=== PATIENT | male | born 1965 | race Two or more races ===

== ENCOUNTER 2020-09-08 10:40 | Outpatient (REF) | payer MEDICARE, MEDICAID, SELFPAY ==
--- NOTE | 2020-09-08 10:52 | XR_ITS ---
EXAMINATION: XR ANKLE, RIGHT XR ANKLE, LEFT CLINICAL INFORMATION: Prior fracture right ankle. Follow-up. Unspecified injury left ankle, initial encounter. COMPARISON: Radiographs right ankle 01/25/2019, 11/19/2018 TECHNIQUE: 3 views of the right ankle and 3 views of the left ankle are obtained separately. There are a total of 6 views. FINDINGS: Right ankle: There is mild posttraumatic deformity distal tibia with some remodeling again noted. There is no acute or healing fracture or dislocation or destructive process. Old screw tracks again noted mid to lower tibial shaft. The talar dome shows no osteochondral lesion. The subtalar joint is unremarkable. There is mild dorsal spurring navicular. Moderate posterior calcaneal spur is present. The retrocalcaneal recess is preserved. Left ankle: There is soft tissue swelling, greater on the lateral side. The malleoli appear intact and the ankle mortise is symmetric. There is a 7 mm linear ossification adjacent to the lateral talar neck which may represent a cortical avulsion. Otherwise, there is no fracture or dislocation. The talar dome shows no osteochondral lesion. There is a small incidental corticated ossicle adjacent to tip medial malleolus. The subtalar joint is not well visualized lateral view likely related to positioning. There is small posterior and borderline plantar calcaneal spurs. XR/XR ankle RT min 3V IMPRESSION: 1. Right: Old posttraumatic deformity distal tibia. No acute or healing fracture. No destructive process. Moderate posterior calcaneal spur. 2. Left: Soft tissue swelling, greater on lateral side. Question fine linear cortical avulsion from lateral talar neck.
== END 2020-09-08 10:41 | disposition home or self-care (01) ==
LOC: HO.XRAY 10:40
PROVIDERS: PCP Internal Medicine; Referring Provider Internal Medicine; Visit Provider Orthopaedic Surgery
DX: S99.912A Unspecified injury of left ankle, initial encounter (principal); S82.891A Other fracture of right lower leg, initial encounter for closed fracture
CPT/HCPCS: 73610; 99212

== ENCOUNTER → 2021-04-19 13:47 | Outpatient (BNVA) | payer OTHER, SELFPAY | PROVIDERS: Visit Provider Orthopaedic Surgery | DX: S99.912D Unspecified injury of left ankle, subsequent encounter (principal) | CPT/HCPCS: 99212 ==

== ENCOUNTER 2021-05-19 03:33 | Emergency (ER) | payer OTHER, SELFPAY ==
[2021-05-19 03:43] VITALS: BP 138/64; BP 142/77; PULSE 47; PULSE 60; RESP 18; TEMP 36.8; O2SAT 98; BMI 27.1
[2021-05-19 05:46] VITALS: BP 168/78; PULSE 52; RESP 17; O2SAT 99
--- NOTE | 2021-05-19 06:02 | PC.NURSE ---
Anirudh bandage applied to L ankle per Dr Huntley's instructions
--- NOTE | 2021-05-19 06:09 | ED.EXTPRO ---
HPI - Extremity Problem General Chief complaint: Extremity Problem Stated complaint: ankle pain Time Seen by Provider: 05/19/21 06:09 Source: patient Mode of arrival: ambulatory History of Present Illness HPI Narrative: 55-year-old male with history of hypertension presents with persistent swelling and discomfort at the left ankle that has been ongoing since he sprained at approximately 7 months ago. He denies any associated redness or injury to the left foot and states that he follow-up with his primary care provider who has referred him to physical therapy. Patient states that around the ankle it continues to swell throughout the day while he is walking. Related Data Home Medications Medication Instructions Recorded Confirmed atenolol 100 mg tablet 100 mg PO DAILY 09/08/20 09/18/20 atorvastatin 20 mg tablet 20 mg PO DAILY 09/08/20 09/18/20 gabapentin 300 mg capsule 300 mg PO DAILY 09/08/20 09/18/20 nifedipine 30 mg tablet,extended 30 mg PO DAILY 09/08/20 09/18/20 release Allergies Allergy/AdvReac Type Severity Reaction Status Date / Time NSAIDS (Non-Steroidal Allergy Mild RASH Verified 05/19/21 03:43 Anti-Inflamma [Nsaids] Penicillins Allergy Mild RASH Verified 05/19/21 03:43 cyclobenzaprine Allergy Unknown UNKNOWN Verified 05/19/21 03:43 [CYCLOBENZAPRINE] ibuprofen Allergy Unknown GI upset, Verified 05/19/21 03:43 STOMACH PAIN AND VOMITING lisinopril [LISINOPRIL] Allergy Unknown UNKNOWN, Verified 05/19/21 03:43 swelling, rash, SEVERE LEG EDEMA naproxen Allergy Unknown Unknown Verified 05/19/21 03:43 penicillin V Allergy Unknown rash Verified 05/19/21 03:43 tramadol [From ULTRAM] Allergy Unknown SEIZURES Verified 05/19/21 03:43 Motrin Allergy Unknown STOMACH Uncoded 05/19/21 03:43 PAIN AND VOMITING Review of Systems Review of Systems: Pertinent positives and negatives as stated in HPI 10 point review of systems otherwise negative. COUNTS INCLUDE 234 BEDS AT THE [facility] Past Medical History Source: nursing notes reviewed Medical History Closed right ankle fracture Injury of left ankle Surgical History Status post insertion of spinal cord stimulator Family History Family History Mother No problems noted. Father No problems noted. Social History Social History Alcohol intake: never Advance Directives: No Advance Directives Information Provided: No Current occupational status: unemployed Physical Exam Vital Signs: Vital Signs: Last Vital Signs Temp 98.3 F 05/19/21 03:43 Pulse 52 05/19/21 05:46 Resp 17 05/19/21 05:46 BP 168/78 H 05/19/21 05:46 Pulse Ox 99 05/19/21 05:46 Body Mass Index 27.1 VITAL SIGNS: Reviewed. GENERAL: Well developed, well nourished, in no acute distress. HEAD: Normocephalic/atraumatic EYES: PERRLA, EOMI OROPHARYNX: no oral lesions noted, posterior pharynx clear LUNGS: Normal breath sounds. No adventitious sounds or accessory muscle use. SpO2<99> CARDIOVASCULAR: Regular rate and rhythm without noted murmurs ABDOMEN: Soft, non-tender, non-distended with bowel sounds. LEFT ANKLE: No deformities noted but mild swelling noted to the lateral malleolus, capillary refill less than 3 seconds, sensation is intact, palpable DP and PT SKIN: Inspection of the skin reveals no rashes NEUROLOGIC: Alert and oriented x 4. Course Course Course Narrative: 55-year-old male with history and clinical presentation consistent with persistent swelling likely secondary to venous insufficiency no evidence to suggest infection or vascular compromise. Discussed with patient the use compression while awaiting his appointment with physical therapy this coming . Anirudh wrap was placed and patient was discharged in stable condition. Discharge Plan Discharge Clinical Impression: Chronic pain of left ankle Patient Disposition: Home, Self-Care Instructions: Swollen Joint (ED) Additional Instructions: 1. Resume all home medications as prescribed. 2. Please follow-up with your primary care provider for re-evaluation and further outpatient management. 3. Recommend keeping some form of compression to the left ankle until you are evaluated by physical therapy. Return to the ER for acute worsening of symptoms. Prescriptions: No Action atenolol 100 mg tablet 100 mg PO DAILY RF: 0 nifedipine 30 mg tablet extended release 30 mg PO DAILY RF: 0 gabapentin 300 mg capsule 300 mg PO DAILY RF: 0 atorvastatin 20 mg tablet 20 mg PO DAILY RF: 0 Referrals: Physician,Unknown [Primary Care Provider] - 2 days
== END 2021-05-19 06:31 | disposition home or self-care (01) ==
PROVIDERS: Emergency Provider Student in an Organized Health Care Education/Training Program
DX: M25.572 Pain in left ankle and joints of left foot (principal); G89.29 Other chronic pain; I10 Essential (primary) hypertension; Z79.899 Other long term (current) drug therapy
CPT/HCPCS: 99283; 99284

== ENCOUNTER 2021-06-01 09:43 | Outpatient (REF) | payer OTHER, SELFPAY | END 2021-06-01 09:44 | disposition home or self-care (01) | LOC: HO.LAB 09:43 | PROVIDERS: PCP Registered Nurse; Visit Provider Registered Nurse | DX: Z13.89 Encounter for screening for other disorder (principal) ==

== ENCOUNTER 2021-06-05 06:42 | Outpatient (REF) | payer OTHER, SELFPAY ==
[2021-06-05 07:45] LABS: Blood Urea Nitrogen 19 mg/dL (9-16); Estimated Glomerular Filt Rate 58
== END 2021-06-05 06:43 | disposition home or self-care (01) ==
LOC: HO.LAB 06:42
PROVIDERS: PCP Registered Nurse; Visit Provider Registered Nurse
DX: Z00.00 Encounter for general adult medical examination without abnormal findings (principal); I10 Essential (primary) hypertension
CPT/HCPCS: 36415; 82565; 84520

== ENCOUNTER 2021-06-06 08:25 | Outpatient (REF) | payer OTHER, SELFPAY ==
--- NOTE | ~2021-06-06 | CT_ITS ---
EXAMINATION: CT LEFT ANKLE WITH CONTRAST, LEFT CT FOOT WITH CONTRAST, LEFT CLINICAL INFORMATION: Left ankle and foot swelling and pain. COMPARISON: Most recent right ankle radiographs dated 09/08/2020. TECHNIQUE: Contiguous axial CT images of the left ankle and foot were obtained following the administration of 85 mL Omnipaque 350 contrast. Multiplanar reformats were provided and reviewed. FINDINGS: Evaluation somewhat limited secondary to patient motion. Motion artifact through the midfoot at the level of the metatarsals. No acute fracture or dislocation. No significant joint space narrowing or marginal osteophytes. No talar osteochondral lesion. No concerning lytic or blastic osseous lesion. Corticated ossifications adjacent to the medial malleolus, likely representing accessory ossicles versus remote fracture fragments. Small ossification within the distal posterior tibialis tendon. Mild enthesopathic spurring at the anterior aspect of the lateral malleolus. Additional tiny ossifications adjacent to the lateral malleolus, which likely represent a remote avulsion injuries. The visualized flexor and extensor tendons are grossly intact, however, evaluation is limited on CT examination. Lateral subcutaneous edema. No abnormal soft tissue mass or fluid collection. No abnormal soft tissue enhancement. CT/CT foot LT w con IMPRESSION: 1. Lateral soft tissue swelling without organized soft tissue fluid collection or mass. No abnormal soft tissue enhancement. 2. No acute fracture or dislocation. Accessory ossicles versus remote fracture fragments adjacent to the medial and lateral malleoli.
--- NOTE | ~2021-06-06 | CT_ITS ---
EXAMINATION: CT LEFT ANKLE WITH CONTRAST, LEFT CT FOOT WITH CONTRAST, LEFT CLINICAL INFORMATION: Left ankle and foot swelling and pain. COMPARISON: Most recent right ankle radiographs dated 09/08/2020. TECHNIQUE: Contiguous axial CT images of the left ankle and foot were obtained following the administration of 85 mL Omnipaque 350 contrast. Multiplanar reformats were provided and reviewed. FINDINGS: Evaluation somewhat limited secondary to patient motion. Motion artifact through the midfoot at the level of the metatarsals. No acute fracture or dislocation. No significant joint space narrowing or marginal osteophytes. No talar osteochondral lesion. No concerning lytic or blastic osseous lesion. Corticated ossifications adjacent to the medial malleolus, likely representing accessory ossicles versus remote fracture fragments. Small ossification within the distal posterior tibialis tendon. Mild enthesopathic spurring at the anterior aspect of the lateral malleolus. Additional tiny ossifications adjacent to the lateral malleolus, which likely represent a remote avulsion injuries. The visualized flexor and extensor tendons are grossly intact, however, evaluation is limited on CT examination. Lateral subcutaneous edema. No abnormal soft tissue mass or fluid collection. No abnormal soft tissue enhancement. CT/CT ankle LT w con IMPRESSION: 1. Lateral soft tissue swelling without organized soft tissue fluid collection or mass. No abnormal soft tissue enhancement. 2. No acute fracture or dislocation. Accessory ossicles versus remote fracture fragments adjacent to the medial and lateral malleoli.
[2021-06-06] MEDS: iohexoL 350 MG/ML 100 ML INFUS..BTL IV (10:02)
== END 2021-06-06 08:26 | disposition home or self-care (01) ==
LOC: HO.CT 08:25
PROVIDERS: PCP Registered Nurse; Visit Provider Registered Nurse
DX: M25.572 Pain in left ankle and joints of left foot (principal); M79.605 Pain in left leg
CPT/HCPCS: 73701; Q9967

== ENCOUNTER 2021-06-11 12:00 | Outpatient (RCR) | payer OTHER, SELFPAY | END 2021-07-12 13:35 | disposition home or self-care (01) | LOC: HO.PT 12:00 | PROVIDERS: PCP Registered Nurse; Visit Provider Registered Nurse | DX: M79.605 Pain in left leg (principal) | CPT/HCPCS: 97110; 97140; 97161; 97530 ==

== ENCOUNTER 2021-06-17 10:40 | Emergency (ER) | payer OTHER, SELFPAY ==
--- NOTE | ~2021-06-17 | US_ITS ---
EXAMINATION: US VENOUS ULTRASOUND WITH DOPPLER LOWER EXTREMITY, LEFT CLINICAL INFORMATION: Left ankle swelling COMPARISON: None TECHNIQUE: Ultrasound of the deep veins is performed from the hip to the calf with compression sonography and color and pulse Doppler assessment. Spectral analysis with color-flow imaging is performed. FINDINGS: There is normal venous compression and respiratory variation and augmented flow. The visualized common femoral vein, superficial femoral vein, profunda femoral vein, popliteal vein, and the trifurcation region shows no evidence of deep venous thrombosis. There is no significant popliteal fossa cyst. If the patient's symptoms persist, followup ultrasound in 5 days 7 days might be of value to exclude proximal propagation from a non-visualized calf vein. US/US venous duplex LE LT IMPRESSION: No DVT demonstrated in the left lower extremity.
[2021-06-17 11:38] VITALS: BP 143/60; PULSE 54; RESP 18; TEMP 35.8; O2SAT 100; BMI 26.8
--- NOTE | 2021-06-17 14:44 | ED.EXTPRO ---
HPI - Extremity Problem General Chief complaint: Extremity Problem <GERRI Constantino Last Filed: 06/17/21 16:05> Stated complaint: left ankle pain <GERRI Constantino Last Filed: 06/17/21 16:05> Time Seen by Provider: 06/17/21 12:57 <GERRI Constantino Last Filed: 06/17/21 16:05> Source: patient <GERRI Constantino Last Filed: 06/17/21 16:05> Mode of arrival: ambulatory <GERRI Constantino Last Filed: 06/17/21 16:05> Limitations: no limitations <GERRI Constantino Last Filed: 06/17/21 16:05> History of Present Illness HPI Narrative: Patient presents to ED for left ankle pain and intermittent left ankle swelling for the past 8 months. Denies any leg swelling, knee swelling, thigh swelling, chest pain, shortness of breath, recent long travel, recent surgery, any recent trauma. Patient's CT scan results last week awaiting for results. Patient states last night his left ankle was significantly swollen and woke up this morning the swelling resolved. Patient state right lower extremity is normal. <GERRI Constantino Last Filed: 06/17/21 16:05> MD Complaint: extremity pain and extremity swelling <GERRI Constantino Last Filed: 06/17/21 16:05> Related Data Home medications: Home Medications Medication Instructions Recorded Confirmed atenolol 100 mg tablet 100 mg PO DAILY 09/08/20 09/18/20 atorvastatin 20 mg tablet 20 mg PO DAILY 09/08/20 09/18/20 gabapentin 300 mg capsule 300 mg PO DAILY 09/08/20 09/18/20 nifedipine 30 mg tablet,extended 30 mg PO DAILY 09/08/20 09/18/20 release Previous Rx's Medication Instructions Recorded oxycodone-acetaminophen 5 mg-325 1 tab PO TID PRN #9 tab 06/17/21 mg tablet (Percocet) <GERRI Constantino Last Filed: 06/17/21 16:05> Allergies/Adverse reactions: Allergies Allergy/AdvReac Type Severity Reaction Status Date / Time NSAIDS (Non-Steroidal Allergy Mild RASH Verified 06/25/21 09:50 Anti-Inflamma [Nsaids] Penicillins Allergy Mild RASH Verified 06/25/21 09:50 cyclobenzaprine Allergy Unknown UNKNOWN Verified 06/25/21 09:50 [CYCLOBENZAPRINE] ibuprofen Allergy Unknown GI upset, Verified 06/25/21 09:50 STOMACH PAIN AND VOMITING lisinopril [LISINOPRIL] Allergy Unknown UNKNOWN, Verified 06/25/21 09:50 swelling, rash, SEVERE LEG EDEMA naproxen Allergy Unknown Unknown Verified 06/25/21 09:50 penicillin V Allergy Unknown rash Verified 06/25/21 09:50 tramadol [From ULTRAM] Allergy Unknown SEIZURES Verified 06/25/21 09:50 Motrin Allergy Unknown STOMACH Uncoded 06/25/21 09:50 PAIN AND VOMITING <GERRI Constantino Last Filed: 06/17/21 16:05> Review of Systems Review of Systems: Yes all other systems are reviewed and are negative and unobtainable due to endotracheal tube <GERRI Constantino Last Filed: 06/17/21 16:05> Constitutional: Constitutional: Reports as per HPI and Reports no additional constitutional complaints <GERRI Constantino Last Filed: 06/17/21 16:05> Eyes: Eyes: Reports as per HPI and Reports no additional eye complaints <GERRI Constantino Last Filed: 06/17/21 16:05> ENT: Reports system reviewed and no additional complaints, except as documented and Reports as per HPI <GERRI Constantino Last Filed: 06/17/21 16:05> Cardiovascular: Cardiovascular: Reports as per HPI and Reports no additional cardiovascular complaints <GERRI Constantino Last Filed: 06/17/21 16:05> Respiratory: Respiratory: Reports as per HPI and Reports no additional respiratory complaints <GERRI Constantino Last Filed: 06/17/21 16:05> Gastrointestinal: Gastrointestinal: Reports as per HPI and Reports no additional gastrointestinal complaints <GERRI Constantino Last Filed: 06/17/21 16:05> Genitourinary: Genitourinary: Reports as per HPI <GERRI Constantino Last Filed: 06/17/21 16:05> Musculoskeletal: Musculoskeletal: Reports no additional musculoskeletal complaints and Reports arthralgias (Ankle) <GERRI Constantino Last Filed: 06/17/21 16:05> Neurologic: Reports system reviewed and no additional complaints, except as documented and Reports as per HPI <GERRI Constantino - Last Filed: 06/17/21 16:05> Psychiatric: Psychiatric: Reports no additional psychiatric complaints and Reports as per HPI <GERRI Constantino - Last Filed: 06/17/21 16:05> Endocrine: Endocrine: Reports no additional endocrine complaints and Reports as per HPI <GERRI Constantino - Last Filed: 06/17/21 16:05> [facility] Past Medical History Medical History: Medical History Closed right ankle fracture Injury of left ankle <GERRI Constantino - Last Filed: 06/17/21 16:05> Surgical History: Surgical History Status post insertion of spinal cord stimulator <GERRI Constantino - Last Filed: 06/17/21 16:05> Family History Family History: Family History Mother No problems noted. Father No problems noted. <GERRI Constantino - Last Filed: 06/17/21 16:05> Social History Social History: Social History Alcohol intake: never Advance Directives: Yes Advance Directives Information Provided: Yes Advance Directives on File: No Current occupational status: unemployed <GERRI Constantino - Last Filed: 06/17/21 16:05> Physical Exam Vital Signs: Vital Signs: Last Vital Signs Temp 98.0 F 06/17/21 14:57 Pulse 55 06/17/21 14:57 Resp 16 06/17/21 14:57 BP 140/75 H 06/17/21 14:57 Pulse Ox 100 06/17/21 14:57 Body Mass Index 26.8 <GERRI Constantino Last Filed: 06/17/21 16:05> Vital Signs: Last Vital Signs Temp 98.0 F 06/17/21 14:57 Pulse 55 06/17/21 14:57 Resp 16 06/17/21 14:57 BP 140/75 H 06/17/21 14:57 Pulse Ox 100 06/17/21 14:57 Body Mass Index 26.8 <Rosendo Escobar DO - Last Filed: 07/16/21 11:17> Const: General: cooperative, healthy appearing, comfortable, no acute distress, well developed, alert, awake and Physically active <GERRI Constantino Last Filed: 06/17/21 16:05> Orientation/consciousness: patient oriented x3 <GERRI Constantino Last Filed: 06/17/21 16:05> HENMT: Head: Yes normal to inspection, Yes No palpable skull fracture present, Yes normocephalic, Yes atraumatic and No abrasion <GERRI Cosntantino Last Filed: 06/17/21 16:05> Eyes: General: appearance normal, both eyes and all related structures <GERRI Constantino Last Filed: 06/17/21 16:05> Neck: Neck: Yes normal visual inspection, Yes full ROM, Yes no lymphadenopathy, Yes no meningeal signs, Yes trachea midline, Yes supple and No tender <GERRI Constantino Last Filed: 06/17/21 16:05> Chest: Chest palpation & inspection: normal inspection of the chest and normal palpation of entire chest wall <GERRI Constantino Last Filed: 06/17/21 16:05> Resp: Effort & Inspection: normal respiratory effort and able to speak in complete sentences <GERRI Constantino Last Filed: 06/17/21 16:05> Auscultation: clear to auscultation bilaterally <GERRI Constantino Last Filed: 06/17/21 16:05> Cardio: Jugular venous distension: no JVD <GERRI Constantino Last Filed: 06/17/21 16:05> Heart sounds: S1 normal heart sound present and S2 normal heart sound present <GERRI Constantino Last Filed: 06/17/21 16:05> GI: Inspection: Yes normal to inspection and No abdominal wall ecchymosis <GERRI Constantino Last Filed: 06/17/21 16:05> Palpation (GI): not firm, nontender, no guarding and not rigid <GERRI Constantino Mansoor Last Filed: 06/17/21 16:05> : General: No CVA tenderness and Yes no CVA tenderness <GERRI Constantino Mansoor Last Filed: 06/17/21 16:05> Back/Spine/Pelvis: Back: no CVA tenderness, No CVA tenderness and No Berumen-Mckay sign present <GERIR Constantino Mansoor Last Filed: 06/17/21 16:05> Skin: General skin exam: no rashes or lesions noted and elasticity normal <GERRI Constantino Mansoor Last Filed: 06/17/21 16:05> Neuro: General: patient oriented x3, gait normal and no meningeal signs <GERRI Constantino Mansoor Last Filed: 06/17/21 16:05> Cranial nerves: Yes CN's II-XII intact bilaterally <GERRI Constantino Last Filed: 06/17/21 16:05> Extrem: Other: Right lower extremity normal. Motor/neuro/vascular exam intact. Negative for right lower extremity swelling. <GERRI Constantino Mansoor Last Filed: 06/17/21 16:05> General: Yes normal to inspection and Yes full ROM <GERRI Constantino Filed: 06/17/21 16:05> Ankle/foot/toe images: 1. Mild tenderness on palpation. Presently negative for any swelling of left lower extremity. Motor/vascular/neuro exam is intact. Negative for any open wounds, pus discharge, foul odor, redness, black/blue discoloration, coolness, or hotness. Negative for any pitting edema <GERRI Constantino Mansoor Last Filed: 06/17/21 16:05> Psych: Appearance: grossly normal, well kempt and not disheveled <GERRI Constantino Last Filed: 06/17/21 16:05> Course Course Course Narrative: Patient show me a picture on his phone of his left ankle yesterday that was significantly swollen. Although presently negative for any swelling of left lower extremity was sent for ultrasound to rule out DVT. Will review CT scan results. <GERRI Constantino Mansoor Last Filed: 06/17/21 16:05> Reevaluation(s) Reevaluation #1: Ultrasound negative for DVT. CT scan was reviewed and shows accessory ossicles versus remote fracture fragment medial and lateral malleoli. Patient having the symptoms for the past 8 months. no splint indicated. Patient will be placed <GERRI Constantino - Last Filed: 06/17/21 16:05> Time: 15:02 <GERRI Constantino - Last Filed: 06/17/21 16:05> MDM - Extremity (Nontraumatic) MDM Narrative Medical decision making narrative: Chronic ankle pain <GERRI Constantino Last Filed: 06/17/21 16:05> Discharge Plan Discharge Clinical Impression: Ankle pain, left, Lower extremity edema <GERRI Constantino Last Filed: 06/17/21 16:05> Patient Disposition: Home, Self-Care <GERRI Constantino Last Filed: 06/17/21 16:05> Instructions: Arthralgia (ED) <GERRI Constantino Last Filed: 06/17/21 16:05> Additional Instructions: Lower extremity ultrasound came back negative for blood clot. Ankle CT was reviewed and shows accessary ossicles versus old fracture fragments of the medial and lateral malleoli. Please follow-up with your PCP and orthopedic. Return to the ED for any leg pain, calf swelling, chest pain, shortness of breath, redness of lower extremities, pus discharge, foul odor, fever, or chills. <GERRI Constantino Last Filed: 06/17/21 16:05> Prescriptions: New oxycodone-acetaminophen [Percocet] 5-325 mg tablet 1 tab PO TID PRN (Reason: pain) Qty: 9 RF: 0 No Action atenolol 100 mg tablet 100 mg PO DAILY RF: 0 nifedipine 30 mg tablet extended release 30 mg PO DAILY RF: 0 gabapentin 300 mg capsule 300 mg PO DAILY RF: 0 atorvastatin 20 mg tablet 20 mg PO DAILY RF: 0 <GERRI Constantino Last Filed: 06/17/21 16:05> Referrals: Alcon Reza MD [Physician] - 2 days (Left ankle accessory ossicles versus remote old fracture fragments of medial and lateral malleoli.) <GERRI Constantino Last Filed: 06/17/21 16:05> Stand Alone Forms: Work/School Release <GERRI Constantino - Last Filed: 06/17/21 16:05> Interventions: ED Discharge Assessment Last Done: 06/17/21 15:15 <GERRI Constantino - Last Filed: 06/17/21 16:05> Discharge Date/Time: 06/17/21 15:16 <GERRI Constantino - Last Filed: 06/17/21 16:05> Print Language: Occitan <GERRI Constantino - Last Filed: 06/17/21 16:05>
[2021-06-17 14:57] VITALS: BP 140/75; PULSE 55; RESP 16; TEMP 36.7; O2SAT 100
== END 2021-06-17 15:16 | disposition home or self-care (01) ==
PROVIDERS: Emergency Provider Student in an Organized Health Care Education/Training Program; PCP Registered Nurse
DX: M25.572 Pain in left ankle and joints of left foot (principal); R60.0 Localized edema; Z79.899 Other long term (current) drug therapy
CPT/HCPCS: 93971; 99284

== ENCOUNTER → 2021-06-21 12:02 | Outpatient (BNVA) | payer OTHER, SELFPAY | PROVIDERS: PCP Registered Nurse; Visit Provider Orthopaedic Surgery | DX: S99.912D Unspecified injury of left ankle, subsequent encounter (principal); M19.079 Primary osteoarthritis, unspecified ankle and foot | CPT/HCPCS: 99212 ==

== ENCOUNTER 2021-06-25 09:32 | Emergency (ER) | payer OTHER, SELFPAY ==
--- NOTE | ~2021-06-25 | XR_ITS ---
EXAMINATION: XR RIBS, RIGHT CLINICAL INFORMATION: Right-sided lower rib pain. Injury. COMPARISON: None TECHNIQUE: 3 views of the right ribs were obtained. FINDINGS: The lungs are well-expanded and clear of acute process. The heart size and pulmonary vascularity is normal. There is epidural electrode in the mid cervical spine. There is moderate spondylosis throughout the dorsal spine. Multiple views of right ribs reveal no visible rib fracture or bony abnormality. The soft tissues are normal. XR/XR ribs RT min 3V w CXR1V IMPRESSION: Unremarkable chest exam. Unremarkable right rib exam.
[2021-06-25 09:50] VITALS: BP 154/87; PULSE 63; RESP 18; TEMP 37.2; O2SAT 99; BMI 26.8
--- NOTE | 2021-06-25 10:35 | ED_ITS ---
HPI - General Adult General Chief complaint: General Medical Stated complaint: rib pain Time Seen by Provider: 06/25/21 10:20 Source: patient Mode of arrival: ambulatory Limitations: no limitations History of Present Illness HPI narrative: Patient presents to the ED for right lower rib pain that is worse on movement, heavy lifting, and when he takes a deep breath. Patietn states right rib trauma that occurred last week. patient states by accident he walked into the open door of his uncle's car. Patient states he walked into the edge/blunt metal part of the door pretty hard and ever since that trauma he has had those symptoms. patient states he had significant bruise in that area, but it improved. Patient denies any other trauma. Patient denies any rectal bleeding, coughing up blood, abdominal pain, headache, or rectal bleeding. Patient denies any recent surgery, recent long travel, any estrogen use, drug use or any pmh of blood clots. patient vaccinaged against covid. Related Data Home Medications Medication Instructions Recorded Confirmed atenolol 100 mg tablet 100 mg PO DAILY 09/08/20 09/18/20 atorvastatin 20 mg tablet 20 mg PO DAILY 09/08/20 09/18/20 gabapentin 300 mg capsule 300 mg PO DAILY 09/08/20 09/18/20 nifedipine 30 mg tablet,extended 30 mg PO DAILY 09/08/20 09/18/20 release Previous Rx's Medication Instructions Recorded oxycodone-acetaminophen 5 mg-325 1 tab PO TID PRN #9 tab 06/17/21 mg tablet (Percocet) Allergies Allergy/AdvReac Type Severity Reaction Status Date / Time NSAIDS (Non-Steroidal Allergy Mild RASH Verified 06/25/21 09:50 Anti-Inflamma [Nsaids] Penicillins Allergy Mild RASH Verified 06/25/21 09:50 cyclobenzaprine Allergy Unknown UNKNOWN Verified 06/25/21 09:50 [CYCLOBENZAPRINE] ibuprofen Allergy Unknown GI upset, Verified 06/25/21 09:50 STOMACH PAIN AND VOMITING lisinopril [LISINOPRIL] Allergy Unknown UNKNOWN, Verified 06/25/21 09:50 swelling, rash, SEVERE LEG EDEMA naproxen Allergy Unknown Unknown Verified 06/25/21 09:50 penicillin V Allergy Unknown rash Verified 06/25/21 09:50 tramadol [From ULTRAM] Allergy Unknown SEIZURES Verified 06/25/21 09:50 Motrin Allergy Unknown STOMACH Uncoded 06/25/21 09:50 PAIN AND VOMITING Review of Systems Review of Systems: Yes all other systems are reviewed and are negative Constitutional: Constitutional: Reports as per HPI and Reports no additional constitutional complaints Eyes: Eyes: Reports as per HPI and Reports no additional eye complaints ENT: Reports system reviewed and no additional complaints, except as documented and Reports as per HPI Cardiovascular: Cardiovascular: Reports as per HPI, Reports no additional cardiovascular complaints and Reports chest pain (right lower rib pain.) Respiratory: Respiratory: Reports as per HPI and Reports no additional respiratory complaints Gastrointestinal: Gastrointestinal: Reports as per HPI and Reports no additional gastrointestinal complaints Genitourinary: Genitourinary: Reports no additional male genitourinary complaints and Reports as per HPI Musculoskeletal: Musculoskeletal: Reports no additional musculoskeletal complaints and Reports as per HPI Neurologic: Reports system reviewed and no additional complaints, except as documented and Reports as per HPI Psychiatric: Psychiatric: Reports no additional psychiatric complaints and Reports as per HPI [facility] Past Medical History Medical History Closed right ankle fracture Injury of left ankle Surgical History Status post insertion of spinal cord stimulator Family History Family History Mother No problems noted. Father No problems noted. Social History Social History Alcohol intake: never Advance Directives: Yes Advance Directives Information Provided: Yes Advance Directives on File: No Current occupational status: unemployed Physical Exam Vital Signs: Vital Signs: Last Vital Signs Temp 98.9 F 06/25/21 09:50 Pulse 63 06/25/21 09:50 Resp 18 06/25/21 09:50 BP 154/87 H 06/25/21 09:50 Pulse Ox 99 06/25/21 09:50 Body Mass Index 26.8 Const: General: cooperative, healthy appearing, comfortable, no acute distress, well developed, alert, awake and Physically active Orientation/consciousness: patient oriented x3 HENMT: Head: Yes normal to inspection, Yes No palpable skull fracture present, Yes normocephalic, Yes atraumatic and No abrasion Eyes: General: appearance normal, both eyes and all related structures Neck: Neck: Yes normal visual inspection, Yes full ROM, Yes no lymphadenopathy, Yes no meningeal signs, Yes trachea midline and No supple Chest: Chest/axillae images: 1. tenderness on palpation and movement of torso. negative for any erythema or fluctulance Resp: Effort & Inspection: normal respiratory effort and able to speak in complete sentences Auscultation: clear to auscultation bilaterally Cardio: Jugular venous distension: no JVD Heart sounds: S1 normal heart sound present and S2 normal heart sound present GI: Inspection: Yes normal to inspection and No abdominal wall ecchymosis Palpation (GI): Soft to palpation, not firm, nontender, no guarding and not rigid : General: No CVA tenderness and Yes no CVA tenderness Back/Spine/Pelvis: Back: no CVA tenderness, No CVA tenderness and No back tenderness Skin: General skin exam: no rashes or lesions noted and elasticity normal Neuro: General: patient oriented x3, gait normal, no meningeal signs and CN's II-XI intact bilaterally Cranial nerves: Yes CN's II-XII intact bilaterally Extrem: General: Yes normal to inspection and Yes full ROM Psych: Appearance: grossly normal, well kempt and not disheveled Course Course Course Narrative: Patient sent for rib/chest xray. Reevaluation(s) Reevaluation #1: [facility] fast ultrasound of abdomen negative for any free fluid to indicate Blood. Rib/chest xray negative for fractures. Diagnosis contusion. Rib pain/pleuretic pain due to chest wall trauama. Disucssed case [facility] Dr. Caballero and states no concerned for PE and patient can be discharged as contusion. patient has no history of blood clots. labs, EKG, troponin, and D- dimer not indicated. patient discharged with naproxen and cyclobenzaprine. patient educated on signs and symptoms of PE and informed to return to the ED if he has them. Time: 11:26 Discharge Plan Discharge Clinical Impression: Chest wall contusion Patient Disposition: Home, Self-Care Instructions: Costochondritis (ED), Contusion in Adults (ED) Additional Instructions: Reutrn to the ED immediately for coughing up blood, shortness of breath, worsening chest pain on inspiration, dizziness, leg swelling, calf pain, chest pain, or any other concerning symptoms. Continue taking percocet for pain relief. Please follow up with PCP. Prescriptions: No Action oxycodone-acetaminophen [Percocet] 5-325 mg tablet 1 tab PO TID PRN (Reason: pain) Qty: 9 RF: 0 atenolol 100 mg tablet 100 mg PO DAILY RF: 0 nifedipine 30 mg tablet extended release 30 mg PO DAILY RF: 0 gabapentin 300 mg capsule 300 mg PO DAILY RF: 0 atorvastatin 20 mg tablet 20 mg PO DAILY RF: 0 Interventions: ED Discharge Assessment Last Done: 06/25/21 11:36 Discharge Date/Time: 06/25/21 11:38 Print Language: Welsh
== END 2021-06-25 11:38 | disposition home or self-care (01) ==
PROVIDERS: Emergency Provider Emergency Medicine; PCP Registered Nurse
DX: S20.213A Contusion of bilateral front wall of thorax, initial encounter (principal); R07.81 Pleurodynia; X50.0XXA Overexertion from strenuous movement or load, initial encounter; X50.9XXA Other and unspecified overexertion or strenuous movements or postures, initial encounter; Y93.9 Activity, unspecified; Y92.9 Unspecified place or not applicable; Y99.9 Unspecified external cause status; Z79.899 Other long term (current) drug therapy
CPT/HCPCS: 71101; 99283

== ENCOUNTER 2021-09-19 11:47 | Outpatient (REF) | payer OTHER, SELFPAY ==
--- NOTE | ~2021-09-19 | XR_ITS ---
EXAMINATION: XR HAND, BILATERAL CLINICAL INDICATION: Pain. COMPARISON: No films to compare. TECHNIQUE: 3 views of each hand. FINDINGS: LEFT HAND: 3 views of the left hand do not demonstrate fracture or dislocation. No significant degeneration is seen here. Alignment is felt to be within normal limits. Some possible early degeneration at the base of the thumb and some early degeneration at the articulation of the radius with the proximal carpal row. RIGHT HAND: 3 views the right hand demonstrate joint spaces to be fairly well preserved. Again some degeneration at the articulation of the radius with the proximal carpal row and mild degeneration at the base of the thumb. No acute bony erosion or osteopenia is seen. XR/XR hand LT min 3V IMPRESSION: Some mild early degenerative changes are noted. No acute bony finding.
--- NOTE | ~2021-09-19 | XR_ITS ---
EXAMINATION: XR HAND, BILATERAL CLINICAL INDICATION: Pain. COMPARISON: No films to compare. TECHNIQUE: 3 views of each hand. FINDINGS: LEFT HAND: 3 views of the left hand do not demonstrate fracture or dislocation. No significant degeneration is seen here. Alignment is felt to be within normal limits. Some possible early degeneration at the base of the thumb and some early degeneration at the articulation of the radius with the proximal carpal row. RIGHT HAND: 3 views the right hand demonstrate joint spaces to be fairly well preserved. Again some degeneration at the articulation of the radius with the proximal carpal row and mild degeneration at the base of the thumb. No acute bony erosion or osteopenia is seen. XR/XR hand RT min 3V IMPRESSION: Some mild early degenerative changes are noted. No acute bony finding.
== END 2021-09-19 11:48 | disposition home or self-care (01) ==
LOC: HO.XRAY 11:47
PROVIDERS: PCP Nurse Practitioner Primary Care; Visit Provider Nurse Practitioner Primary Care
DX: M79.641 Pain in right hand (principal); M79.642 Pain in left hand
CPT/HCPCS: 73130

== ENCOUNTER 2022-01-25 04:55 | Emergency (ER) | payer OTHER, SELFPAY ==
[2022-01-25 05:00] VITALS: BP 148/88; BP 156/94; PULSE 74; PULSE 97; RESP 16; TEMP 36.1; O2SAT 97; BMI 22.9
--- NOTE | 2022-01-25 05:08 | ED_ITS ---
HPI - General Adult General Chief complaint: General Medical Stated complaint: ARTHRITIS PAIN Time Seen by Provider: 01/25/22 04:57 Source: patient and old records reviewed Mode of arrival: EMS Limitations: no limitations History of Present Illness HPI narrative: arthritis pain in joints x 1 year worse over past week, noted bump in rectal area this week as well MD complaint: arthritis, ?hemorrhoid Onset (ago): year(s) (1 year arthritis, hemorrhoid 1 week ago) Location: left, right, upper extremity and lower extremity Severity: moderate Quality: aching and dull Pain Consistency: constant Relieving factors: none Exacerbating factors: movement Associated symptoms: other (noted new bump in rectum) Treatments prior to arrival: other (states he takes OTC topical treatments and gabapentin) Related Data Home Medications Medication Instructions Recorded Confirmed atenolol 100 mg tablet 100 mg PO DAILY 09/08/20 09/18/20 atorvastatin 20 mg tablet 20 mg PO DAILY 09/08/20 09/18/20 gabapentin 300 mg capsule 300 mg PO DAILY 09/08/20 09/18/20 nifedipine 30 mg tablet,extended 30 mg PO DAILY 09/08/20 09/18/20 release Previous Rx's Medication Instructions Recorded oxycodone-acetaminophen 5 mg-325 1 tab PO TID PRN #9 tab 06/17/21 mg tablet (Percocet) docusate sodium 100 mg capsule 100 mg PO DAILY PRN #30 cap 01/25/22 hydrocodone 5 mg-acetaminophen 325 1 tab PO Q6H PRN #12 tab 01/25/22 mg tablet hydrocortisone 2.5 % topical cream 1 appl ND DAILY PRN #30 g 01/25/22 with perineal applicator (Procto-Med HC) Allergies Allergy/AdvReac Type Severity Reaction Status Date / Time NSAIDS (Non-Steroidal Allergy Mild RASH Verified 06/25/21 09:50 Anti-Inflamma [Nsaids] Penicillins Allergy Mild RASH Verified 06/25/21 09:50 cyclobenzaprine Allergy Unknown UNKNOWN Verified 06/25/21 09:50 [CYCLOBENZAPRINE] ibuprofen Allergy Unknown GI upset, Verified 06/25/21 09:50 STOMACH PAIN AND VOMITING lisinopril [LISINOPRIL] Allergy Unknown UNKNOWN, Verified 06/25/21 09:50 swelling, rash, SEVERE LEG EDEMA naproxen Allergy Unknown Unknown Verified 06/25/21 09:50 penicillin V Allergy Unknown rash Verified 06/25/21 09:50 tramadol [From ULTRAM] Allergy Unknown SEIZURES Verified 06/25/21 09:50 Motrin Allergy Unknown STOMACH Uncoded 06/25/21 09:50 PAIN AND VOMITING Review of Systems Review of Systems: Constitutional : No Fever, No Chills ENT/Mouth : No Ear Pain, No Hoarseness, No sore throat Eyes: No Eye Pain, No Swelling, No Redness, No Foreign Body Cardiovascular : No Chest Pain, No SOB Respiratory : No Cough, No Dyspnea Gastrointestinal : No Nausea, No Vomiting, No Diarrhea, No abdominal Pain, pos rectal bump Genitourinary : No Dysuria, No Hematuria Musculoskeletal : positive joint pain, No Myalgias, No Joint Swelling Skin : No Skin lacerations, No rash Neuro : No Weakness, No Numbness, No Loss of Consciousness, No Dizziness, No Headache Psych : No Anxiety/Panic, No Depression Heme/Lymph: no easy bruising, no Lymphadenopathy Endocrine : No Polyuria, No Polydipsia All other systems reviewed and are negative [facility] Past Medical History Attestation statement: The following information was validated with the patient. Medical History Closed right ankle fracture Injury of left ankle Surgical History Status post insertion of spinal cord stimulator Family History Family History Mother No problems noted. Father No problems noted. Social History Social History (Updated 01/25/22 @ 05:11 by Radha Richey DO) Alcohol intake: never Patient Tobacco Use Status: Never used Tobacco Use of substances other than those prescribed or required for medical reasons: Unknown Advance Directives: No Current occupational status: unemployed Physical Exam ED Vital Signs: Vital Signs - 24 hr 01/25/22 05:00 Temperature 97.0 F Pulse Rate 74 Respiratory Rate 16 Blood Pressure 156/94 H Pulse Oximetry 97 BMI result Body Mass Index 22.9 Appearance: Alert. Oriented X3. No acute distress. Eyes: Pupils equal, round and reactive to light. ENT: Pharynx normal. Neck: Normal inspection. Neck supple. CVS: Pulses normal. Respiratory: No respiratory distress. Abdomen: Soft and nontender. Rectal: external hemorrhoid small non thrombosed Skin: Skin warm and dry. Normal skin color. Normal skin turgor. Extremities: No lower extremity edema. Moves extremities equally and without issue Neuro: Oriented X 3. No motor deficit. No sensory deficit. Course Course Course Narrative: treat K and DC home Medical Decision Making [facility] Narrative Medical decision making narrative: 56 yo male with hx of HTN, HLD, arthritis comes in with c/o worsening arthritis x 1 year he has a PCP appointment in 13 days he has seen his doctor and orthopedics for this. He notes he is having difficulty sleeping due to this over the past week. Will obtain basic labs for lyte abnormality. He also c/o hemorrh oid - it is non-thrombosed will Rx topical treatment and stool softeners Lab Data Result diagrams: 01/25/22 05:22 01/25/22 05:22 Labs: Lab Results 01/25/22 01/25/22 Range/Units 05:22 05:22 WBC 4.9 (4.8-10.8) X10*3/uL RBC 4.24 L (4.60-5.80) X10*6/uL Hgb 12.1 L (14.0-18.0) g/dl Hct 37.3 L (42.0-52.0) % MCV 88.0 (80.0-98.0) fL MCH 28.5 (27.0-33.0) pg MCHC 32.4 (31.0-36.0) g/dl RDW 13.1 (11.0-16.0) % Plt Count 236 (160-400) X10*3/uL MPV 11.0 (9.4-12.4) fL Immature Gran % (Auto) 0.2 (0.0-0.4) % Neut % (Auto) 51.8 (45-73) % Lymph % (Auto) 33.4 (20-40) % [place] % (Auto) 10.7 (2-11) % Eos % (Auto) 3.3 (0-4) % Baso % (Auto) 0.6 (0-2) % Lymph # (Auto) 1.6 (1.2-4.9) X10*3/uL [place] # (Auto) 0.5 (0.1-1.2) X10*3/uL Eos # (Auto) 0.2 (0.0-0.4) X10*3/uL Baso # (Auto) 0.0 (0.0-0.2) X10*3/uL Abs Immat Gran (auto) 0.01 (0.00-0.03) X10*3/uL Absolute Neuts (auto) 2.5 (2.0-8.3) x10*3/uL Absolute Nucleated RBC 0.000 (0.0-0.012) X10*3/uL Nucleated RBC % (auto) 0.0 (0.0-0.2) /100WBC Sodium 140 (135-145) mmol/L Potassium 3.1 L (3.3-5.1) mmol/L Chloride 106 (96-108) mmol/L Carbon Dioxide 26 (22-29) mmol/L Anion Gap 11 L (12-20) BUN 19 H (9-16) mg/dL Creatinine 0.93 (0.5-1.4) mg/dL Estim Creat Clear Calc 91.0 Estimated GFR > 60 Random Glucose 112 (60-115) mg/dL Calcium 8.9 (8.4-10.2) mg/dL Magnesium 2.0 (1.6-2.6) mg/dL Total Bilirubin 1.0 (0.0-1.0) mg/dL Direct Bilirubin 0.4 (0.0-0.5) mg/dL AST 53 H (5-37) U/L ALT 44 H (0-40) U/L Alkaline Phosphatase 119 H (39-117) U/L C-Reactive Protein 0.30 (< or = 0.50) mg/dL Total Protein 6.6 (6.5-8.0) g/dL Albumin 3.9 (3.5-5.0) g/dL Discharge Plan Discharge Clinical Impression: External hemorrhoid, Acute hypokalemia Osteoarthritis Qualifiers: Osteoarthritis location: multiple joints Osteoarthritis type: unspecified Qualified Code(s): M15.9 - Polyosteoarthritis, unspecified Patient Disposition: Home, Self-Care Instructions: Hemorrhoids (ED), Osteoarthritis (ED), Hypokalemia (ED) Additional Instructions: return to ED for any worsening symptoms or concerns please follow up with your doctor as scheduled Prescriptions: New hydrocodone-acetaminophen 5-325 mg tablet 1 tab PO Q6H PRN (Reason: pain) Qty: 12 0RF hydrocortisone [Procto-Med HC] 2.5 % cream with perineal applicator 1 appl ND DAILY PRN (Reason: hemorrhoids) Qty: 30 0RF docusate sodium 100 mg capsule 100 mg PO DAILY PRN (Reason: constipation) Qty: 30 0RF No Action oxycodone-acetaminophen [Percocet] 5-325 mg tablet 1 tab PO TID PRN (Reason: pain) Qty: 9 0RF Rx Instructions: side effect is drowssiness. Do not take at home or while driving. atenolol 100 mg tablet 100 mg PO DAILY 0RF nifedipine 30 mg tablet extended release 30 mg PO DAILY 0RF gabapentin 300 mg capsule 300 mg PO DAILY 0RF atorvastatin 20 mg tablet 20 mg PO DAILY 0RF
[2022-01-25] MEDS: oxyCODONE HCl Immed Release 5 MG TABLET 10 MG PO (05:23)
[2022-01-25 05:26] LABS: MANUAL DIFF FLAG NO
[2022-01-25 05:27] LABS: Basophils Percent Auto 0.6 % (0-2); Eosinophils Absolute Auto 0.2 X10*3/uL (0.0-0.4); Eosinophils Percent Auto 3.3 % (0-4); Hematocrit 37.3 % (42.0-52.0); Hemoglobin 12.1 g/dl (14.0-18.0); Imm Gran Abs Auto 0.01 X10*3/uL (0.00-0.03); Imm Gran Pct Auto 0.2 % (0.0-0.4); Lymphocytes Absolute Auto 1.6 X10*3/uL (1.2-4.9); Lymphocytes Percent Auto 33.4 % (20-40); Mean Corpuscular HGB Conc 32.4 g/dl (31.0-36.0); Mean Corpuscular Hemoglobin 28.5 pg (27.0-33.0); Monocytes Absolute Auto 0.5 X10*3/uL (0.1-1.2); Monocytes Percent Auto 10.7 % (2-11); Neutrophils Absolute Auto 2.5 x10*3/uL (2.0-8.3); Neutrophils Percent Auto 51.8 % (45-73); Platelet Count 236 X10*3/uL (160-400); Red Blood Count 4.24 X10*6/uL (4.60-5.80); Red Cell Distribution Width 13.1 % (11.0-16.0); White Blood Count 4.9 X10*3/uL (4.8-10.8)
[2022-01-25 05:50] LABS: Alanine Aminotransferase 44 U/L (0-40); Albumin Level 3.9 g/dL (3.5-5.0); Alkaline Phosphatase 119 U/L (39-117); Anion Gap 11 (12-20); Aspartate Amino Transferase 53 U/L (5-37); Bilirubin Direct 0.4 mg/dL (0.0-0.5); Blood Urea Nitrogen 19 mg/dL (9-16); Calcium 8.9 mg/dL (8.4-10.2); Carbon Dioxide 26 mmol/L (22-29); Chloride 106 mmol/L (96-108); Estimated Glomerular Filt Rate > 60; Glucose Random 112 mg/dL (60-115); Potassium 3.1 mmol/L (3.3-5.1); Sodium 140 mmol/L (135-145); Total Protein 6.6 g/dL (6.5-8.0)
== END 2022-01-25 06:32 | disposition home or self-care (01) ==
LOC: HO.ED 05:26
PROVIDERS: Emergency Provider Emergency Medicine
DX: M15.9 Polyosteoarthritis, unspecified (principal); K64.4 Residual hemorrhoidal skin tags; E87.6 Hypokalemia; I10 Essential (primary) hypertension
CPT/HCPCS: 36415; 80048; 80076; 83735; 85025; 86140; 99283; 99284

== ENCOUNTER 2022-03-28 11:04 | Outpatient (REF) | payer OTHER, SELFPAY ==
--- NOTE | ~2022-03-28 | CT_ITS ---
EXAMINATION: CT HEAD WITHOUT CONTRAST CLINICAL INFORMATION: Headaches. COMPARISON: CT scan of the head 12/01/2012. TECHNIQUE: Contiguous axial imaging was performed from the skull base to vertex without intravenous administration of contrast. Coronal and sagittal reformatted images were generated at the technologist workstation. This CT examination was performed using dose optimization techniques as appropriate, variously including the following: *Automated exposure control *Adjustment of mA and/or kV according to patient size (this includes techniques or standardized protocols for targeted exams where dose is matched to indication/reason for exam; i.e. extremities or head) *Use of iterative reconstruction technique DLP: 711 mGy-cm FINDINGS: There is no evidence of acute intracranial hemorrhage or territorial infarction. No abnormal mass effect or midline shift is seen. [place] to white matter differentiation is well preserved. No extra-axial fluid collections are identified. The ventricles are normal in size. There is no abnormal attenuation within the brain parenchyma. There are no acute osseous findings. There are degenerative changes in the upper cervical spine. There is a prominent arachnoid granulation on the left in the region of the torcula, demonstrated on prior imaging. The soft tissues are unremarkable. The mastoid air cells and paranasal sinuses are well-aerated. The nasal septum is deviated to the left and there is a left-sided bony nasal septal spur. CT/CT head/brain wo con IMPRESSION: 1. There are no acute bleeds or territorial infarcts. No masses are demonstrated. The paranasal sinuses and mastoid air cells are well-aerated.
== END 2022-03-28 11:05 | disposition home or self-care (01) ==
LOC: HO.CT 11:04
PROVIDERS: PCP Nurse Practitioner Primary Care; Visit Provider Nurse Practitioner Primary Care
DX: G44.89 Other headache syndrome (principal)
CPT/HCPCS: 70450

== ENCOUNTER 2022-05-08 09:45 | Outpatient (REF) | payer OTHER, SELFPAY ==
--- NOTE | ~2022-05-08 | XR_ITS ---
EXAMINATION: RIGHT HIP AND BILATERAL HAND. CLINICAL INFORMATION: Pain. COMPARISON: None. TECHNIQUE: Right hip 2 views. 3 views each hand. FINDINGS: RIGHT HIP: AP and frog-leg views of the right hip reveal no visible fracture, dislocation or subluxation seen. RIGHT HAND: There is mild loss of PIP and DIP joint space without periarticular spurring. The soft tissues are normal. The MCP joint space is maintained normal. The soft tissues are normal. LEFT HAND: The PIP, DIP and MCP joint space is normal. No bony erosive changes, no periarticular spurring or soft tissue swelling. No acute fracture. XR/XR hand RT min 3V IMPRESSION: Unremarkable right hip and bilateral hand exam.
--- NOTE | ~2022-05-08 | XR_ITS ---
EXAMINATION: RIGHT HIP AND BILATERAL HAND. CLINICAL INFORMATION: Pain. COMPARISON: None. TECHNIQUE: Right hip 2 views. 3 views each hand. FINDINGS: RIGHT HIP: AP and frog-leg views of the right hip reveal no visible fracture, dislocation or subluxation seen. RIGHT HAND: There is mild loss of PIP and DIP joint space without periarticular spurring. The soft tissues are normal. The MCP joint space is maintained normal. The soft tissues are normal. LEFT HAND: The PIP, DIP and MCP joint space is normal. No bony erosive changes, no periarticular spurring or soft tissue swelling. No acute fracture. XR/XR hand LT min 3V IMPRESSION: Unremarkable right hip and bilateral hand exam.
--- NOTE | ~2022-05-08 | XR_ITS ---
EXAMINATION: RIGHT HIP AND BILATERAL HAND. CLINICAL INFORMATION: Pain. COMPARISON: None. TECHNIQUE: Right hip 2 views. 3 views each hand. FINDINGS: RIGHT HIP: AP and frog-leg views of the right hip reveal no visible fracture, dislocation or subluxation seen. RIGHT HAND: There is mild loss of PIP and DIP joint space without periarticular spurring. The soft tissues are normal. The MCP joint space is maintained normal. The soft tissues are normal. LEFT HAND: The PIP, DIP and MCP joint space is normal. No bony erosive changes, no periarticular spurring or soft tissue swelling. No acute fracture. XR/XR hip RT min 2V IMPRESSION: Unremarkable right hip and bilateral hand exam.
== END 2022-05-08 09:46 | disposition home or self-care (01) ==
LOC: HO.XRAY 09:45
PROVIDERS: PCP Nurse Practitioner Primary Care; Visit Provider Nurse Practitioner Primary Care
DX: M25.551 Pain in right hip (principal); M79.641 Pain in right hand; M79.642 Pain in left hand
CPT/HCPCS: 73130; 73502

== ENCOUNTER 2022-05-24 10:27 | Outpatient (REF) | payer OTHER, SELFPAY ==
--- NOTE | ~2022-05-24 | XR_ITS ---
EXAMINATION: XR KNEE, RIGHT XR KNEE, LEFT XR KNEE STANDING, BILATERAL CLINICAL INFORMATION: Golfball sized bump on the right patella. COMPARISON: None TECHNIQUE: AP bilateral knee 1 view. 3 views each knee. FINDINGS: BILATERAL KNEE: There is a maintained medial and lateral compartment joint space in both knees. No bony erosive changes. No fracture. The soft tissues are normal. LEFT KNEE: The tricompartment joint space is preserved. There is small anterior superior patellar enthesophyte. No bony erosive changes. No acute fractures seen. RIGHT KNEE: There is a 5.6 cm soft tissue lesion anterior to right anterior tibial prominence likely hematoma or subcutaneous nodule. The tricompartment joint space is preserved. No visible acute fracture or dislocation seen. There is a tiny spur along the anterior superior patella. There is no abnormal joint effusion. XR/XR knee LT 4V IMPRESSION: Soft tissue nodule anterior to the anterior tibial prominence right knee likely subcutaneous hematoma or soft tissue nodule. There is no fracture involving the right knee. No joint effusion. Unremarkable left knee. Unremarkable AP bilateral knee standing exam.
--- NOTE | ~2022-05-24 | XR_ITS ---
EXAMINATION: XR KNEE, RIGHT XR KNEE, LEFT XR KNEE STANDING, BILATERAL CLINICAL INFORMATION: Golfball sized bump on the right patella. COMPARISON: None TECHNIQUE: AP bilateral knee 1 view. 3 views each knee. FINDINGS: BILATERAL KNEE: There is a maintained medial and lateral compartment joint space in both knees. No bony erosive changes. No fracture. The soft tissues are normal. LEFT KNEE: The tricompartment joint space is preserved. There is small anterior superior patellar enthesophyte. No bony erosive changes. No acute fractures seen. RIGHT KNEE: There is a 5.6 cm soft tissue lesion anterior to right anterior tibial prominence likely hematoma or subcutaneous nodule. The tricompartment joint space is preserved. No visible acute fracture or dislocation seen. There is a tiny spur along the anterior superior patella. There is no abnormal joint effusion. XR/XR knee RT 4V IMPRESSION: Soft tissue nodule anterior to the anterior tibial prominence right knee likely subcutaneous hematoma or soft tissue nodule. There is no fracture involving the right knee. No joint effusion. Unremarkable left knee. Unremarkable AP bilateral knee standing exam.
== END 2022-05-24 10:28 | disposition home or self-care (01) ==
LOC: HO.XRAY 10:27
PROVIDERS: Absent Provider Nurse Practitioner Primary Care; PCP Nurse Practitioner Primary Care; Visit Provider Internal Medicine
DX: M25.461 Effusion, right knee (principal); M25.462 Effusion, left knee
CPT/HCPCS: 73564

== ENCOUNTER 2022-07-02 11:51 | Outpatient (REF) | payer OTHER, SELFPAY ==
[2022-07-02 13:16] LABS: MANUAL DIFF FLAG NO
[2022-07-02 13:36] LABS: Basophils Percent Auto 0.7 % (0-2); Eosinophils Percent Auto 0.6 % (0-4); Hematocrit 40.5 % (42.0-52.0); Hemoglobin 13.1 g/dl (14.0-18.0); Imm Gran Abs Auto 0.01 X10*3/uL (0.00-0.03); Imm Gran Pct Auto 0.2 % (0.0-0.4); Lymphocytes Absolute Auto 1.2 X10*3/uL (1.2-4.9); Lymphocytes Percent Auto 23.1 % (20-40); Mean Corpuscular HGB Conc 32.3 g/dl (31.0-36.0); Mean Corpuscular Hemoglobin 28.4 pg (27.0-33.0); Mean Corpuscular Volume 87.7 fL (80.0-98.0); Mean Platelet Volume 11.9 fL (9.4-12.4); Monocytes Absolute Auto 0.3 X10*3/uL (0.1-1.2); Monocytes Percent Auto 6.3 % (2-11); Neutrophils Absolute Auto 3.7 x10*3/uL (2.0-8.3); Neutrophils Percent Auto 69.1 % (45-73); Platelet Count 249 X10*3/uL (160-400); Red Blood Count 4.62 X10*6/uL (4.60-5.80); Red Cell Distribution Width 13.2 % (11.0-16.0); White Blood Count 5.4 X10*3/uL (4.8-10.8)
[2022-07-02 13:38] LABS: Alanine Aminotransferase 42 U/L (0-40); Albumin Level 4.4 g/dL (3.5-5.0); Alkaline Phosphatase 136 U/L (39-117); Anion Gap 14 (12-20); Aspartate Amino Transferase 34 U/L (5-37); Bilirubin Total 0.9 mg/dL (0.0-1.0); Blood Urea Nitrogen 17 mg/dL (9-16); C Reactive Protein 0.04 mg/dL (< or = 0.50); Calcium 9.5 mg/dL (8.4-10.2); Carbon Dioxide 32 mmol/L (22-29); Chloride 101 mmol/L (96-108); Estimated Glomerular Filt Rate > 60; Glucose Random 94 mg/dL (60-115); Iron 105 mcg/dL (45-160); Percent Iron Saturation 30 % (15-50); Potassium 4.1 mmol/L (3.3-5.1); Sodium 143 mmol/L (135-145); Total Iron Binding Capacity 355 mcg/dL (228-428); Total Protein 7.6 g/dL (6.5-8.0); Unsaturated Iron Binding 250 ug/dL; Uric Acid 5.5 mg/dL (3.4-7.0)
[2022-07-02 13:47] LABS: Rheumatoid Factor < 15.0 IU/mL (<15.0)
[2022-07-02 13:54] LABS: Protein/Creatinine Ratio, Ur 0.28 (<0.2); Total Protein Urine Random 144 mg/dL (<12)
[2022-07-02 13:58] LABS: Ferritin 58 ng/mL (20-250); Thyroid Stimulating Hormone 1.19 uIU/mL (0.32-4.0)
[2022-07-02 14:22] LABS: Erythrocyte Sedimentation Rate 5 MM/HR (0-15)
[2022-07-02 15:03] LABS: Appearance Urine Cloudy; Color Urine Dark Yellow; Glucose Urine UA Negative (Negative); Leukocyte Esterase Urine Negative (Negative); Nitrite Urine Negative (Negative); PH 5.5 (5.0-8.0); Specific Gravity - Urine >= 1.030 (1.005-1.025); Urine Blood Negative (Negative); Urine Ketones Trace mg/dL (Negative); Urine Protein 300 (3+) mg/dL (Neg-Trace)
[2022-07-02 15:20] LABS: Bacteria Urine None Seen (None Seen); Calcium Oxalate Crystals Urine Present; Hyaline Casts Urine >20 /LPF (0-2); RBC Urine 0-2 /HPF (0-2); WBC Urine 0-5 /HPF (0-5)
[2022-07-03 04:38] LABS: HBc Num1 0.13 S/CO (0.00-0.79); HBsAGNum1 0.24 S/CO (0.00-0.99); Hepatitis A Antibody IgM 0.24 Index (0-0.79); Hepatitis B Core Antibody Nonreactive (Nonreactive); Hepatitis B Surface Antigen Negative (Negative); ~HepC Num1 0.05 S/CO (0.00-0.79); ~Hepatitis A Antibody IgM Nonreactive (Nonreactive); ~Hepatitis B Surface Antibody NONREACTIVE (Nonreactive); ~Hepatitis C Antibody Nonreactive (Nonreactive)
[2022-07-04 14:46] LABS: IgA 632 mg/dL (47-310); IgG 1209 mg/dL (600-1640); IgM 52 mg/dL (50-300); Transferrin 271 mg/dL (188-341)
[2022-07-04 16:12] LABS: Cyclic Citrullinated Peptide <16 UNITS
[2022-07-04 21:26] LABS: PES - Abn Protein Band 1 0.4 g/dL (NONE DETECTED); Prot Elec - Albumin 4.2 g/dL (3.8-4.8); Prot Elec - Alpha1 0.3 g/dL (0.2-0.3); Prot Elec - Alpha2 0.6 g/dL (0.5-0.9); Prot Elec - Beta 1 0.5 g/dL (0.4-0.6); Prot Elec - Beta 2 0.6 g/dL (0.2-0.5); Prot Elec - Gamma 1.1 g/dL (0.8-1.7); Prot Elec - Total Protein 7.3 g/dL (6.1-8.1)
[2022-07-05 16:52] LABS: HCV Log PCR <1.18 NOT DETECTED Log IU/mL (NOT DETECTED); HepC Viral Load <15 NOT DETECTED IU/mL (NOT DETECTED)
== END 2022-07-02 11:52 | disposition home or self-care (01) ==
LOC: HO.10HDL 11:51
PROVIDERS: Visit Provider Student in an Organized Health Care Education/Training Program
DX: M25.50 Pain in unspecified joint (principal); R53.83 Other fatigue; R63.4 Abnormal weight loss; M79.9 Soft tissue disorder, unspecified
CPT/HCPCS: 20610; 36415; 80053; 81001; 82728; 82784; 83540; 84156; 84165; 84443; 84466; 84550; 85025; 85652; 86140; 86200; 86334; 86431; 86704; 86706; 86709; 86803; 87340; 87522; 99202

== ENCOUNTER 2022-07-21 23:18 | Emergency (ER) | payer OTHER, SELFPAY ==
[2022-07-21 23:27] VITALS: BP 156/61; PULSE 57; RESP 18; TEMP 37.2; O2SAT 99; BMI 22.9
[2022-07-22 00:02] VITALS: BP 152/83; PULSE 99; RESP 18; TEMP 37.1; O2SAT 100
[2022-07-22] MEDS: oxyCODONE HCl Immed Release 5 MG TABLET 10 MG PO (00:24)
--- NOTE | 2022-07-22 01:08 | ED_ITS ---
HPI - Extremity Problem General Chief complaint: Extremity Problem Stated complaint: Torn ligaments in shoulders. Pain Time Seen by Provider: 07/21/22 23:31 Source: patient Mode of arrival: ambulatory Limitations: no limitations History of Present Illness HPI Narrative: Patient rheumatoid arthritis followed by conductor sleeping car also has bilateral shoulder pain for a while seen by a conductor sleeping car 2 weeks ago was started on prednisone for rheumatoid arthritis now he comes as still has pain in the bilateral shoulder no recent trauma no paresthesia no weakness pain in the shoulders going on for long time as he used to lift heavy stuff at work Related Data Home Medications Medication Instructions Recorded Confirmed atenolol 100 mg tablet 100 mg PO DAILY 09/08/20 09/18/20 atorvastatin 20 mg tablet 20 mg PO DAILY 09/08/20 09/18/20 gabapentin 300 mg capsule 300 mg PO DAILY 09/08/20 09/18/20 nifedipine 30 mg tablet,extended 30 mg PO DAILY 09/08/20 09/18/20 release chlorthalidone 25 mg tablet 25 mg PO DAILY 07/02/22 cholecalciferol (vitamin D3) 50 50 mcg PO DAILY 07/02/22 mcg (2,000 unit) tablet diclofenac sodium 1 % topical gel 1 ea topical QID 07/02/22 duloxetine 20 mg capsule,delayed 20 mg PO DAILY 07/02/22 release [id number]-gqblv acid 0.4 1 tab PO DAILY 07/02/22 mg-lycopene 300 mcg-lutein 250 mcg tablet (Cerovite Senior) nifedipine 90 mg tablet,extended 90 mg PO DAILY 07/02/22 release 24 hr Previous Rx's Medication Instructions Recorded oxycodone-acetaminophen 5 mg-325 1 tab PO TID PRN pain #9 tabs 06/17/21 mg tablet (Percocet) docusate sodium 100 mg capsule 100 mg PO DAILY PRN constipation 01/25/22 #30 caps hydrocodone 5 mg-acetaminophen 325 1 tab PO Q6H PRN pain #12 tabs 01/25/22 mg tablet hydrocortisone 2.5 % topical cream 1 appl [place] DAILY PRN hemorrhoids 01/25/22 with perineal applicator #30 grams (Procto-Med HC) diclofenac epolamine 1.3 % 1 patch topical BID #30 ea 07/22/22 transdermal 12 hour patch Allergies Allergy/AdvReac Type Severity Reaction Status Date / Time NSAIDS (Non-Steroidal Allergy Mild RASH Verified 07/02/22 10:31 Anti-Inflamma [Nsaids] Penicillins Allergy Mild RASH Verified 07/02/22 10:31 cyclobenzaprine Allergy Unknown UNKNOWN Verified 07/02/22 10:31 [CYCLOBENZAPRINE] ibuprofen Allergy Unknown GI upset, Verified 07/02/22 10:31 STOMACH PAIN AND VOMITING lisinopril [LISINOPRIL] Allergy Unknown UNKNOWN, Verified 07/02/22 10:31 swelling, rash, SEVERE LEG EDEMA naproxen Allergy Unknown Unknown Verified 07/02/22 10:31 penicillin V Allergy Unknown rash Verified 07/02/22 10:31 tramadol [From ULTRAM] Allergy Unknown SEIZURES Verified 07/02/22 10:31 Motrin Allergy Unknown STOMACH Uncoded 07/02/22 10:31 PAIN AND VOMITING Review of Systems Review of Systems: Yes all other systems are reviewed and are negative [facility] Past Medical History Medical History Closed right ankle fracture Depression Dyslipidemia Fatigue Hypertension Injury of left ankle Lumbar spinal stenosis Polyarthralgia Soft tissue lesion of knee region Weight loss Surgical History History of surgery on lower extremity Hx of hernia repair Status post insertion of spinal cord stimulator Family History Family History Mother Fibromyalgia Arthritis Hypertension Father Medical history unknown Social History Social History Household Members: Significant Other Alcohol intake: never Patient Tobacco Use Status: Never used Tobacco Advance Directives: No Current occupational status: unemployed 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 Oriented X3. No acute distress. Neck: Normal inspection. Neck supple. CVS: Normal heart rate and rhythm. Pulses normal. Respiratory: No respiratory distress. Equal air entry bilateral, Abdomen: Soft and nontender. Bowel sounds are present, Skin: Skin warm and dry. Normal skin color. Normal skin turgor. Extremities: No lower extremity edema. No calf tenderness bilateral rotator cuff tenderness open excellent positive bilateral good IR and ER movements without significant pain neurovascular intact Neuro: Oriented X 3. No motor deficit. MDM - Extremity (Nontraumatic) MDM Narrative Medical decision making narrative: Patient has chronic bilateral rotator cuff tendinitis with rheumatoid arthritis already has pain medications at home will discharge patient home on diclofenac sodium patch is advised to follow with bryologist Discharge Plan Discharge Clinical Impression: Rotator cuff syndrome Patient Disposition: Home, Self-Care Instructions: Rotator Cuff Tendinitis (ED) Additional Instructions: Continue pain medication as prescribed by your conductor sleeping car Apply diclofenac patch twice daily on shoulder Prescriptions: New diclofenac epolamine 1.3 % patch 12 hour 1 patch topical BID Qty: 30 0RF No Action oxycodone-acetaminophen [Percocet] 5-325 mg tablet 1 tab PO TID PRN (Reason: pain) Qty: 9 0RF Rx Instructions: side effect is drowssiness. Do not take at home or while driving. hydrocodone-acetaminophen 5-325 mg tablet 1 tab PO Q6H PRN (Reason: pain) Qty: 12 0RF hydrocortisone [Procto-Med HC] 2.5 % cream with perineal applicator 1 appl [place] DAILY PRN (Reason: hemorrhoids) Qty: 30 0RF docusate sodium 100 mg capsule 100 mg PO DAILY PRN (Reason: constipation) Qty: 30 0RF atenolol 100 mg tablet 100 mg PO DAILY nifedipine 30 mg tablet extended release 30 mg PO DAILY gabapentin 300 mg capsule 300 mg PO DAILY atorvastatin 20 mg tablet 20 mg PO DAILY cholecalciferol (vitamin D3) 50 mcg (2,000 unit) tablet 50 mcg PO DAILY Cerovite Senior 0.4 mg-300 mcg- 250 mcg tablet 1 tab PO DAILY diclofenac sodium 1 % gel 1 ea topical QID chlorthalidone 25 mg tablet 25 mg PO DAILY duloxetine 20 mg capsule,delayed release(DR/EC) 20 mg PO DAILY nifedipine 90 mg tablet extended release 24hr 90 mg PO DAILY Interventions: ED Discharge Assessment Last Done: 07/22/22 00:26 Discharge Date/Time: 07/22/22 00:33
== END 2022-07-22 00:33 | disposition home or self-care (01) ==
PROVIDERS: Emergency Provider Internal Medicine; PCP Nurse Practitioner Primary Care
DX: M75.102 Unspecified rotator cuff tear or rupture of left shoulder, not specified as traumatic (principal); M75.101 Unspecified rotator cuff tear or rupture of right shoulder, not specified as traumatic; M06.9 Rheumatoid arthritis, unspecified
CPT/HCPCS: 99283

== ENCOUNTER → 2022-07-31 10:39 | Outpatient (BNVA) | payer OTHER, SELFPAY | PROVIDERS: PCP Nurse Practitioner Primary Care; Visit Provider Student in an Organized Health Care Education/Training Program | DX: M15.9 Polyosteoarthritis, unspecified (principal); M12.811 Other specific arthropathies, not elsewhere classified, right shoulder; M12.812 Other specific arthropathies, not elsewhere classified, left shoulder; D47.2 Monoclonal gammopathy | CPT/HCPCS: 99212 ==

== ENCOUNTER 2022-08-12 10:28 | Outpatient (RCR) | payer OTHER, SELFPAY ==
--- NOTE | 2022-08-12 12:12 | MHC.PT.EP ---
[facility] [place] [facility] [place] [facility] [place] [facility] [address] [phone] F: [phone] F: [phone] F: [phone] F: [phone] Physical Therapy Plan of Care Date of Evaluation: Date of Surgery: N/A Diagnosis: other specific arthropathies, not elsewhere classified, unspecified shoulder Rotator cuff arthropathy Assessment: Pt is a pleasant 56yo M who presents to PT with chronic shoulder pain B. He presents to PT with current impairments in pain, decreased ROM, decreased strength, soft tissue restrictions, and impaired posture. He is limited functionally by lifting, reaching, carrying groceries, overhead ADLs, and sleeping. He is a good candidate for skilled PT in order to address current impairments to facilitate return to PLOF. He will be seen 2x/week for 4 weeks and will be reassessed at that time. Frequency and Duration: The patient will be seen 2x/week for 4 weeks Short Term Goals: Pt will be I with HEP to promote self management of symptoms Pt will improve B shoulder flexion by at least 10 deg ea Hog Scalder Goals: Pt will demonstrate ROM and strength WFL throughout B shoulders to assist with overhead ADLs Pt will demonstrate ability to lift 5# object to eye level with minimal to no compensation to assist with daily functional tasks Pt will demonstrate improvements in function as evidenced by statistically significant improvement in SPADI outcome measure Treatment Plan: Modalities to reduce pain, spasms and effusion. Manual therapy to restore motion and function. Therapeutic exercise to improve strength and flexibility. Neuromuscular re-education for posture and balance. Therapeutic activities to return to functional activities of daily living. Electronically signed by: Catrachita Chow, PT, DPT Please sign and return to therapist. Thank you for your referral.
--- NOTE | 2022-08-27 13:38 | MHC.PT.DC ---
[facility] [place] [facility] [place] [facility] [place] [facility] [address] [phone] F: [phone] F: [phone] F: [phone] F: [phone] Physical Therapy Discharge Report Diagnosis: other specific arthropathies, not elsewhere classified, unspecified shoulder Rotator cuff arthropathy Date of Surgery: N/A Date of Evaluation: 08/12/22 Date of Discharge: 08/27/22 Treatments to Date: 1 Cancellations to Date: No Shows to Date: 3 Discharge Status: Visit Non-compliance Discharge Summary: Pt was evaluated for PT on 08/12/22. He has had 3 no-shows since initial PT evaluation. Pt is being D/C from skilled PT per [facility] attendance policy and visit non-compliance. Pt current level of function unknown at this time. Electronically signed by: Catrachita Chow, PT, DPT Please sign and return to therapist. Thank you for your referral.
== END 2022-08-27 13:36 | disposition home or self-care (01) ==
LOC: HO.PT 10:28
PROVIDERS: PCP Nurse Practitioner Primary Care; Visit Provider Student in an Organized Health Care Education/Training Program
DX: M12.812 Other specific arthropathies, not elsewhere classified, left shoulder (principal); M12.811 Other specific arthropathies, not elsewhere classified, right shoulder
CPT/HCPCS: 97162

== ENCOUNTER 2022-08-12 11:57 | Outpatient (REF) | payer OTHER, SELFPAY ==
--- NOTE | ~2022-08-12 | XR_ITS ---
EXAMINATION: XR SHOULDER, LEFT CLINICAL INFORMATION: Pain COMPARISON: None TECHNIQUE: Four views of the left shoulder. FINDINGS: No acute fracture or dislocation. Mild osteoarthritis of the shoulder involving the acromioclavicular and glenohumeral joints. Soft tissues are unremarkable. XR/XR shoulder LT min 2V IMPRESSION: Mild osteoarthritis of the shoulder.
--- NOTE | ~2022-08-12 | XR_ITS ---
EXAMINATION: XR SHOULDER, RIGHT CLINICAL INFORMATION: Pain COMPARISON: Shoulder radiographs 04/28/2016 TECHNIQUE: Four views of the right shoulder. FINDINGS: No acute fracture or dislocation. Moderate osteoarthritis predominantly involving the acromioclavicular joint progressed from prior. Soft tissues are unremarkable. Partially imaged spinal cord stimulator device lead. XR/XR shoulder RT min 2V IMPRESSION: Moderate osteoarthritis predominantly involving the acromioclavicular joint progressed from prior.
== END 2022-08-12 11:58 | disposition home or self-care (01) ==
LOC: HO.XRAY 11:57
PROVIDERS: PCP Nurse Practitioner Primary Care; Visit Provider Student in an Organized Health Care Education/Training Program
DX: M25.511 Pain in right shoulder (principal); M25.512 Pain in left shoulder
CPT/HCPCS: 73030

== ENCOUNTER 2022-09-16 08:57 | Outpatient (REF) | payer OTHER, SELFPAY ==
--- NOTE | ~2022-09-16 | US_ITS ---
EXAMINATION: US ABDOMEN COMPLETE CLINICAL INFORMATION: Elevated LFTs. COMPARISON: CT abdomen and pelvis with contrast 12/25/2013. TECHNIQUE: Real-time imaging of the abdominal viscera. FINDINGS: PANCREAS: Normal. ABDOMINAL AORTA: The proximal, mid, and distal segments are normal in caliber. INFERIOR VENA CAVA: Visualized portions are normal. LIVER: Normal. The liver is normal in size. The liver contour is normal. Parenchymal echogenicity is normal. No focal hepatic lesion. There is no intrahepatic biliary duct dilatation seen. GALLBLADDER: Normal. The gallbladder is physiologically distended without evidence of stones, sludge, polyps, wall thickening or pericholecystic fluid. COMMON BILE DUCT: Normal in caliber measuring 0.1 cm in diameter. RIGHT KIDNEY: There is a 9 mm cyst in the lower pole. No hydronephrosis or renal calculi. The kidney measures 10.0 cm in maximum dimension. LEFT KIDNEY: There is a 7 mm cyst in the lower pole. This is slightly complex with single thin septation. No hydronephrosis or renal calculi. The kidney measures 11.1 cm in maximum dimension. SPLEEN: Normal. The spleen measures 8.7 cm in maximum dimension. FREE FLUID: None. US/US abdomen complete IMPRESSION: Small bilateral renal cysts. Otherwise unremarkable exam.
== END 2022-09-16 08:58 | disposition home or self-care (01) ==
LOC: HO.US 08:57
PROVIDERS: Visit Provider Nurse Practitioner Primary Care
DX: R79.89 Other specified abnormal findings of blood chemistry (principal)
CPT/HCPCS: 76700

== ENCOUNTER → 2022-10-01 10:52 | Outpatient (BNVA) | payer OTHER, SELFPAY | PROVIDERS: PCP Nurse Practitioner Primary Care; Referring Provider Nurse Practitioner Primary Care; Visit Provider Student in an Organized Health Care Education/Training Program | DX: M15.9 Polyosteoarthritis, unspecified (principal); D47.2 Monoclonal gammopathy; M12.811 Other specific arthropathies, not elsewhere classified, right shoulder; M12.812 Other specific arthropathies, not elsewhere classified, left shoulder; M70.41 Prepatellar bursitis, right knee; M70.40 Prepatellar bursitis, unspecified knee | CPT/HCPCS: 99212 ==

== ENCOUNTER 2022-11-24 22:34 | Emergency (ER) | payer OTHER, SELFPAY ==
--- NOTE | ~2022-11-24 | CT_ITS ---
EXAMINATION: CT ABDOMEN AND PELVIS WITHOUT CONTRAST CLINICAL INFORMATION: Left flank pain. COMPARISON: Abdominal ultrasound 09/16/2022. CT abdomen/pelvis 12/25/2013. TECHNIQUE: Multidetector volumetric imaging was performed from the superior aspect of the liver through the pubic symphysis. Sagittal and coronal reformatted images were obtained on the technologist's workstation. This CT examination was performed using dose optimization techniques as appropriate, variously including the following: *Automated exposure control *Adjustment of mA and/or kV according to patient size (this includes techniques or standardized protocols for targeted exams where dose is matched to indication/reason for exam; i.e. extremities or head) *Use of iterative reconstruction technique DLP: 402 mGy-cm FINDINGS: The lack of intravenous contrast limits evaluation of the solid visceral organs including the liver, spleen, pancreas, and kidneys. LUNG BASES: Stable 3 mm pleural-based nodule in the left lung base (4:74). No focal consolidation or pleural effusion. LIVER, GALLBLADDER, AND BILIARY TREE: The liver is normal in size, shape, and attenuation. No focal hepatic lesion or biliary ductal dilatation is present. The gallbladder is unremarkable with no evidence of radiopaque gallstones, gallbladder wall thickening, or obvious pericholecystic inflammatory changes. PANCREAS: Unremarkable. SPLEEN: Unremarkable. ADRENAL GLANDS: Unremarkable. KIDNEYS AND URETERS: The kidneys are normal in size, shape, and attenuation. No hydronephrosis, hydroureter, or calculi seen. No perinephric stranding. BLADDER: Underdistended limiting assessment of wall thickening. No intraluminal calculi. No significant perivesical fat stranding. GASTROINTESTINAL TRACT: The stomach and the small bowel are nondilated. Normal appendix. No pericolonic inflammatory changes or evidence of bowel obstruction. Moderate degree of colonic stool content, predominantly in the right hemicolon. ABDOMINAL WALL: There is stimulator device projecting over the right gluteal region with lead extending into the posterior thoracic spinal canal, terminating outside of the [id number]. No significant hernia. LYMPH NODES: Evaluation is very limited due to paucity of abdominal/mesenteric fat and lack of IV contrast. No bulky lymphadenopathy. VASCULAR: Limited noncontrast examination. The abdominal aorta is of normal diameter. PELVIC VISCERA: Enlarged prostate. OSSEOUS STRUCTURES: No acute or aggressive appearing osseous abnormalities. Stable minimal retrolisthesis of L5 on S1 with associated disc height loss and vacuum disc phenomena. Unchanged nonspecific heterogeneity of the bone marrow, most noticeable in the sacrum. CT/CT abdomen pelvis wo IV con IMPRESSION: 1. No nephrolithiasis or hydronephrosis. 2. Moderate degree of colonic stool content suggesting constipation. 3. Enlarged prostate.
[2022-11-24 22:40] VITALS: BP 145/66; PULSE 67; RESP 18; TEMP 36.9; O2SAT 100; BMI 22.4
[2022-11-24 23:06] LABS: MANUAL DIFF FLAG NO
[2022-11-24 23:07] LABS: Basophils Percent Auto 0.6 % (0-2); Eosinophils Absolute Auto 0.1 X10*3/uL (0.0-0.4); Eosinophils Percent Auto 0.8 % (0-4); Hematocrit 35.9 % (42.0-52.0); Hemoglobin 11.5 g/dl (14.0-18.0); Imm Gran Abs Auto 0.01 X10*3/uL (0.00-0.03); Imm Gran Pct Auto 0.2 % (0.0-0.4); Lymphocytes Absolute Auto 1.9 X10*3/uL (1.2-4.9); Lymphocytes Percent Auto 28.1 % (20-40); Mean Corpuscular Hemoglobin 28.3 pg (27.0-33.0); Mean Corpuscular Volume 88.4 fL (80.0-98.0); Mean Platelet Volume 11.1 fL (9.4-12.4); Monocytes Absolute Auto 0.5 X10*3/uL (0.1-1.2); Monocytes Percent Auto 7.7 % (2-11); Neutrophils Absolute Auto 4.2 x10*3/uL (2.0-8.3); Neutrophils Percent Auto 62.6 % (45-73); Platelet Count 269 X10*3/uL (160-400); Red Blood Count 4.06 X10*6/uL (4.60-5.80); Red Cell Distribution Width 12.8 % (11.0-16.0); White Blood Count 6.6 X10*3/uL (4.8-10.8)
[2022-11-24 23:09] LABS: Appearance Urine Clear; Color Urine Dark Yellow; Glucose Urine UA Negative (Negative); Leukocyte Esterase Urine Negative (Negative); Nitrite Urine Negative (Negative); PH 5.5 (5.0-9.0); Specific Gravity - Urine >= 1.030 (1.005-1.025); UMIC TRIGGER UACC YES; Urine Blood Negative (Negative); Urine Ketones Trace mg/dL (Negative); Urine Protein 100 (2+) mg/dL (Neg-Trace)
[2022-11-24 23:24] LABS: Alanine Aminotransferase 33 U/L (0-40); Albumin Level 4.2 g/dL (3.5-5.0); Alkaline Phosphatase 112 U/L (39-117); Anion Gap 13 (12-20); Aspartate Amino Transferase 30 U/L (5-37); Bilirubin Total 0.4 mg/dL (0.0-1.0); Blood Urea Nitrogen 22 mg/dL (9-16); Calcium 9.3 mg/dL (8.4-10.2); Carbon Dioxide 29 mmol/L (22-29); Chloride 106 mmol/L (96-108); Creatinine Clr Calc Pharmacy 65.2; Estimated Glomerular Filt Rate 60; Glucose Random 98 mg/dL (60-115); Potassium 3.7 mmol/L (3.3-5.1); Sodium 144 mmol/L (135-145)
[2022-11-24 23:25] LABS: Bacteria Urine None Seen (None Seen); Calcium Oxalate Crystals Urine Present; RBC Urine 0-2 /HPF (0-2); WBC Urine 0-5 /HPF (0-5)
--- NOTE | 2022-11-24 23:27 | ED_ITS ---
HPI - Back Pain/Injury General Chief Complaint: Back Pain/Injury Stated Complaint: kidney issues Time Seen by Provider: 11/24/22 23:21 Source: patient Mode of arrival: ambulatory Limitations: no limitations History of Present Illness HPI Narrative: Patient with History of osteoarthritis no kidney issues in the past complaining of pain in the left flank area for last 3 days off and on no relation with position or breathing no urinary complaints no nausea or vomiting pain is sharp in nature comes and goes lasting for few minutes no fever or chills no hematuria no history of kidney stone the family Related Data Home Medications Medication Instructions Recorded Confirmed atenolol 100 mg tablet 100 mg PO DAILY 09/08/20 07/31/22 atorvastatin 20 mg tablet 20 mg PO DAILY 09/08/20 07/31/22 gabapentin 300 mg capsule 300 mg PO DAILY 09/08/20 07/31/22 nifedipine 30 mg tablet,extended 30 mg PO DAILY 09/08/20 07/31/22 release chlorthalidone 25 mg tablet 25 mg PO DAILY 07/02/22 07/31/22 cholecalciferol (vitamin D3) 50 50 mcg PO DAILY 07/02/22 07/31/22 mcg (2,000 unit) tablet diclofenac sodium 1 % topical gel 1 ea topical QID 07/02/22 07/31/22 duloxetine 20 mg capsule,delayed 20 mg PO DAILY 07/02/22 07/31/22 release [id number]-isi-tenwa acid 0.4 1 tab PO DAILY 07/02/22 07/31/22 mg-lycopene 300 mcg-lutein 250 mcg tablet (Cerovite Senior) nifedipine 90 mg tablet,extended 90 mg PO DAILY 07/02/22 07/31/22 release 24 hr Previous Rx's Medication Instructions Recorded oxycodone-acetaminophen 5 mg-325 1 tab PO TID PRN pain #9 tabs 06/17/21 mg tablet (Percocet) docusate sodium 100 mg capsule 100 mg PO DAILY PRN constipation 01/25/22 #30 caps hydrocodone 5 mg-acetaminophen 325 1 tab PO Q6H PRN pain #12 tabs 01/25/22 mg tablet hydrocortisone 2.5 % topical cream 1 appl [place] DAILY PRN hemorrhoids 01/25/22 with perineal applicator #30 grams (Procto-Med HC) diclofenac epolamine 1.3 % 1 patch topical BID #30 ea 07/22/22 transdermal 12 hour patch Allergies Allergy/AdvReac Type Severity Reaction Status Date / Time NSAIDS (Non-Steroidal Allergy Mild RASH Verified 11/24/22 22:45 Anti-Inflamma [Nsaids] Penicillins Allergy Mild RASH Verified 11/24/22 22:45 cyclobenzaprine Allergy Unknown UNKNOWN Verified 11/24/22 22:45 [CYCLOBENZAPRINE] ibuprofen Allergy Unknown GI upset, Verified 11/24/22 22:45 STOMACH PAIN AND VOMITING lisinopril [LISINOPRIL] Allergy Unknown UNKNOWN, Verified 11/24/22 22:45 swelling, rash, SEVERE LEG EDEMA naproxen Allergy Unknown Unknown Verified 11/24/22 22:45 penicillin V Allergy Unknown rash Verified 11/24/22 22:45 tramadol [From ULTRAM] Allergy Unknown SEIZURES Verified 11/24/22 22:45 Motrin Allergy Unknown STOMACH Uncoded 07/02/22 10:31 PAIN AND VOMITING Review of Systems Review of Systems: Yes all other systems are reviewed and are negative PMFSH Past Medical History Medical History Closed right ankle fracture Depression Dyslipidemia Fatigue Hypertension Injury of left ankle Lumbar spinal stenosis Soft tissue lesion of knee region Weight loss Surgical History History of surgery on lower extremity Hx of hernia repair Status post insertion of spinal cord stimulator Family History Family History Mother Fibromyalgia Arthritis Hypertension Father Medical history unknown Social History Social History Household Members: Significant Other Alcohol intake: never Patient Tobacco Use Status: Never used Tobacco Advance Directives: No Advance Directives Information Provided: Yes Current occupational status: unemployed 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 Oriented X3. No acute distress. ENT: Pharynx normal. Oral Mucosa moist Neck: Normal inspection. Neck supple. CVS: Normal heart rate and rhythm. Pulses normal. Respiratory: No respiratory distress. Equal air entry bilateral, no wheezing/rales/rhonchi Abdomen: Soft and nontender. Bowel sounds are present, no mass palpable, left CVA tenderness+ Skin: Skin warm and dry. Normal skin color. Normal skin turgor. Extremities: No lower extremity edema. No calf tenderness Neuro: Oriented X 3. No motor deficit. Medical Decision Making Medical Decision Making [facility] Narrative: Patient nonspecific left flank pain CT scan negative for any acute pathology kidneys are normal no hydronephrosis or cyst labs are stable pain is likely musculoskeletal nature discharge patient home on ibuprofen Lab Data [facility] Lab Attestation statement: I reviewed the patient's lab results. 11/24/22 22:58 11/24/22 22:58 Labs: Lab Results 11/24/22 11/24/22 11/24/22 Range/Units 22:58 22:58 22:58 WBC 6.6 (4.8-10.8) X10*3/uL RBC 4.06 L (4.60-5.80) X10*6/uL Hgb 11.5 L (14.0-18.0) g/dl Hct 35.9 L (42.0-52.0) % MCV 88.4 (80.0-98.0) fL MCH 28.3 (27.0-33.0) pg MCHC 32.0 (31.0-36.0) g/dl RDW 12.8 (11.0-16.0) % Plt Count 269 (160-400) X10*3/uL MPV 11.1 (9.4-12.4) fL Immature Gran % (Auto) 0.2 (0.0-0.4) % Neut % (Auto) 62.6 (45-73) % Lymph % (Auto) 28.1 (20-40) % [place] % (Auto) 7.7 (2-11) % Eos % (Auto) 0.8 (0-4) % Baso % (Auto) 0.6 (0-2) % Lymph # (Auto) 1.9 (1.2-4.9) X10*3/uL [place] # (Auto) 0.5 (0.1-1.2) X10*3/uL Eos # (Auto) 0.1 (0.0-0.4) X10*3/uL Baso # (Auto) 0.0 (0.0-0.2) X10*3/uL Abs Immat Gran (auto) 0.01 (0.00-0.03) X10*3/uL Absolute Neuts (auto) 4.2 (2.0-8.3) x10*3/uL Absolute Nucleated RBC 0.000 (0.0-0.012) X10*3/uL Nucleated RBC % (auto) 0.0 (0.0-0.2) /100WBC Sodium 144 (135-145) mmol/L Potassium 3.7 (3.3-5.1) mmol/L Chloride 106 (96-108) mmol/L Carbon Dioxide 29 (22-29) mmol/L Anion Gap 13 (12-20) BUN 22 H (9-16) mg/dL Creatinine 1.25 (0.5-1.4) mg/dL Estim Creat Clear Calc 65.2 Estimated GFR 60 Random Glucose 98 (60-115) mg/dL Calcium 9.3 (8.4-10.2) mg/dL Total Bilirubin 0.4 (0.0-1.0) mg/dL AST 30 (5-37) U/L ALT 33 (0-40) U/L Alkaline Phosphatase 112 (39-117) U/L Total Protein 7.0 (6.5-8.0) g/dL Albumin 4.2 (3.5-5.0) g/dL Urine Color Dark Yellow Urine Appearance Clear Urine pH 5.5 (5.0-9.0) Ur Specific [place] >= 1.030 H (1.005-1.025) Urine Protein 100 (2+) H (Neg-Trace) mg/dL Urine Glucose (UA) Negative (Negative) mg/dL Urine Ketones Trace (Negative) mg/dL Urine Blood Negative (Negative) Urine Nitrite Negative (Negative) Ur Leukocyte Esterase Negative (Negative) Urine RBC 0-2 (0-2) /HPF Urine WBC 0-5 (0-5) /HPF Ur Squamous Epith Cells 3-5 (0-2) /HPF Calcium Oxalate Crystal Present Urine Bacteria None Seen (None Seen) Hyaline Casts 6-10 (0-2) /LPF Discharge Plan Discharge Clinical Impression: Back ache Patient Disposition: Home, Self-Care Instructions: Acute Low Back Pain (ED) Additional Instructions: Cause of your flank pain is not very clear the kidneys are normal pain is likely musculoskeletal Take Tylenol for pain Drink plenty of fluids Prescriptions: No Action oxycodone-acetaminophen [Percocet] 5-325 mg tablet 1 tab PO TID PRN (Reason: pain) Qty: 9 0RF Rx Instructions: side effect is drowssiness. Do not take at home or while driving. hydrocodone-acetaminophen 5-325 mg tablet 1 tab PO Q6H PRN (Reason: pain) Qty: 12 0RF hydrocortisone [Procto-Med HC] 2.5 % cream with perineal applicator 1 appl [place] DAILY PRN (Reason: hemorrhoids) Qty: 30 0RF docusate sodium 100 mg capsule 100 mg PO DAILY PRN (Reason: constipation) Qty: 30 0RF diclofenac epolamine 1.3 % patch 12 hour 1 patch topical BID Qty: 30 0RF atenolol 100 mg tablet 100 mg PO DAILY nifedipine 30 mg tablet extended release 30 mg PO DAILY gabapentin 300 mg capsule 300 mg PO DAILY atorvastatin 20 mg tablet 20 mg PO DAILY cholecalciferol (vitamin D3) 50 mcg (2,000 unit) tablet 50 mcg PO DAILY Cerovite Senior 0.4 mg-300 mcg- 250 mcg tablet 1 tab PO DAILY diclofenac sodium 1 % gel 1 ea topical QID chlorthalidone 25 mg tablet 25 mg PO DAILY duloxetine 20 mg capsule,delayed release(DR/EC) 20 mg PO DAILY nifedipine 90 mg tablet extended release 24hr 90 mg PO DAILY
== END 2022-11-25 00:40 | disposition home or self-care (01) ==
PROVIDERS: Emergency Provider Internal Medicine; PCP Nurse Practitioner Primary Care
DX: M54.50 Low back pain, unspecified (principal); R10.9 Unspecified abdominal pain; Z79.899 Other long term (current) drug therapy
CPT/HCPCS: 36415; 74176; 80053; 81001; 85025; 99282; 99283

== ENCOUNTER 2022-12-15 00:47 | Emergency (ER) | payer OTHER, SELFPAY ==
[2022-12-15 00:51] VITALS: BP 138/88; PULSE 84; O2SAT 97
[2022-12-15 00:58] VITALS: BP 173/95; PULSE 80; RESP 16; O2SAT 100; BMI 21.2
--- NOTE | 2022-12-15 01:21 | ED_ITS ---
HPI - Back Pain/Injury General Chief Complaint: Back Pain/Injury Stated Complaint: Lower Back Pain Time Seen by Provider: 12/15/22 01:29 Source: patient Mode of arrival: ambulatory Limitations: no limitations History of Present Illness HPI Narrative: Patient comes emergency room complaining of bilateral lower back pain that has been there for months. Patient states that he has been seen here before. Patient complaining of bilateral lower back pain, states that the pain radiates up towards his bilateral scapular area. Patient denies urinary/fecal incontinence/retention. Patient had labs and a CT scan done earlier in November 2022. Labs unremarkable, CT scan unremarkable other than constipation. Patient states that he has good bowel movements, no abdominal pain. Patient states that his primary care physician has been trying to address his pain issue, recently started on gabapentin and amitriptyline Related Data Home Medications Medication Instructions Recorded Confirmed atenolol 100 mg tablet 100 mg PO DAILY 09/08/20 07/31/22 atorvastatin 20 mg tablet 20 mg PO DAILY 09/08/20 07/31/22 gabapentin 300 mg capsule 300 mg PO DAILY 09/08/20 07/31/22 nifedipine 30 mg tablet,extended 30 mg PO DAILY 09/08/20 07/31/22 release chlorthalidone 25 mg tablet 25 mg PO DAILY 07/02/22 07/31/22 cholecalciferol (vitamin D3) 50 50 mcg PO DAILY 07/02/22 07/31/22 mcg (2,000 unit) tablet diclofenac sodium 1 % topical gel 1 ea topical QID 07/02/22 07/31/22 duloxetine 20 mg capsule,delayed 20 mg PO DAILY 07/02/22 07/31/22 release wproaqyc-iyh-ggbnd acid 0.4 1 tab PO DAILY 07/02/22 07/31/22 mg-lycopene 300 mcg-lutein 250 mcg tablet (Cerovite Senior) nifedipine 90 mg tablet,extended 90 mg PO DAILY 07/02/22 07/31/22 release 24 hr Previous Rx's Medication Instructions Recorded oxycodone-acetaminophen 5 mg-325 1 tab PO TID PRN pain #9 tabs 06/17/21 mg tablet (Percocet) docusate sodium 100 mg capsule 100 mg PO DAILY PRN constipation 01/25/22 #30 caps hydrocodone 5 mg-acetaminophen 325 1 tab PO Q6H PRN pain #12 tabs 01/25/22 mg tablet hydrocortisone 2.5 % topical cream 1 appl VT DAILY PRN hemorrhoids 01/25/22 with perineal applicator #30 grams (Procto-Med ) diclofenac epolamine 1.3 % 1 patch topical BID #30 ea 07/22/22 transdermal 12 hour patch cyclobenzaprine 10 mg tablet 10 mg PO TID PRN muscle spasm #10 12/15/22 tabs Allergies Allergy/AdvReac Type Severity Reaction Status Date / Time NSAIDS (Non-Steroidal Allergy Mild RASH Verified 12/15/22 00:58 Anti-Inflamma [Nsaids] Penicillins Allergy Mild RASH Verified 12/15/22 00:58 cyclobenzaprine Allergy Unknown UNKNOWN Verified 12/15/22 00:58 [CYCLOBENZAPRINE] ibuprofen Allergy Unknown GI upset, Verified 12/15/22 00:58 STOMACH PAIN AND VOMITING lisinopril [LISINOPRIL] Allergy Unknown UNKNOWN, Verified 12/15/22 00:58 swelling, rash, SEVERE LEG EDEMA naproxen Allergy Unknown Unknown Verified 12/15/22 00:58 penicillin V Allergy Unknown rash Verified 12/15/22 00:58 tramadol [From ULTRAM] Allergy Unknown SEIZURES Verified 12/15/22 00:58 Motrin Allergy Unknown STOMACH Uncoded 12/15/22 00:58 PAIN AND VOMITING Review of Systems Review of Systems: Constitutional : No Weight loss, No Fever, No Chills, No Night Sweats, No Fatigue, No Malaise ENT/Mouth : No Hearing loss, No Ear Pain, No Nasal Congestion, No Sinus Pain, No Hoarseness, No sore throat, No Rhinorrhea, No Swallowing Difficulty Eyes: No Eye Pain, No Swelling, No Redness, No Foreign Body, No Discharge, No Vision Changes Cardiovascular : No Chest Pain, No SOB, No Dyspnea on Exertion, No Orthopnea, No Edema, No Palpitations Respiratory : No Cough, No Sputum, No Wheezing, No Smoke Exposure, No Dyspnea Gastrointestinal : No Nausea, No Vomiting, No Diarrhea, No Constipation, No abdominal Pain, No Hematochezia, No Melena Genitourinary : no irregular bleeding, No Dysuria, No Urinary Frequency, No Hematuria, No Urinary Incontinence, No Urgency, No Flank Pain, No Urinary Flow Changes, No Hesitancy Musculoskeletal : Complaining of bilateral lower back pain radiating towards the scapulas Skin : No Skin Lesions, No rash Neuro : No Weakness, No Numbness, No Paresthesias, No Loss of Consciousness, No Dizziness, No Headache Psych : No Anxiety/Panic, No Depression, No SI/HI/AH/VH, No Social Issues, Heme/Lymph: No Bruising, No Bleeding,No Lymphadenopathy Endocrine : No Polyuria, No Polydipsia, No Temperature Intolerance [facility] Past Medical History Medical History Closed right ankle fracture Depression Dyslipidemia Fatigue Hypertension Injury of left ankle Lumbar spinal stenosis Soft tissue lesion of knee region Weight loss Surgical History History of surgery on lower extremity Hx of hernia repair Status post insertion of spinal cord stimulator Family History Family History Mother Fibromyalgia Arthritis Hypertension Father Medical history unknown Social History Social History Household Members: Significant Other Alcohol intake: never Patient Tobacco Use Status: Never used Tobacco Advance Directives: No Advance Directives Information Provided: Yes Current occupational status: unemployed 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 Oriented X3. No acute distress. Eyes: Pupils equal, round and reactive to light. ENT: Pharynx normal. Neck: Normal inspection. Neck supple. No lymph nodes noted. No crepitus CVS: Normal heart rate and rhythm. Pulses normal. Normal S1 and S2 Respiratory: No respiratory distress. Breath sounds normal. No Wheezing. No rales Abdomen: Soft and nontender. No rigidity. No distention. Back: No C-spine/thoracic/lumbar pain on palpation, old scar in the lumbar region. Pain to palpation over the paraspinal muscles. Also, pain to palpation over the suprascapular area bilaterally Skin: Skin warm and dry. Normal skin color. Normal skin turgor. Extremities: No lower extremity edema. No Lacerations. No Rash Neuro: Oriented X 3. No motor deficit. No sensory deficit. Moving all extremities. No slurred speech. CN 2 through 12 grossly intact Psych: calm, cooperative, normal affect Course Course Course Narrative: -I discussed the physical exam with the patient. Patient likely having musculoskeletal pain. Urinalysis pending to rule out UTI. -at this time, labs and imaging are not indicated. -after asking several PHQ-9 questions to the patient, patient does have depression. Discussed with the patient that he would benefit from physical therapy to help with the pain. Patient is already being treated with amitriptyline, which was recently prescribed. Medications Administered Discontinued Medications Generic Name Dose Route Start Last Admin Trade Name Freq PRN Reason Stop Dose Admin Morphine Sulfate 2 mg 12/15/22 01:20 12/15/22 02:28 Morphine Sulfate 2 Mg/Ml Cartridge IM 12/15/22 01:21 2 mg ONCE ONE Administration Protocol Medical Decision Making Medical Decision Making [facility] Narrative: -urinalysis negative -pain likely musculoskeletal. -patient will follow-up with his primary care physician, will request physical therapy if possible -patient agreeable to take muscle relaxants, patient declined pain medication. Differential Diagnosis Differential Diagnoses: The differential diagnosis associated with the presentation includes (Pyelonephritis, musculoskeletal pain, fibromyalgia) Lab Data [facility] Lab Attestation statement: I reviewed the patient's lab results. Labs: Lab Results 12/15/22 Range/Units 02:23 Urine Color Yellow Urine Appearance Clear Urine pH 5.5 (5.0-9.0) Ur Specific [place] 1.025 (1.005-1.025) Urine Protein 30 (1+) H (Neg-Trace) mg/dL Urine Glucose (UA) Negative (Negative) mg/dL Urine Ketones Negative (Negative) mg/dL Urine Blood Negative (Negative) Urine Nitrite Negative (Negative) Ur Leukocyte Esterase Negative (Negative) Urine RBC 0-2 (0-2) /HPF Urine WBC 0-5 (0-5) /HPF Ur Squamous Epith Cells 0-2 (0-2) /HPF Urine Bacteria None Seen (None Seen) Hyaline Casts 0-2 (0-2) /LPF Discharge Plan Discharge Clinical Impression: Musculoskeletal back pain Patient Disposition: Home, Self-Care Instructions: Musculoskeletal Pain (ED) Additional Instructions: Please follow-up with your primary care physician tomorrow. If you have any worsening or new symptoms, please return to the emergency room or call 911 Prescriptions: New cyclobenzaprine 10 mg tablet 10 mg PO TID PRN (Reason: muscle spasm) Qty: 10 0RF No Action oxycodone-acetaminophen [Percocet] 5-325 mg tablet 1 tab PO TID PRN (Reason: pain) Qty: 9 0RF Rx Instructions: side effect is drowssiness. Do not take at home or while driving. hydrocodone-acetaminophen 5-325 mg tablet 1 tab PO Q6H PRN (Reason: pain) Qty: 12 0RF hydrocortisone [Procto-Med HC] 2.5 % cream with perineal applicator 1 appl VT DAILY PRN (Reason: hemorrhoids) Qty: 30 0RF docusate sodium 100 mg capsule 100 mg PO DAILY PRN (Reason: constipation) Qty: 30 0RF diclofenac epolamine 1.3 % patch 12 hour 1 patch topical BID Qty: 30 0RF atenolol 100 mg tablet 100 mg PO DAILY nifedipine 30 mg tablet extended release 30 mg PO DAILY gabapentin 300 mg capsule 300 mg PO DAILY atorvastatin 20 mg tablet 20 mg PO DAILY cholecalciferol (vitamin D3) 50 mcg (2,000 unit) tablet 50 mcg PO DAILY Cerovite Senior 0.4 mg-300 mcg- 250 mcg tablet 1 tab PO DAILY diclofenac sodium 1 % gel 1 ea topical QID chlorthalidone 25 mg tablet 25 mg PO DAILY duloxetine 20 mg capsule,delayed release(DR/EC) 20 mg PO DAILY nifedipine 90 mg tablet extended release 24hr 90 mg PO DAILY
[2022-12-15 02:19] VITALS: BP 153/73; PULSE 78; RESP 20; TEMP 36.9; O2SAT 99
[2022-12-15 02:28] VITALS: RESP 16
[2022-12-15] MEDS: Morphine Sulfate 2 MG/ML CARTRIDGE IM (02:28)
[2022-12-15 02:30] LABS: Appearance Urine Clear; Color Urine Yellow; Glucose Urine UA Negative (Negative); Leukocyte Esterase Urine Negative (Negative); Nitrite Urine Negative (Negative); PH 5.5 (5.0-9.0); Specific Gravity - Urine 1.025 (1.005-1.025); UMIC TRIGGER UACC YES; Urine Blood Negative (Negative); Urine Ketones Negative (Negative); Urine Protein 30 (1+) mg/dL (Neg-Trace)
[2022-12-15 02:32] LABS: Bacteria Urine None Seen (None Seen); Hyaline Casts Urine 0-2 /LPF (0-2); RBC Urine 0-2 /HPF (0-2); Squamous Epithelial Cell Urine 0-2 /HPF (0-2); WBC Urine 0-5 /HPF (0-5)
== END 2022-12-15 03:18 | disposition home or self-care (01) ==
PROVIDERS: Emergency Provider Emergency Medicine; PCP Nurse Practitioner Primary Care
DX: M54.50 Low back pain, unspecified (principal); R10.13 Epigastric pain; Z79.899 Other long term (current) drug therapy
CPT/HCPCS: 81001; 99284; J2270

== ENCOUNTER 2023-06-23 12:54 | Outpatient (REF) | payer OTHER, SELFPAY ==
[2023-06-23 16:46] LABS: Anion Gap 10 (12-20); Blood Urea Nitrogen 17 mg/dL (9-16); Calcium 9.1 mg/dL (8.4-10.2); Carbon Dioxide 32 mmol/L (22-29); Chloride 103 mmol/L (96-108); Cholesterol 161 mg/dL; Estimated Glomerular Filt Rate 55; Glucose Random 94 mg/dL (60-115); HDL Cholesterol 67 mg/dL; LDL Cholesterol Calculated 83 mg/dl; Potassium 3.3 mmol/L (3.3-5.1); Sodium 142 mmol/L (135-145); Triglycerides 56 mg/dL
[2023-06-23 17:06] LABS: Prostate Specific Antigen 1.37 ng/mL (<0.05-4.0)
[2023-06-23 20:35] LABS: Microalbum/Creatinine Ratio Ur 41.6 ug/mg cr
== END 2023-06-23 12:55 | disposition home or self-care (01) ==
LOC: HO.HHCL 12:54
PROVIDERS: Visit Provider Nurse Practitioner Primary Care
DX: Z00.00 Encounter for general adult medical examination without abnormal findings (principal); I10 Essential (primary) hypertension; N40.0 Benign prostatic hyperplasia without lower urinary tract symptoms; Z12.5 Encounter for screening for malignant neoplasm of prostate
CPT/HCPCS: 36415; 80048; 80061; 82043; 84153

== ENCOUNTER 2023-08-04 12:28 | Outpatient (REF) | payer OTHER, SELFPAY ==
--- NOTE | ~2023-08-04 | XR_ITS ---
EXAMINATION: XR HIP, LEFT CLINICAL INFORMATION: Left hip pain, atraumatic. Patient with osteoarthritis of multiple joints. Patient states his left hip gives out off and he was told he has rheumatoid arthritis. Has had pain for years. COMPARISON: None available. TECHNIQUE: Two views of the left hip. FINDINGS: Left hip joint alignment preserved. Mild degenerative changes along the acetabulum. Left hip joint space is preserved. Possible degenerative changes on very limited views of the left sacroiliac joint. XR/XR hip LT min 2V IMPRESSION: Mild degenerative changes left hip. Possible degenerative changes on very limited views of the left sacroiliac joint. Additional imaging with CT scan or MRI should be considered for better visualization as these modalities are much more sensitive for detection of fracture or other underlying pathology.
== END 2023-08-04 12:29 | disposition home or self-care (01) ==
LOC: HO.HHCX 12:28
PROVIDERS: Visit Provider Nurse Practitioner Primary Care
DX: M25.552 Pain in left hip (principal)
CPT/HCPCS: 73502

== ENCOUNTER 2023-08-28 15:03 | Outpatient (AMB) | payer OTHER, SELFPAY ==
[2023-08-28 15:04] VITALS: BMI 21.2
--- NOTE | 2023-08-28 15:04 | A.OFFVIS_ITS ---
Intake Vital Signs 08/28/23 15:04 Height 5 ft 10 in Weight 148 lb BMI 21.2 Intake Visit Reasons: New Prob - Left [place] Pain [place] [facility]: Justus is a 57 year old male who presents today for a new problem visit with complaints of left hip pain. Patient reports that he has had left hip pain ongoing for about 2 years now. He explains that he has not previous treatment. His pain is radiating from the hip down the leg. He was recently diagnosed with RA. He has pain all the time and is feeling weak, has taken multiple falls. He struggles most first thing in the morning while getting up. He has seen Dr. Boles who states My suspicion for an inflammatory arthritis or crystalline arthritis causing his prepatellar bursitis is very low. Allergies NSAIDS (Non-Steroidal Anti-Inflamma [Nsaids] Allergy (Mild, Verified 08/28/23 15:07) RASH Penicillins Allergy (Mild, Verified 08/28/23 15:07) RASH cyclobenzaprine [CYCLOBENZAPRINE] Allergy (Unknown, Verified 08/28/23 15:07) UNKNOWN ibuprofen Allergy (Unknown, Verified 08/28/23 15:07) GI upset, STOMACH PAIN AND VOMITING lisinopril [LISINOPRIL] Allergy (Unknown, Verified 08/28/23 15:07) UNKNOWN, swelling, rash, SEVERE LEG EDEMA naproxen Allergy (Unknown, Verified 08/28/23 15:07) Unknown penicillin V Allergy (Unknown, Verified 08/28/23 15:07) rash tramadol [From ULTRAM] Allergy (Unknown, Verified 08/28/23 15:07) SEIZURES Motrin Allergy (Unknown, Uncoded 08/28/23 15:07) STOMACH PAIN AND VOMITING HPI New Prob - Left [place] Pain [place] [facility] [place] [facility] [place]PI Details Justus is a 57 year old man who presents with complaints of left hip pain. He complains of pain with daily activity, worse with walking and at night. He says he has pain and difficulty laying on either side and has to sleep on his back at night. He says he has had pain for ~2 years now and feels this is limiting his daily activities. Along with constant pain he also reports feeling weakness and says he has fallen multiple times. He also complains of pain in both of his shoulders. He says he has difficulty with heavy lifting activities or with overhead activities. He is unable to take NSAIDs due to an allergy. He says he was recently diagnosed with RA by Dr. Boles, but was referred here. 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 Review of Systems Const All systems reviewed & are unremarkable except as noted in HPI and below Physical Exam Vital Signs: BMI result Body Mass Index 21.2 Const General: no acute distress, alert and awake Orientation/consciousness: patient oriented x3 HEENT Head: Yes normocephalic and Yes atraumatic Eyes EOM: EOMs intact bilaterally Resp Effort & Inspection: normal respiratory effort and able to speak in complete sentences Cardio Jugular venous distension: no JVD Skin General skin exam: turgor normal Rashes: no rashes Neuro General: patient oriented x3 Extrem Other: Left Hip: Psych Appearance: grossly normal Affect: normal affect Attitude: cooperative Results Reviewed Results Reviewed: I personally reviewed relevant radiographs. Unremarkable left hip Assessment & Plan Assessment & Plan (1) Bilateral hip bursitis: Code(s): M70.71 - Other bursitis of hip, right hip; M70.72 - Other bursitis of hip, left hip Plan: This is a 57 year old man with bilateral hip bursitis He has pain with daily activity, worse with prolonged ambulation and at night when lying on his side. He also has pain with heavy lifting and overhead activities. He has fallen twice recently due to his hip giving way and feels limited in his ADLs. He denies any prior treatment and is allergic to NSAIDs. I discussed his diagnosis and treatment options, his radiographs are unremarkable for hip OA. I suspect he has an underlying chronic inflammatory condition, and recommend he follow with his Environmental Protection Forester for this. No orthopedic intervention warranted. He should remain active as tolerated and can follow up prn. Plan Scribed for Alcon Reza MD by Eusebio Winn, medical illustrator, on 08/28/23 at 3:30 PM, EST. Coding Level of Care Code Est Pt Level 3 (75765) Diagnoses Bilateral hip bursitis M70.71; M70.72
== END 2023-08-28 15:36 | disposition home or self-care (01) ==
PROVIDERS: PCP Nurse Practitioner Primary Care; Visit Provider Orthopaedic Surgery
DX: M70.71 Other bursitis of hip, right hip (principal); M70.72 Other bursitis of hip, left hip
CPT/HCPCS: 99213

== ENCOUNTER → 2023-08-28 15:03 | Outpatient (BNVA) | payer OTHER, SELFPAY | PROVIDERS: PCP Nurse Practitioner Primary Care; Visit Provider Orthopaedic Surgery | DX: M70.72 Other bursitis of hip, left hip (principal); M70.71 Other bursitis of hip, right hip | CPT/HCPCS: 99212 ==

== ENCOUNTER 2023-09-18 15:50 | Outpatient (AMB) | payer OTHER, SELFPAY ==
[2023-09-18 15:52] VITALS: BP 160/100; PULSE 69; TEMP 36.2; O2SAT 97; BMI 23.0
--- NOTE | 2023-09-18 15:52 | A.OFFVIS_ITS ---
Intake Vital Signs 09/18/23 15:52 Height 5 ft 10 in Weight 160 lb 4.417 oz BMI 23.0 BP 160/100 H Blood Pressure Location Rt brachial Position Sitting Pulse 69 Pulse Source Pulse Oximeter Temp 97.2 F Temp Source Skin Pulse Oximetry (%) 97 Intake Visit Reasons: OA Intake Note: Pt last seen 10/01/22, presents today for follow up. He was referred to Hem/Onc and ortho but no showed to those appts. 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 Accompanied by: Self / Same As Patient Allergies NSAIDS (Non-Steroidal Anti-Inflamma [Nsaids] Allergy (Mild, Verified 09/18/23 15:55) RASH Penicillins Allergy (Mild, Verified 09/18/23 15:55) RASH cyclobenzaprine [CYCLOBENZAPRINE] Allergy (Unknown, Verified 09/18/23 15:55) UNKNOWN ibuprofen Allergy (Unknown, Verified 09/18/23 15:55) GI upset, STOMACH PAIN AND VOMITING lisinopril [LISINOPRIL] Allergy (Unknown, Verified 09/18/23 15:55) UNKNOWN, swelling, rash, SEVERE LEG EDEMA naproxen Allergy (Unknown, Verified 09/18/23 15:55) Unknown penicillin V Allergy (Unknown, Verified 09/18/23 15:55) rash tramadol [From ULTRAM] Allergy (Unknown, Verified 09/18/23 15:55) SEIZURES Motrin Allergy (Unknown, Uncoded 09/18/23 15:55) STOMACH PAIN AND VOMITING Medication List - Last Reconciled 09/18/23 by Shyam Boles MD amitriptyline 50 mg PO BEDTIME atenolol 100 mg PO DAILY atorvastatin 20 mg PO DAILY chlorthalidone 25 mg PO DAILY cholecalciferol (vitamin D3) 50 mcg PO DAILY cyclobenzaprine 10 mg PO TID PRN diclofenac epolamine 1.3% 1 patch topical BID diclofenac sodium 1% 1 ea topical QID docusate sodium 100 mg PO DAILY PRN duloxetine 20 mg PO DAILY hydrocortisone 2.5% (Procto-Med HC) 1 appl IA DAILY PRN cqizjdgy-dpe-VO-lycopen-lutein 0.4 mg-300 mcg- 250 mcg (Cerovite Senior) 1 tab PO DAILY nifedipine ER 30 mg PO DAILY nifedipine ER 90 mg PO DAILY oxycodone-acetaminophen 5-325 mg (Percocet) 1 tab PO TID PRN HPI HPI Comments History of Present Illness Details 58-year-old male with generalized osteoa rthritis returns for follow-up. States that been doing about the same overall. States mentions getting flare- ups of joint pain. Most recently he had 1 month history of left hip pain. Significant left hip pain with standing up and walking. Stated that this episode lasted much longer than his painful episodes. He was evaluated by Ortho pedics, trochanteric bursitis was suggested as a cause and patient was advised to follow-up with Rheumatology. Initial history: This is a 56-year-old male with past medical history of hypertension, dyslipidemia who presents for evaluation of multiple joint pains. Condition started in the the patient having intermittent flares of swelling just under his right knee. Usually flares would last a few days and he was treated with ice and topical creams. He is allergic to NSAIDs. One time he went to the emergency room and fluid was drained but he was not given a diagnosis. Now these attacks have become more frequent, most recent attack was about 1 month ago. He also has pain, swelling and redness on his left hand 2nd MCP which also intermittently flares. His mother had history of deforming rheumatoid arthritis. He stated that over the last year he has been having morning stiffness of his hands lasting 1 hour to mid day. He treats that with ice and topical creams. Recently prescribed Percocet by his PCP without significant relief. Patient denies ever being diagnosed with gout, denies kidney stones or blood in urine. He is unaware of a family history of gout. Patient has lost 100 lb over the years due to diet and exercise however he has lost almost 20 lb over the last 6 months unintentionally. 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 Review of Systems Musc Reports back pain, Reports deformity, Reports arthralgias and Reports limited range of motion Physical Exam Vital Signs: Last Vital Signs Temp 97.2 F 09/18/23 15:52 Pulse 69 09/18/23 15:52 BP 160/100 H 09/18/23 15:52 Pulse Ox 97 09/18/23 15:52 BMI result Body Mass Index 23.0 Const General: cooperative Nutritional Appearance: thin and underweight Orientation/consciousness: patient oriented x3 Limitations: no limitations HEENT Other: No oral ulcers Resp Effort & Inspection: normal respiratory effort and able to speak in complete sentences Auscultation: clear to auscultation bilaterally Cardio Rate: regular rate Rhythm: regular rhythm Heart sounds: S1 normal heart sound present and S2 normal heart sound present GI Other: Scaphoid abdomen Palpation (GI): Soft to palpation and nontender Neuro General: patient oriented x3 Extrem Other: Swelling in the right knee infrapatellar area that is rubbery in consistency not warm or tender. No erythema Enlargement of his MCPs as well as Carrie's and Heberden's nodes. No synovitis today. Bilateral shoulder exam shows no swelling erythema or warmth. Mildly limited abduction of both shoulders. Straight leg raise test produces lateral hip pain. There is no groin pain with flexion adduction and internal rotation Negative trochanteric bursa area tenderness Normal range of motion of both knees without pain Results Reviewed Results Reviewed: IMPRESSION: Soft tissue nodule anterior to the anterior tibial prominence right knee likely subcutaneous hematoma or soft tissue nodule. There is no fracture involving the right knee. No joint effusion. ? Unremarkable left knee. ? Unremarkable AP bilateral knee standing exam. Dictated By:Andrea Lazo MDSigned By:<Electronically signed by Andrea Lazo MD in [place]>05/28/22 EXAMINATION: RIGHT HIP AND BILATERAL HAND. CLINICAL INFORMATION: Pain.? COMPARISON: None.? TECHNIQUE: Right hip 2 views. 3 views each hand.? FINDINGS: RIGHT HIP: AP and frog-leg views of the right hip reveal no visible fracture, dislocation or subluxation seen. RIGHT HAND: There is mild loss of PIP and DIP joint space without periarticular spurring. The soft tissues are normal. The MCP joint space is maintained normal. The soft tissues are normal. LEFT HAND: The PIP, DIP and MCP joint space is normal. No bony erosive changes, no periarticular spurring or soft tissue swelling. No acute fracture. XR/XR hip RT min 2V IMPRESSION: Unremarkable right hip and bilateral hand exam.? Dictated By:Andrea Lazo MDSigned By:<Electronically signed by Andrea Lazo MD in [place]>05/09/22 Assessment & Plan Assessment & Plan (1) Generalized osteoarthritis: Code(s): M15.9 - Polyosteoarthritis, unspecified Plan: 56-year-old male with generalized osteoarthritis. He has no active synovitis. Labs showed normal inflammatory markers, negative rheumatoid factor and anti CCP. Symptoms not improved with prednisone. X-rays showing degenerative changes. Patient continues to report intermittent episodes of flare-ups of joint pain. Most recent episode affected his left hip and left thigh and lasted 1 month. Advised patient to come to clinic when he has a flare-up for evaluation. (2) Monoclonal (M) protein disease, multiple 'M' protein: Code(s): D47.2 - Monoclonal gammopathy Plan: Labs show monoclonal band, elevated IgA level and increased alkaline phosphatase. I referred patient to heme Onc for further evaluation patient missed his appointment due to lack of transportation. Advised patient to make another appointment Plan I spent 26 minutes reviewing patient's chart, evaluating patient, counseling patient and documenting in the chart Coding Level of Care Code Est Pt Level 4 (38286) Diagnoses Generalized osteoarthritis M15.9 Monoclonal (M) protein disease, multiple 'M' protein D47.2
== END 2023-09-18 16:17 | disposition home or self-care (01) ==
LOC: HO.RHE 15:50
PROVIDERS: PCP Nurse Practitioner Primary Care; Visit Provider Student in an Organized Health Care Education/Training Program
DX: M15.9 Polyosteoarthritis, unspecified (principal); D47.2 Monoclonal gammopathy
CPT/HCPCS: 99214

== ENCOUNTER → 2023-09-18 15:50 | Outpatient (BNVA) | payer OTHER, SELFPAY | PROVIDERS: PCP Nurse Practitioner Primary Care; Visit Provider Student in an Organized Health Care Education/Training Program | DX: M15.9 Polyosteoarthritis, unspecified (principal); D47.2 Monoclonal gammopathy; Z96.82 Presence of neurostimulator | CPT/HCPCS: 99212 ==

== ENCOUNTER 2024-03-15 09:33 | Outpatient (REF) | payer OTHER, SELFPAY ==
[2024-03-15 11:34] LABS: MANUAL DIFF FLAG NO
[2024-03-15 11:40] LABS: Basophils Percent Auto 0.9 % (0-2); Eosinophils Percent Auto 0.9 % (0-4); Hemoglobin 14.5 g/dl (14.0-18.0); Imm Gran Abs Auto 0.01 X10*3/uL (0.00-0.03); Imm Gran Pct Auto 0.2 % (0.0-0.4); Lymphocytes Percent Auto 21.9 % (20-40); Mean Corpuscular Hemoglobin 28.9 pg (27.0-33.0); Mean Corpuscular Volume 87.6 fL (80.0-98.0); Mean Platelet Volume 11.7 fL (9.4-12.4); Monocytes Absolute Auto 0.3 X10*3/uL (0.1-1.2); Monocytes Percent Auto 6.2 % (2-11); Neutrophils Absolute Auto 3.1 x10*3/uL (2.0-8.3); Neutrophils Percent Auto 69.9 % (45-73); Platelet Count 246 X10*3/uL (160-400); Red Blood Count 5.02 X10*6/uL (4.60-5.80); White Blood Count 4.4 X10*3/uL (4.8-10.8)
[2024-03-15 12:29] LABS: Estimated Average Glucose 114 mg/dL; Hemoglobin A1c % 5.6 % (<6.0)
[2024-03-15 13:12] LABS: Alanine Aminotransferase 57 U/L (0-40); Albumin Level 4.4 g/dL (3.5-5.0); Alkaline Phosphatase 113 U/L (39-117); Anion Gap 9 (12-20); Aspartate Amino Transferase 37 U/L (5-37); Bilirubin Total 0.6 mg/dL (0.0-1.0); Blood Urea Nitrogen 15 mg/dL (9-16); Calcium 9.6 mg/dL (8.4-10.2); Carbon Dioxide 31 mmol/L (22-29); Chloride 102 mmol/L (96-108); Estimated Glomerular Filt Rate > 60; Glucose Random 103 mg/dL (60-115); Potassium 4.1 mmol/L (3.3-5.1); Sodium 138 mmol/L (135-145); Total Protein 7.8 g/dL (6.5-8.0)
[2024-03-15 13:29] LABS: HIV AB/AG Nonreactive (Nonreactive); HIV Num 1 0.05 S/CO (0.00-0.99)
[2024-03-15 13:40] LABS: ~HepC Num1 0.11 S/CO (0.00-0.79); ~Hepatitis C Antibody Nonreactive (Nonreactive)
[2024-03-17 10:09] LABS: RPR Rapid Plasma Reagin NON-REACTIVE (NON-REACTIVE)
[2024-03-19 22:00] LABS: Testosterone, Total 675 ng/dL (250-1100)
== END 2024-03-15 09:34 | disposition home or self-care (01) ==
LOC: HO.HHCL 09:33
PROVIDERS: Visit Provider Nurse Practitioner Primary Care
DX: R53.83 Other fatigue (principal); I10 Essential (primary) hypertension; Z20.2 Contact with and (suspected) exposure to infections with a predominantly sexual mode of transmission
CPT/HCPCS: 36415; 80053; 83036; 84402; 84403; 84443; 85025; 86592; 86803; 87389

== ENCOUNTER → 2024-03-29 14:06 | Outpatient (BNVA) | payer OTHER, SELFPAY | PROVIDERS: PCP Nurse Practitioner Primary Care; Visit Provider Anesthesiology ==

== ENCOUNTER 2024-07-21 11:54 | Outpatient (REF) | payer OTHER, SELFPAY ==
[2024-07-21 13:43] LABS: Cholesterol 172 mg/dL (<200); HDL Cholesterol 53 mg/dL (>40); LDL Cholesterol Calculated 101 mg/dL (<100); Triglycerides 94 mg/dL (<150)
== END 2024-07-21 11:55 | disposition home or self-care (01) ==
LOC: HO.HHCL 11:54
PROVIDERS: Visit Provider Nurse Practitioner Primary Care
DX: Z00.00 Encounter for general adult medical examination without abnormal findings (principal)
CPT/HCPCS: 36415; 80061

== ENCOUNTER 2024-08-25 02:13 | Emergency (ER) | payer OTHER, SELFPAY ==
--- NOTE | ~2024-08-25 | XR_ITS ---
EXAMINATION: XR KNEE, LEFT CLINICAL INFORMATION: Acute pain. COMPARISON: Left knee radiographs 05/24/2022 TECHNIQUE: Four views of the left knee. FINDINGS: Tibial plateau is normal in appearance. Normal joint spacing and alignment. Minimal osteophytosis of the lateral tibial plateau. Minimal osteophytosis of the patellar facets. No gross joint effusion. XR/XR knee LT 4V IMPRESSION: *No acute abnormalities. *Minimal osteophytosis of the patellofemoral joint and lateral tibial plateau which consistent with minimal radiographic evidence of osteoarthritis. Electronically signed by: Dean Young MD 08/25/2024 04:18 AM EDT
[2024-08-25 02:20] VITALS: BP 140/88; PULSE 65; O2SAT 97
[2024-08-25 02:25] VITALS: BP 128/46; PULSE 60; RESP 18; TEMP 36.8; O2SAT 98; BMI 25.1
== END 2024-08-25 05:25 | disposition left against medical advice (07) ==
PROVIDERS: Emergency Provider Emergency Medicine; PCP Nurse Practitioner Primary Care
DX: M25.562 Pain in left knee (principal); Z53.21 Procedure and treatment not carried out due to patient leaving prior to being seen by health care provider
CPT/HCPCS: 73564; 99283; 99284

== ENCOUNTER 2025-02-14 11:46 | Outpatient (REF) | payer OTHER, SELFPAY ==
[2025-02-14 13:16] LABS: Anion Gap 10 (12-20); Blood Urea Nitrogen 23 mg/dL (9-16); Calcium 9.3 mg/dL (8.4-10.2); Carbon Dioxide 29 mmol/L (22-29); Chloride 105 mmol/L (96-108); Estimated Glomerular Filt Rate > 60; Glucose Random 96 mg/dL (60-115); Potassium 3.9 mmol/L (3.3-5.1); Sodium 140 mmol/L (135-145)
--- OUTSIDE RECORDS SUMMARY | 2025-02-14 13:32 | XMS_ITS | Encounter Summary ---
Author Organization [employer] Address [address] [facility] 7t [place] [address] Care Team Providers Care Agriculture Mechanic Name Role Phone Kayleigh Drake DIRK Primary Care Provider [phone] Reason for Visit * Reason Comments Med Refill Encounter Details Date Type Department Care Team (Late st Contact Info) Description 07/21/2024 Refill [facility] ADULT DENTAL [address] [place] [address] Mauri Bejarano DDS [address] [place] [address] Social History Tobacco Use Types Packs/Day Years Used Date Smoking Tobacco: Never Passive Smoke Exposure: Never Smokeless Tobacco: Never Alcohol Use Standard Drinks/Week Comments Not Currently 0 (1 standard drink = 0.6 oz pur e alcohol) Depression Answer Date Recorded Patient Health Questionnaire-9 Score 12 03/09/2024 Patient Health Questionnaire-9 Score 12 03/09/2024 Last PHQ-9: Questionnaire Data Not on file 0 03/09/2024 Housing Stability Answer Date Recorded What is your housing situation today? I have raisa roman 12/10/[address] you li ve. Do you have problems with any of the following? None of the above 12/10/2023 Food Insecurity Answer Date Recorded Within the past 12 months, y ou worried that your food would run out before you got money to buy more: Often true 09/03/2023 Within the past 12 months,th e food you bought just didn't last and you didn't have enough money to get more: Often true Transportation Answer Date Recorded In the past 12 months, has l ack of transportation kept you from medical appts, meetings, work or from getting things needed for daily living? Yes, it has kept me from medical appointments or getting medications. 08/24/2023 Utilities Answer Date Recorded In the past 12 months, has t he electric, gas, oil or water company threatened to shut off services in your home? No 09/03/2023 Depression Answer Date Recorded Patient Health Questionnaire-2 Score 6 03/09/2024 Internet Access Answer Date Recorded Internet Access Q1 No 07/19/2024 Internet Access Q2 I cannot afford it 07/19/2024 Sex and Gender Information Value Date Recorded Sex Assigned at Male 09/16/2022 10:22 AM EDT Legal Sex Male 10:22 AM EDT Gender Identity Male 09/16/2022 10:22 AM EDT Sexual Orientation Straight 09/16/2022 10 :22 AM EDT documented as of this encounter Miscellaneous Notes * Telephone Encounter - Mauri Bejarano DDS - 07/21/2024 11:29 AM EDT Approving, but needs appt for additional refills. documented in this encounter Plan of Treatment Upcoming Encounters Date Type Department Care Team (Late st Contact Info) Description 03/02/2025 9:30 AM EDT Office Visit [facility] ADULT DENTAL [address] [place] [address] Sanam Tam DDS [address] [place] [address] 03/15/2025 2:30 PM EDT Clinical Support [facility] MED & PEDS [address] [place] [address] Christie Mak, RN 505 [place] [address] 04/25/2025 11:15 AM EDT Office Visit [facility] MEDICINE [address] [place] [address] Kayleigh Drake ANP 230 [place] [address] documented as of this encounter Visit Diagnoses Not on filedocumented in this encounter Additional Health Concerns Assessment Noted Time PHQ-9 Depression Total Score: 12 024 9:49 AM EDT documented as of this encounter Care Teams Agriculture Mechanic Relationship Specialty Start Date End Date Kayleigh Drake ANP 230 [place] [address] PCP - General Family Medicine 07/06/21 documented as of this encounter
--- OUTSIDE RECORDS SUMMARY | 2025-02-14 13:32 | XMS_ITS | Encounter Summary ---
Author Organization [employer] Address [address] [facility] 7t [place] [address] Care Team Providers Care Grain Elevator Man Name Role Phone Kayleigh Drake Primary Care Provider [phone] Reason for Visit * Reason Onset Date Comments Med Refill 08/19/2024 Encounter Details Date Type Department Care Team ([facility] st Contact Info) Description 08/19/2024 Telephone [facility] MEDICINE [address] [place] [address] Kayleigh Drake ANP 230 [place] [address] Med Refill Social History Tobacco Use Types Packs/Day Years [...] encounter Miscellaneous Notes * Telephone Encounter - Carmen Raines - 08/19/2024 11:43 AM EDT TC from pt requesting medication refill. Medications needing refill : oxyCODONE-acetaminophen (Percocet) 5-325 MG tablet To be sent to: [facility] documented in this encounter Plan of Treatment Upcoming Encounters Date Type Department Care Team (Late st Contact Info) Description 03/02/2025 9:30 AM EDT Office Visit [facility] ADULT DENTAL [address] [place] [address] Sanam Tam DDS [address] [place] [address] 03/15/2025 2:30 PM EDT Clinical Support [facility] CHC MED & PEDS [address] [place] [address] Christie Mak, RN 505 [place] [address] 04/25/2025 11:15 AM EDT Office Visit [facility] MEDICINE [address] [place] [address] Kayleigh Drake ANP 230 [place] [address] documented as of this encounter Visit Diagnoses Not on filedocumented in this encounter Additional Health Concerns Assessment Noted Time PHQ-9 Depression Total Score: 12 024 9:49 AM EDT documented as of this encounter Care Teams Grain Elevator Man Relationship Specialty Start Date End Date Kayleigh Drake ANP 230 [place] [address] PCP - General Family Medicine 07/06/21 documented as of this encounter
--- OUTSIDE RECORDS SUMMARY | 2025-02-14 13:32 | XMS_ITS | Encounter Summary ---
Author Organization [employer] Address [address] [facility] 7t [place] [address] Care Team Providers Care Etl Lead Name Role Phone Kayleigh Drake DIRK Primary Care Provider [phone] Reason for Visit * Reason Comments Med Refill Encounter Details Date Type Department Care Team (Late st Contact Info) Description 08/19/2024 Refill [facility] ADULT DENTAL [address] [place] [address] Mauri Bejarano DDS [address] [place] [address] Social History Tobacco Use Types Packs/Day Years [...] AM EDT documented as of this encounter Plan of Treatment Upcoming Encounters Date Type Department Care Team (Late st Contact Info) Description 03/02/2025 9:30 AM EDT Office Visit [facility] ADULT DENTAL [address] [place] [address] Sanam Tam DDS [address] [place] [address] 03/15/2025 2:30 PM EDT Clinical Support [facility] MED [facility] PEDS [address] [place] [address] Christie Mak, RN [address] [place] [address] 04/25/2025 11:15 AM EDT Office Visit [facility] MEDICINE [address] [place] [address] Kayleigh Drake ANP [address] [place] [address] documented as of this encounter Visit Diagnoses Not on filedocumented in this encounter Additional Health Concerns Assessment Noted Time PHQ-9 Depression Total Score: 12 024 9:49 AM EDT documented as of this encounter Care Teams Etl Lead Relationship Specialty Start Date End Date Kayleigh Drake ANP [address] [place] [address] PCP - General Family Medicine 07/06/21 documented as of this encounter
--- OUTSIDE RECORDS SUMMARY | 2025-02-14 13:33 | XMS_ITS | Encounter Summary ---
Author Organization [employer] [facility] Address [address] [place] [address] 7t [place] [address] Care Team Providers Care Gripper Machine Operator Name Role Phone Kayleigh Drake Primary Care Provider [phone] Reason for Visit * Reason Comments Med Refill Encounter Details Date Type Department Care Team (Late Contact Info) Description 06/12/2023 Refill [facility] MEDICINE [address] [place] [address] Estephania Mckeon MD [address] [place] [address] Other chronic pain Social History Tobacco Use Types Packs/Day Years Used Date Smoking Tobacco: Never Smokeless Tobacco: Never Alcohol Use Standard Drinks/Week Comments Not Currently 0 (1 standard drink = 0.6 oz pur e alcohol) Sex and Gender Information Value Date Recorded Sex Assigned at Male 09/16/2022 10:22 AM EDT Legal Sex Male 10:22 AM EDT Gender Identity Male 09/16/2022 10:22 AM EDT Sexual Orientation Straight 09/16/2022 10 :22 AM EDT COVID-19 Exposure Response Date Recorded In the last 10 days, have yo u been in contact with someone who was confirmed or suspected to have Coronavirus/COVID-19? No / Unsure 05/15/2023 3:50 PM EDT documented as of this encounter Plan of Treatment Upcoming Encounters Date Type Department Care Team (Late Contact Info) Description 03/02/2025 9:30 AM EDT Office Visit [facility] ADULT DENTAL [address] [place] [address] Sanam Tam DDS [address] [place] [address] 03/15/2025 2:30 PM EDT Clinical Support [facility] MED [facility] PEDS [address] [place] [address] Christie Mak, RN [address] [place], [place] 04/25/2025 11:15 AM EDT Office Visit [facility] MEDICINE [address] [place] [address] Kayleigh Drake ANP [address] [place] [address] documented as of this encounter Visit Diagnoses Diagnosis Other chronic pain documented in this encounter Care Teams Gripper Machine Operator Relationship Specialty Start Date End Date Kayleigh Drake ANP [address] [place] [address] PCP - General Family Medicine 07/06/21 documented as of this encounter
--- OUTSIDE RECORDS SUMMARY | 2025-02-14 13:33 | XMS_ITS | Encounter Summary ---
Author Organization [employer] Address [address] [facility] 7t [place] [address] Care Team Providers Care Club Car Attendant Name Role Phone Kayleihg Drake Primary Care Provider [phone] Reason for Visit * Reason Onset Date Comments Med Refill 07/23/2024 Encounter Details Date Type Department Care Team ([facility] st Contact Info) Description 07/23/2024 Telephone [facility] MEDICINE [address] [place] [address] Kalyeigh Drake ANP [address] [place] [address] Med Refill Social History Tobacco Use Types [...] encounter Miscellaneous Notes * Telephone Encounter - Blanca Simon LPN - 07/23/2024 9:16 AM EDT Medication was sent to [facility] Pharmacy on 03/22/24 #90 with 3 refills. * Telephone Encounter - Gvoind Llanos - 07/23/2024 8:58 AM EDT TC from pt requesting medication refill. Medications needing refill : atorvastatin (Lipitor) 20 MG tablet To be sent to: [facility] documented in this encounter Plan of Treatment Upcoming Encounters Date Type Department Care Team (Late st Contact Info) Description 03/02/2025 9:30 AM EDT Office Visit [facility] ADULT DENTAL [address] [place] [address] Sanam Tam DDS [address] [place] [address] 03/15/2025 2:30 PM EDT Clinical Support [facility] CHC MED & PEDS [address] [place] [address] Christie Mak, SANDRA 505 [place] [address] 04/25/2025 11:15 AM EDT Office Visit [facility] MEDICINE [address] [place] [address] Kayleigh Drake ANP [address] [place] [address] documented as of this encounter Visit Diagnoses Not on filedocumented in this encounter Additional Health Concerns Assessment Noted Time PHQ-9 Depression Total Score: 12 024 9:49 AM EDT documented as of this encounter Care Teams Club Car Attendant Relationship Specialty Start Date End Date Kayleigh Drake ANP [address] [place] [address] PCP - General Family Medicine 07/06/21 documented as of this encounter
--- OUTSIDE RECORDS SUMMARY | 2025-02-14 13:33 | XMS_ITS | Encounter Summary ---
Author Organization [employer] [facility] Address [address] [place] [address] 7t [place] [address] Care Team Providers Care Hang Gliding Instructor Name Role Phone Kayleigh Drake Primary Care Provider [phone] Reason for Visit * Reason Comments Med Refill Encounter Details Date Type Department Care Team (Late st Contact Info) Description 11/14/2022 Refill [facility] [address] [place] [address] Kayleigh Drake ANP [address] [place] [address] Polyarthralgia Social History Tobacco Use Types Packs/Day Years Used Date Smoking Tobacco: Never Assessed Sex and Gender Information Value Date Recorded Sex Assigned at Male 09/16/2022 10:22 AM EDT Legal Sex Male 10:22 AM EDT Gender Identity Male 09/16/2022 10:22 AM EDT Sexual Orientation Straight 09/16/2022 10 :22 AM EDT documented as of this encounter Plan of Treatment Upcoming Encounters Date Type Department Care Team (Late st Contact Info) Description 03/02/2025 9:30 AM EDT Office Visit [facility] ADULT DENTAL [address] [place] [address] Sanam Tam DDS [address] [place] [address] 03/15/2025 2:30 PM EDT Clinical Support [facility] CH[facility] MED & PEDS [address] [place], [place] [id number] Christie Mak, SANDRA 505 [place] [address] 04/25/2025 11:15 AM EDT Office Visit [facility] MEDICINE [address] [place] [address] Kayleigh Drake ANP 230 [place] [address] documented as of this encounter Visit Diagnoses Diagnosis Polyarthralgia Pain in joint, multiple sites documented in this encounter Care Teams Hang Gliding Instructor Relationship Specialty Start Date End Date Kayleigh Drake ANP [address] [place] [address] PCP - General Family Medicine 07/06/21 documented as of this encounter
--- OUTSIDE RECORDS SUMMARY | 2025-02-14 13:33 | XMS_ITS | Encounter Summary ---
Author Organization [employer] Address 75 [facility] 7t [place] [address] Care Team Providers Care Vice President Integrated Name Role Phone Kayleigh Drake Primary Care Provider [phone] Reason for Visit * Reason Onset Date Comments Med Refill 01/07/2024 Encounter Details Date Type Department Care Team ([facility] st Contact Info) Description 01/07/2024 Refill [facility] MEDICINE [address] [place] [address] Kayleigh Drake ANP [address] [place] [address] Polyarthralgia Social History Tobacco Use Types Packs/Day Years Used Date Smoking Tobacco: Never Passive Smoke Exposure: Never Smokeless Tobacco: Never Alcohol Use Standard Drinks/Week Comments Not Currently 0 (1 standard drink = 0.6 oz pur e alcohol) Housing Stability Answer Date Recorded What is [...] off services in your home? No 09/03/2023 Sex and Gender Information Value Date Recorded Sex Assigned at Male 09/16/2022 10:22 AM EDT Legal Sex Male 10:22 AM EDT Gender Identity Male 09/16/2022 10:22 AM EDT Sexual Orientation Straight 09/16/2022 10 :22 AM EDT documented as of this encounter Miscellaneous Notes * Telephone Encounter - Henrikyle Pérez - 01/07/2024 9:03 AM EST TC from pt requesting medication refill. Medications needing refill: oxyCODONE-acetaminophen (Percocet) 5-325 MG tablet To be sent to: [facility] Pharmacy documented in this encounter Plan of Treatment Upcoming Encounters Date Type Department Care Team (Late st Contact Info) Description 03/02/2025 9:30 AM EDT Office Visit [facility] ADULT DENTAL [address] [place] [address] Sanam Tam DDS [address] [place] [address] 03/15/2025 2:30 PM EDT Clinical Support [facility] CH[facility] MED & PEDS 505 [place] [address] Christie Mak, RN 505 [place] [address] 04/25/2025 11:15 AM EDT Office Visit [facility] MEDICINE [address] [place] [address] Kayleigh Drake ANP [address] [place] [address] documented as of this encounter Visit Diagnoses Diagnosis Polyarthralgia Pain in joint, multiple sites documented in this encounter Care Teams Vice President Integrated Relationship Specialty Start Date End Date Kayleigh Drake ANP [address] [place] [address] PCP - General Family Medicine 07/06/21 documented as of this encounter
--- OUTSIDE RECORDS SUMMARY | 2025-02-14 13:33 | XMS_ITS | Encounter Summary ---
Author Organization [employer] Address [address] [facility] 7t [place] [address] Care Team Providers Care Wood Pole Treater Name Role Phone Kayleigh Drake Primary Care Provider [phone] Reason for Visit * Reason Onset Date Comments Med Refill 07/23/2024 Encounter Details Date Type Department Care Team ([facility] st Contact Info) Description 07/23/2024 Telephone [facility] MEDICINE [address] [place] [address] Kayleigh Drake ANP [address] [place] [address] Med Refill Social History Tobacco Use Types [...] encounter Miscellaneous Notes * Telephone Encounter - Govind Llanos - 07/23/2024 8:59 AM EDT TC from pt requesting medication refill. Medications needing refill : Disp Refills Start End oxyCODONE-acetaminophen (Percocet) 5-325 MG tablet To be sent to: [facility] documented in this encounter Plan of Treatment Upcoming Encounters Date Type Department Care Team (Late st Contact Info) Description 03/02/2025 9:30 AM EDT Office Visit [facility] ADULT DENTAL [address] [place] [address] Sanam Tam DDS [address] [place] [address] 03/15/2025 2:30 PM EDT Clinical Support [facility] CHC MED & PEDS [address] [place] [address] Christie Mak, RN 505 [place] [address] 04/25/2025 11:15 AM EDT Office Visit [facility] MEDICINE [address] [place] [address] Kayleigh Drake ANP [address] [place] [address] documented as of this encounter Visit Diagnoses Not on filedocumented in this encounter Additional Health Concerns Assessment Noted Time PHQ-9 Depression Total Score: 12 024 9:49 AM EDT documented as of this encounter Care Teams Wood Pole Treater Relationship Specialty Start Date End Date Kayleigh Drkae ANP 230 [place] [address] PCP - General Family Medicine 07/06/21 documented as of this encounter
--- OUTSIDE RECORDS SUMMARY | 2025-02-14 13:33 | XMS_ITS | Encounter Summary ---
Author Organization [employer] Address [address] [place] [address] 7t [place] [address] Care Team Providers Care Rose Grader Name Role Phone Kayleihg Drake Primary Care Provider [phone] Reason for Visit * Reason Comments Med Refill Encounter Details Date Type Department Care Team (Late st Contact Info) Description 07/24/2023 Refill [facility] MEDICINE [address] [place] [address] Kayleigh Drake ANP [address] [place] [address] Polyarthralgia Social History Tobacco Use Types Packs/Day [...] Description 03/02/2025 9:30 AM EDT Office Visit [facility] ADULT DENTAL [address] [place] [address] Sanam Tam DDS [address] [place] [address] 03/15/2025 2:30 PM EDT Clinical Support [facility] CH[facility] MED & PEDS [address] [place] [address] Christie Mak, RN 505 [place] [address] 04/25/2025 11:15 AM EDT Office Visit [facility] MEDICINE [address] [place] [address] Kayleigh Drake ANP [address] [place] [address] documented as of this encounter Visit Diagnoses Diagnosis Polyarthralgia Pain in joint, multiple sites documented in this encounter Care Teams Rose Grader Relationship Specialty Start Date End Date Kayleigh Drake ANP [address] [place] [address] PCP - General Family Medicine 07/06/21 documented as of this encounter
--- OUTSIDE RECORDS SUMMARY | 2025-02-14 13:33 | XMS_ITS | Encounter Summary ---
Author Organization [employer] [facility] Address [address] [place] [address] 7t [place] [address] Care Team Providers Care Ranch Supervisor Name Role Phone Kayleigh Drake Primary Care Provider [phone] Reason for Visit * Reason Comments Med Refill Encounter Details Date Type Department Care Team (Late st Contact Info) Description 06/25/2023 Refill [facility] MEDICINE [address] [place] [address] Kayleigh Drake ANP [address] [place] [address] Polyarthralgia Social History Tobacco Use Types Packs/Day [...] encounter Miscellaneous Notes * Telephone Encounter - Bibi Bunch RN - 06/26/2023 9:19 AM EDT Already sent by pcp documented in this encounter Plan of Treatment Upcoming Encounters Date Type Department Care Team (Late st Contact Info) Description 03/02/2025 9:30 AM EDT Office Visit [facility] ADULT DENTAL [address] [place] [address] Sanam Tam, DDS [address] [place] [address] 03/15/2025 2:30 PM EDT Clinical Support [facility] CHC MED & PEDS [address] [place] [address] Christie Mak, RN 505 [place] [address] 04/25/2025 11:15 AM EDT Office Visit [facility] MEDICINE [address] [place] [address] Kayleigh Drake ANP [address] [place] [address] documented as of this encounter Visit Diagnoses Diagnosis Polyarthralgia Pain in joint, multiple sites documented in this encounter Care Teams Ranch Supervisor Relationship Specialty Start Date End Date Kayleigh Drake ANP [address] [place] [address] PCP - General Family Medicine 07/06/21 documented as of this encounter
--- OUTSIDE RECORDS SUMMARY | 2025-02-14 13:33 | XMS_ITS | Encounter Summary ---
Author Organization [employer] Address [address] [facility] 7t [place] [address] Care Team Providers Care Trolley Coach Driver Name Role Phone Kayleigh Drake Primary Care Provider [phone] Reason for Visit * Reason Comments Med Refill Encounter Details Date Type Department Care Team (Late st Contact Info) Description 11/05/2024 Refill [facility] MEDICINE [address] [place] [address] Kayleigh Drake ANP [address] [place] [address] Polyarthralgia Social History Tobacco Use Types Packs/Day [...] Description 03/02/2025 9:30 AM EDT Office Visit [facility] ADULT DENTAL [address] [place] [address] Sanam Tam, DDS [address] [place] [address] 03/15/2025 2:30 PM EDT Clinical Support [facility] MED [facility] PEDS [address] [place] [address] Christie Mak, RN 505 [place] [address] 04/25/2025 11:15 AM EDT Office Visit [facility] MEDICINE [address] [place] [address] Kayleigh Drake ANP [address] [place] [address] documented as of this encounter Visit Diagnoses Diagnosis Polyarthralgia Pain in joint, multiple sites documented in this encounter Additional Health Concerns Assessment Noted Time PHQ-9 Depression Total Score: 12 024 9:49 AM EDT documented as of this encounter Care Teams Trolley Coach Driver Relationship Specialty Start Date End Date Kayleigh Drake ANP [address] [place] [address] [place] [address] PCP - General Family Medicine 07/06/21 documented as of this encounter
--- OUTSIDE RECORDS SUMMARY | 2025-02-14 13:33 | XMS_ITS | Encounter Summary ---
Author Organization [employer] [facility] Address [address] [place] [address] 7t [place] [address] Care Team Providers Care Accounting Machine Operator Name Role Phone Kayleigh Drake Primary Care Provider [phone] Reason for Visit * Reason Comments Med Refill Encounter Details Date Type Department Care Team (Late Contact Info) Description 02/06/2023 Refill [facility] MEDICINE [address] [place] [address] Estephania Mckeon MD [address] [place] [address] Polyarthralgia Social History Tobacco Use Types Packs/Day [...] suspected to have Coronavirus/COVID-19? No / Unsure 01/21/2023 10:27 AM EST documented as of this encounter Plan of Treatment Upcoming Encounters Date Type Department Care Team (Late Contact Info) Description 03/02/2025 9:30 AM EDT Office Visit [facility] ADULT DENTAL [address] [place] [address] Sanam Tam DDS [address] [place] [address] 03/15/2025 2:30 PM EDT Clinical Support [facility] MED & PEDS [address] [place] [address] Christie Mak, RN [address] [place] [address] 04/25/2025 11:15 AM EDT Office Visit [facility] MEDICINE [address] [place] [address] Kayleigh Drake ANP [address] [place] [address] documented as of this encounter Visit Diagnoses Diagnosis Polyarthralgia Pain in joint, multiple sites documented in this encounter Care Teams Accounting Machine Operator Relationship Specialty Start Date End Date Kayleigh Drake ANP [address] [place] [address] PCP - General Family Medicine 07/06/21 documented as of this encounter
--- OUTSIDE RECORDS SUMMARY | 2025-02-14 13:33 | XMS_ITS | Encounter Summary ---
Author Organization [employer] Address [address] [facility] 7t [place] [address] Care Team Providers Care Segment Block Layer Name Role Phone Kayleigh Drake DIRK Primary Care Provider [phone] Reason for Visit * Reason Comments Med Refill Encounter Details Date Type Department Care Team ([facility] st Contact Info) Description 12/15/2024 Refill [facility] MEDICINE [address] [place], [place] [phone] Estephania Mckeon MD 230 [place] [address] Other chronic pain Social History Tobacco Use [...] Description 03/02/2025 9:30 AM EDT Office Visit [facility] ADULT DENTAL [address] [place] [address] Sanam Tam DDS [address] [place] [address] 03/15/2025 2:30 PM EDT Clinical Support [facility] MED & PEDS [address] [place] [address] Christie Mak, RN 505 [place] [address] 04/25/2025 11:15 AM EDT Office Visit [facility] MEDICINE [address] [place] [address] Kayleigh Drake ANP [address] [place] [address] documented as of this encounter Visit Diagnoses Diagnosis Other chronic pain documented in this encounter Additional Health Concerns Assessment Noted Time PHQ-9 Depression Total Score: 12 024 9:49 AM EDT documented as of this encounter Care Teams Segment Block Layer Relationship Specialty Start Date End Date Kayleigh Drake ANP [address] [place] [phone] PCP - General Family Medicine 07/06/21 documented as of this encounter
--- OUTSIDE RECORDS SUMMARY | 2025-02-14 13:33 | XMS_ITS | Encounter Summary ---
Author Organization [employer] Address [address] [facility] 7t [place] [address] Care Team Providers Care Director Athletic Name Role Phone Kayleigh Drake Primary Care Provider [phone] Reason for Visit * Reason Onset Date Comments Med Refill 01/21/2025 Encounter Details Date Type Department Care Team ([facility] st Contact Info) Description 01/21/2025 Telephone [facility] MEDICINE [address] [place] [address] Kayleigh Drake ANP 230 [place] [address] Med Refill Social History Tobacco Use Types Packs/Day Years Used Date Smoking Tobacco: Never Passive Smoke Exposure: Never Smokeless Tobacco: Never Alcohol Use Standard Drinks/Week Comments Not Currently 0 (1 standard drink = 0.6 oz pur e alcohol) Depression Answer Date Recorded Patient Health Questionnaire-9 Score 6 01/10/2025 Patient Health Questionnaire-9 Score 6 01/10/2025 Last PHQ-9: Questionnaire Data Not on file 0 01/10/2025 Housing Stability Answer Date Recorded What is [...] Answer Date Recorded Patient Health Questionnaire-2 Score 2 01/10/2025 Internet Access Answer Date Recorded Internet Access [...] * Telephone Encounter - Govind Llanos - 01/21/2025 10:21 AM EST TC from pt requesting medication refill. Medications needing refill : oxyCODONE-acetaminophen (Percocet) 5-325 MG tablet To be sent to: [facility]/pharmacy [address] [place] [address] documented in this encounter Plan of Treatment Upcoming Encounters Date Type Department Care Team (Late st Contact Info) Description 03/02/2025 9:30 AM EDT Office Visit [facility] ADULT DENTAL [address] [place] [address] Sanam Tam DDS [address] [place] [address] 03/15/2025 2:30 PM EDT Clinical Support [facility] MED & PEDS 505 [place] [address] Christie Mak, RN 505 [place] [address] 04/25/2025 11:15 AM EDT Office Visit [facility] MEDICINE [address] [place] [address] Kayleigh Drake ANP 230 [place] [address] documented as of this encounter Visit Diagnoses Not on filedocumented in this encounter Additional Health Concerns Assessment Noted Time PHQ-9 Depression Total Score: 6 01/10/20 25 2:32 PM EST documented as of this encounter Care Teams Director Athletic Relationship Specialty Start Date End Date Kayleigh Drake ANP 230 [place] [address] PCP - General Family Medicine 07/06/21 documented as of this encounter
--- OUTSIDE RECORDS SUMMARY | 2025-02-14 13:33 | XMS_ITS | Encounter Summary ---
Author Organization [employer] Address [address] [place] [address] 7t [place] [address] Care Team Providers Care News Clerk Name Role Phone Kayleigh Drake Primary Care Provider [phone] Reason for Visit * Reason Comments Med Refill Encounter Details Date Type Department Care Team (Late st Contact Info) Description 08/16/2023 Refill [facility] MEDICINE 230 [place] [address] Estephania Mckeon MD 230 [place] [address] Essential hypertension Social History Tobacco Use Types Packs/Day Years [...] Description 03/02/2025 9:30 AM EDT Office Visit [facility] ADULT DENTAL [address] [place] [address] Sanam Tam DDS [address] [place] [address] 03/15/2025 2:30 PM EDT Clinical Support [facility] CHC MED & PEDS [address] [place] [address] Christie Mak, RN 505 [place] [address] 04/25/2025 11:15 AM EDT Office Visit [facility] MEDICINE [address] [place] [address] Kayleigh Drake ANP 230 [place] [address] documented as of this encounter Visit Diagnoses Diagnosis Essential hypertension Unspecified essential hypertension documented in this encounter Care Teams News Clerk Relationship Specialty Start Date End Date Kayleigh Drake ANP [address] [place] [phone] PCP - General Family Medicine 07/06/21 documented as of this encounter
--- OUTSIDE RECORDS SUMMARY | 2025-02-14 13:33 | XMS_ITS | Encounter Summary ---
Author Organization [employer] Address [address] [place] [address] 7t [place] [address] Care Team Providers Care Delinquent Tax Collection Assistant Name Role Phone Kayleigh Drake Primary Care Provider [phone] Reason for Visit * Reason Comments Med Refill Encounter Details Date Type Department Care Team (Late st Contact Info) Description 07/24/2023 Refill [facility] MEDICINE [address] [place] [address] Kayleigh Drake ANP 230 [place] [address] Polyarthralgia Social History Tobacco Use Types Packs/Day [...] 9:30 AM EDT Office Visit [facility] ADULT DENTAL [address] [place] [address] Sanam Tam DDS 230 [place] [address] 03/15/2025 2:30 PM EDT Clinical Support [facility] CHC MED & PEDS [address] [place] [address] Christie Mak, RN 505 [place] [address] 04/25/2025 11:15 AM EDT Office Visit [facility] MEDICINE 230 [place] [address] Kayleigh Drake ANP [address] [place] [address] documented as of this encounter Visit Diagnoses Diagnosis Polyarthralgia Pain in joint, multiple sites documented in this encounter Care Teams Delinquent Tax Collection Assistant Relationship Specialty Start Date End Date Kayleigh Drake ANP [address] [place] [address] PCP - General Family Medicine 07/06/21 documented as of this encounter
--- OUTSIDE RECORDS SUMMARY | 2025-02-14 13:33 | XMS_ITS | Clinical Summary ---
Author Organization [employer] Address [address] [place] [address] 7t [place] [address] Care Team Providers Care Childrens Club Attendant Name Role Phone Kayleigh Drake DIRK Primary Care Provider [phone] Allergies Active Allergy Reactions Criticality Noted Date Comments Altretamine 10/07/2018 Cyclobenzaprine Angioedema 01/10/2025 Ibuprofen 10/07/2018 Lisinopril Swelling 10/07/2018 Leg swelling per pt Naproxen 10/07/2018 Nsaids 02/02/2019 Penicillin G 10/07/2018 Medications capsaicin (Capzasin-HP) 0.1 % cream Apply as needed to hands for pain 09/20/20 21 Active Diclofenac Sodium 1 % gel Apply 2 g topically every 6 (six) hours. 05/23/20 22 Active zoster vaccine-recombi nant adjuvanted (Shingrix) 50 MCG/0.5ML vaccine Inject 0.5 mL into the shoulder, thigh, or buttocks. 09/17/20 21 Active naloxone (Narcan) 4 mg/0.1 mL nasal sprayIndication s:Opiate misuse Administer 1 spray (4 mg) into affected nostril(s) if needed for opioid reversal. 4 each 3 05/13/20 23 Active Multiple Vitamins-Minera ls (PX Complete Senior Multivits) tabletIndicatio ns:Healthcare maintenance Take 1 tablet by mouth in the morning. 90 tablet 3 06/24/20 23 Active atorvastatin (Lipitor) 20 MG tablet TAKE 1 TABLET BY MOUTH EVERY DAY 90 tablet 3 03/22/20 24 Active cholecalciferol (Vitamin D-3) 50 MCG (2000 UT) tablet TAKE 1 TABLET BY MOUTH EVERY DAY 90 tablet 3 03/22/20 24 Active acetaminophen (Tylenol 8 Hour) 650 MG ER tablet TAKE 1 TABLET BY MOUTH EVERY 8 HOURS NEEDED FOR MODERATE PAIN, DO NOT BREAK, CRUSH, DISSOLVE OR CHEW 30 tablet 07/21/20 24 Active atenolol (Tenormin) 50 MG tabletIndicatio ns:Essential hypertension Take 1 tablet (50 mg) by mouth Once daily. 90 tablet 1 10/04/20 24 025 Active amitriptyline (Elavil) 50 MG tabletIndicatio ns:Polyarthralg ia TAKE 1 TABLET BY MOUTH EVERY DAY AT BEDTIME 30 tablet 2 10/29/20 24 Active gabapentin (Neurontin) 300 MG capsuleIndicati ons:Other chronic pain 1 capsule at bedtime for 1 week, then 1 capsule twice daily for 1 week and increase weekly until 1 capsule AM/PM and 2 QHS 120 capsule 2 11/12/20 24 Active NIFEdipine XL (Procardia XL) 60 MG 24 hr tabletIndicatio ns:Essential hypertension TAKE 2 TABLETS (120 MG) BY MOUTH EVERY DAY. DO NOT BREAK, CRUSH, DISSOLVE OR CHEW. 60 tablet 2 12/27/19 25 Active Blood Pressure kitIndications: Essential hypertension 1 each Use as directed. 1 kit 01/10/20 25 Active olmesartan (Benicar) 20 MG tabletIndicatio ns:Essential hypertension Take 1 tablet (20 mg) by mouth Once per day. 90 tablet 1 01/10/20 25 Active oxyCODONE-aceta minophen (Percocet) 5-325 MG tabletIndicatio ns:Polyarthralg ia Take 1 tablet by mouth every 6 (six) hours if needed for severe pain. Do not start before January 26, 2025. 112 tablet 01/27/20 25 Active oxyCODONE-aceta minophen (Percocet) 5-325 MG tabletIndicatio ns:Polyarthralg ia Take 1 tablet by mouth every 6 (six) hours if needed for severe pain. Do not start before December 30, 2024. 112 tablet 12/30/19 25 025 Discontinued(R eorder (will not trigger notification to Pharmacy)) Active Problems Problem Noted Date Diagnosed Date Primary osteoarthritis of left knee 12/09/2024 Polyarthralgia 12/09/2024 Open fracture of tooth 06/14/2024 [facility] prescription opiate use 06/05/2023 Other chronic pain 06/05/2023 Local skin infection 11/12/2022 Assessment & Plan (12/15/2022 7:50 PM EST): Lesion seems to be a infected cyst, will provide mupirocin, if not improving call back clinic Closed fracture multiple phalanges, toe 10/14/20 Closed fracture of lower limb 10/14/2022 Essential hypertension 10/14/2022 Injury of right leg 10/14/2022 Monoclonal gammopathy 08/05/2022 Deviated nasal septum 04/08/2022 Encounters Date Type Department Care Team Description 02/14/[address] [address] Kayleigh Drake ANP Durable Medical Equipment 02/03/2025 1:15 PM EDT Office Visit [address] [address] Kayleigh Drake ANP Essential hypertension (Primary Dx); Polyarthralgia; [facility] prescription opiate use; Stress; Depression, unspecified depression type 02/03/2025 Travel 01/25/2025 Refill [facility] MED & PEDS [address] [place] [address] Christie Mak RN 01/25/[address] [address] Kayleigh Drake ANP Call Back Request 01/21/2025 Refill [facility] MED & PEDS [address] [place] [address] Christie Mak, SANDRA Polyarthralgia 01/21/[address] [address] Kayleigh Drake ANP Med Refill 01/10/2025 2:00 PM EST Office Visit [address] [address] Kayleigh Drake ANP Essential hypertension (Primary Dx); Asymptomatic hypertensive urgency 01/10/2025 1:30 PM EST Telemedicine [facility] MED & PEDS [address] [place] [address] Christie Mak, RN Primary osteoarthritis of left knee 01/10/2025 Telephone [facility] MED & PEDS [address] [place] [address] Christie Mak, SANDRA 01/10/2025 Travel 12/29/2024 Refill [facility] MED & PEDS [address] [place] [address] Christie Mak, RN Polyarthralgia 12/29/2024 Telephone [facility] MEDICINE [address] [place] [address] Kayleigh Drake ANP med refill 12/26/2024 Refill [facility] MEDICINE [address] [place] [address] Kayleigh Drake ANP Essential hypertension 12/15/2024 Refill [facility] MEDICINE [address] [place] [address] Estephania Mckeon MD Other chronic pain 12/08/2024 Telephone [facility] MEDICINE [address] [place] [address] Kayleigh Drake ANP Durable Medical Equipment 12/08/2024 Telephone [facility] MEDICINE [address] [place] [address] Kayleigh Drake ANP Durable Medical Equipment ([facility] Request) 12/01/2024 Refill [facility] MEDICINE [address] [place] [address] Kayleigh Drake ANP Polyarthralgia from Last 3 Months Immunizations Name Administration Dates Next Due Influenza injectable quadriv alent preservative free 10/29/2023,08/15/2022,08/07/2021,2019,09/10/2018 Influenza, IIV3, injectable 08/17/2015, 4 Influenza, Unspecified 08/19/2008 Influenza, seasonal, injecta ble, preservative free 09/03/2024,07/14/2009 Moderna Covid-19 Vaccine 12+ 12/26/2021,04/05/20 21,03/08/2021 Pfizer Covid-19 Vaccine 12+ 03/09/2024, 3 Tdap 08/07/2021,11/17/2009,07/14/2009 Zoster, Recombinant 01/07/2024,03/14/2023 Social History Tobacco Use Types Packs/Day Years Used Date Smoking Tobacco: Never Passive Smoke Exposure: Never Smokeless Tobacco: Never Tobacco Cessation:Counseling Given: Not Answered Alcohol Use Standard Drinks/Week Comments Not Currently [...] Orientation Straight 09/16/2022 10 :22 AM EDT Last Filed Vital Signs Vital Sign Reading Time Taken Comments Blood Pressure 137/81 02/03/2025 1:10 PM EDT Pulse 56 02/03/2025 1:10 PM EDT Temperature 36.7 ??C (98.1 ??F) 02/03/2025 1:10 PM ED T Respiratory Rate 16 02/03/2025 1:10 PM EDT Oxygen Saturation 99% 02/03/2025 1:10 PM EDT Inhaled Oxygen Concentration - - Weight 78.3 kg (172 lb 9.6 oz) 02/03/2025 1:10 P M EDT Height 177.8 cm (5' 10 ) 09/03/2024 11:34 AM EDT Body Mass Index 24.77 09/03/2024 11:34 AM EDT Plan of Treatment Upcoming Encounters Date Type Department Care Team (Late st Contact Info) Description 03/02/2025 9:30 AM EDT Office Visit [facility] ADULT DENTAL [address] [place] [address] Sanam Tam DDS [address] [place] [address] 03/15/2025 2:30 PM EDT Clinical Support [facility] CHC MED & PEDS [address] [place] [address] Christie Mak, RN 505 [place] [address] 04/25/2025 11:15 AM EDT Office Visit [facility] MEDICINE [address] [place] [address] Kayleigh Drake ANP 230 [place] [address] Health Maintenance Due Date Last Done Comments CT Colonography 1965 Colonoscopy 1965 Colorectal Cancer Screening 1965 Dental Oral Exam 1965 Dental Prophylaxis 1965 FIT DNA/Cologuard 1965 FIT 1965 FOBT 1965 Sigmoidoscopy 1965 Hepatitis B Vaccines (1 of 3 - 19+ 3-dose series) 1984 Pneumococcal Vaccine: 50+ Years (1 of 1 - PCV) 2015 COVID-19 Vaccine ( season) 2024 03/09/2024, 10/29/2023, 08/05/2022, Additional history exists SDOH Screening 12/10/2024 12/10/2023 Dental X-Ray: Bitewings 01/21/2025 01/21/2024, 02/25 Alcohol/Substance Use Screening 01/10/2026 01/10/2025 Depression Screening 01/10/2026 01/10/2025, 01/10/20 25 Tobacco Screening 02/03/2026 02/03/2025 Dental X-Ray: Full Mouth 06/15/2027 06/14/2024 Lipid Panel 07/21/2029 07/21/2024, 08/0 05/2023, 09/17/2021, Additional history exists DTaP/Tdap/Td Vaccines (4 - Td or Tdap) 08/07/2031 08/07/2021, 11/17/2009, 07/14/2009 RSV Patients and Patients Aged 60 years or older (1 - 1-dose 75+ series) 2040 Zoster Vaccines Completed 01/07/2024, 03/14/2023 HIV Screening Completed 03/15/2024, 01/29/2022 Hepatitis C Screening Completed 03/15/2024 , 01/29/2022, 08/23/2020 Influenza Vaccine Completed 09/03/2024, , 08/15/2022, Additional history exists HIB Vaccines Aged Out No longer eligi ble based on patient's age to complete this topic HPV Vaccines Aged Out No longer eligi ble based on patient's age to complete this topic Hepatitis A Vaccines Aged Out No long er eligible based on patient's age to complete this topic IPV Vaccines Aged Out No longer eligi ble based on patient's age to complete this topic Meningococcal Vaccine Aged Out No kd ceferino eligible based on patient's age to complete this topic RSV under 20 months Aged Out No longe r eligible based on patient's age to complete this topic Rotavirus Vaccines Aged Out No longer eligible based on patient's age to complete this topic Procedures Procedure Name Priority Date/Time Associated Diagnosis Comments BASIC METABOLIC PANEL Routine 02/14/2025 11:45 AM EDT Essential hypertension LIPID PANEL, STANDARD Routine 07/21/2024 11:57 AM EDT Healthcare maintenance PANORAMIC RADIOGRAPHIC IMAGE Routine 06/14/2024 11:30 AM EDT HEPATITIS C AB W/REFL TO HCV RNA, QN, PCR Routine 03/15/2024 9:34 AM EDT Routine screening for STI (sexually transmitted infection) HIV 1/2 ANTIGEN/ANTIBODY, FOURTH GENERATION W/RFL Routine 03/15/2024 9:34 AM EDT Routine screening for STI (sexually transmitted infection) BITEWING - SINGLE RADIOGRAPHIC IMAGE Routine 01/21/2024 10:30 AM EST Dental caries Pain, dental from Last 3 Months or Most Recently Relevant to Health Maintenance Results * (ABNORMAL) Basic Metabolic Panel (02/14/2025 11:45 AM EDT) Sodium 140 135 - 145 mmol/L [facility] Potassium 3.9 3.3 - 5.1 mmol/L [facility] Chloride 105 96 - 108 mmol/L [facility] Carbon Dioxide 29 22 - 29 mmol/L [facility] Anion Gap 10(L) 12 - 20 [facility] Urea Nitrogen (BUN) 23(H) 9 - 16 mg/dL [facility] Creatinine, Serum 1.20 0.5 - 1.4 mg/dL [facility] Estimated Glomerular Filt Rate >60 [facility] Comment:Chronic Kidney Disea se: Estimated GFR < 60 mL/min/[id number] Kidney Disease: Estimated GFR < 15 mL/min/1.73m2 Glucose 96 60 - 115 mg/dL [facility] Calcium 9.3 8.4 - 10.2 mg/dL [facility] Blood Venous blood specimen / Unknown 02/14/2025 11:45 AM EDT 02/14/2025 12:30 PM EDT Kayleigh CAVAZOS LAB BLOOD ORDERABLES Final Resul t [facility] [address] [place] [address] [phone] * (ABNORMAL) Lipid Panel, Standard (07/21/2024 11:57 AM EDT) Triglycerides 94 <150 mg/dL [facility] Comment:Desirable Triglyceri de: less than 150 mg/dLBorderline High Triglyceride 150-199 mg/dLHigh Triglyceride: 200-499 mg/dLVery High Triglyceride: greater than or equal to 5OO mg/dL Cholesterol 172 <200 mg/dL [facility] Comment:Desirable Cholestero l: less than 200 mg/dLBorderline High Cholesterol: 200-239 mg/dLHigh Cholesterol: greater than 239 mg/dL LDL Cholesterol Calculated 101(H) <100 mg/dL [facility] Comment:Desirable LDL: less than 100 mg/dLNear Optimal/Above Optimal LDL: 110- 129 mg/dLBorderline High LDL: 130-159 mg/dLHigh LDL: 160-189 mg/dLVery High LDL: greater than or equal to 190 mg/dL HDL Cholesterol 53 >40 mg/dL [facility] Comment:Desirable HDL: great er than 40 mg/dL Note: This HDL assay may give artificially low results in patients with liver disease. Blood Venous blood specimen / Unknown 07/21/2024 11:57 AM EDT 07/21/2024 1:06 PM EDT us Kayleigh Drake [facility] LAB BLOOD ORDERABLES Final Resul t Performing Organization Address [facility] Co de Phone Number [facility] [address] [place] [address] [phone] * Hepatitis C Antibody with Reflex to HCV, RNA, Quantitative, Real-Time PCR (03/15/2024 9:34 AM EDT) Hepatitis C Antibody Nonreactive Nonreactive [facility] Comment:Antibodies to HCV no t detected; does not exclude early acuteHCV infection. Blood Venous blood specimen / Unknown 03/15/2024 9:34 AM EDT 03/15/2024 11:32 AM EDT us Kayleigh Drake [facility] LAB BLOOD ORDERABLES Final Resul t Performing Organization Address City/[facility]/ZIP Co de Phone Number [facility] [address] [place] [phone] [phone] * HIV-1/2 Antigen and Antibodies, Fourth Generation, with Reflexes (03/15/2024 9:34 AM EDT) HIV AB/AG Nonreactive Nonreactive [facility] Comment:HIV-1 p24 Ag and/or HIV-1/HIV-2 Ab not detected.A test result that is nonreactive does not exclude thepossibility of exposure to or infection with HIV-1 and/orHIV-2. Nonreactive results in this assay for individualswith prior exposure to HIV-1 and/or HIV-2 may be due toantigen and antibody levels that are below the limit ofdetection of this assay.The [employer] HIV Ag/Ab Combo assay result andsupplemental assay results should be interpreted inconjunction with the patient's clinical presentation,history and other laboratory results. If the results areinconsistent with clinical evidence, additional testing issuggested to confirm the result. Blood Venous blood specimen / Unknown 03/15/2024 9:34 AM EDT 03/15/2024 11:32 AM EDT [facility] LAB BLOOD ORDERABLES Final Resul t [facility] [address] [place] [address] [phone] from Last 3 Months or Most Recently Relevant to Health Maintenance Insurance [facility] Care Teams Childrens Club Attendant Relationship Specialty Start Date End Date Kayleigh Drake ANP [address] [place] [address] PCP - General Family Medicine 07/06/21
--- OUTSIDE RECORDS SUMMARY | 2025-02-14 13:33 | XMS_ITS | Encounter Summary ---
Author Organization [employer] Address [address] [facility] 7t [place] [address] Care Team Providers Care Liquor Bridge Operator Name Role Phone Kayleigh Drake Primary Care Provider [phone] Reason for Visit * Reason Onset Date Comments Appointment Request 06/22/2024 Encounter Details Date Type Department Care Team ([facility] st Contact Info) Description 06/22/2024 Telephone [facility] MEDICINE [address] [place] [address] Kayleigh Drake ANP [address] [place] [address] Appointment Request Social History Tobacco Use Types Packs/Day Years [...] Recorded Patient Health Questionnaire-2 Score 6 03/09/2024 Sex and Gender Information Value Date Recorded Sex Assigned at Male 09/16/2022 10:22 AM EDT Legal Sex Male 10:22 AM EDT Gender Identity Male 09/16/2022 10:22 AM EDT Sexual Orientation Straight 09/16/2022 10 :22 AM EDT documented as of this encounter Miscellaneous Notes * Telephone Encounter - Alton Camacho - 06/22/2024 9:49 AM EDT Tc from pt requesting to r/s appt for [facility] contact number [phone] documented in this encounter Plan of Treatment Upcoming Encounters Date Type Department Care Team (Late st Contact Info) Description 03/02/2025 9:30 AM EDT Office Visit [facility] ADULT DENTAL [address] [place] [address] Sanam Tam DDS [address] [place] [address] 03/15/2025 2:30 PM EDT Clinical Support [facility] CH[facility] MED & PEDS [address] [place] [address] Christie Mak, RN [address] [place] [address] 04/25/2025 11:15 AM EDT Office Visit [facility] MEDICINE [address] [place] [address] Kayleigh Drake ANP [address] [place] [address] documented as of this encounter Visit Diagnoses Not on filedocumented in this encounter Additional Health Concerns Assessment Noted Time PHQ-9 Depression Total Score: 12 024 9:49 AM EDT documented as of this encounter Care Teams Liquor Bridge Operator Relationship Specialty Start Date End Date Kayleigh Drake ANP [address] [place] [address] PCP - General Family Medicine 07/06/21 documented as of this encounter
--- OUTSIDE RECORDS SUMMARY | 2025-02-14 13:33 | XMS_ITS | Encounter Summary ---
Author Organization [employer] Address [address] [employer] 7t [place] [address] Care Team Providers Care Director Of Student Financial Services Name Role Phone Kayleigh Drake DIRK Primary Care Provider [phone] Encounter Details Date Type Department Care Team ([facility] Contact Info) Description 10/27/2024 Telephone C OPTOMETRY [address] [place] [address] Rene, Trina, OD [address] [place] [address] Social History Tobacco Use Types Packs/Day Years [...] Description 03/02/2025 9:30 AM EDT Office Visit [facility] ADULT DENTAL [address] [place] [address] Sanam Tam DDS [address] [place] [address] 03/15/2025 2:30 PM EDT Clinical Support [facility] CHC MED & PEDS [address] [place] [address] Christie Mak, SANDRA 505 [place] [address] 04/25/2025 11:15 AM EDT Office Visit [facility] MEDICINE [address] [place] [address] Kayleigh Drake ANP 230 [place] [address] documented as of this encounter Visit Diagnoses Not on filedocumented in this encounter Additional Health Concerns Assessment Noted Time PHQ-9 Depression Total Score: 12 024 9:49 AM EDT documented as of this encounter Care Teams Director Of Student Financial Services Relationship Specialty Start Date End Date Kayleigh Drake ANP [address] [place] [address] PCP - General Family Medicine 07/06/21 documented as of this encounter
--- OUTSIDE RECORDS SUMMARY | 2025-02-14 13:33 | XMS_ITS | Encounter Summary ---
Author Organization [employer] Address [address] [place] [address] 7t [place] [address] Care Team Providers Care Electronic Calibration Technician Name Role Phone Kayleigh Drake Primary Care Provider [phone] Reason for Visit * Reason Comments Med Refill Encounter Details Date Type Department Care Team (Late st Contact Info) Description 06/25/2023 Refill [facility] MEDICINE [address] [place] [address] Kayleigh Drake ANP 230 [place] [address] Polyarthralgia Social History Tobacco Use Types Packs/Day [...] Description 03/02/2025 9:30 AM EDT Office Visit [facility] ADULT DENTAL [address] [place] [address] Sanam Tam DDS [address] [place] [address] 03/15/2025 2:30 PM EDT Clinical Support [facility] CHC MED & PEDS [address] [place] [address] Christie Mak, RN 505 [place] [address] 04/25/2025 11:15 AM EDT Office Visit [facility] MEDICINE [address] [place] [address] Kayleigh Drake ANP [address] [place] [address] documented as of this encounter Visit Diagnoses Diagnosis Polyarthralgia Pain in joint, multiple sites documented in this encounter Care Teams Electronic Calibration Technician Relationship Specialty Start Date End Date Kayleigh Drake ANP [address] [place] [address] PCP - General Family Medicine 07/06/21 documented as of this encounter
--- OUTSIDE RECORDS SUMMARY | 2025-02-14 13:33 | XMS_ITS | Encounter Summary ---
Author Organization [employer] Address [address] [facility] 7t [place] [address] Care Team Providers Care Linux Systems Analyst Name Role Phone Kayleigh Drake Primary Care Provider [phone] Reason for Visit * Reason Onset Date Comments Med Refill 12/10/2023 Encounter Details Date Type Department Care Team ([facility] st Contact Info) Description 12/10/2023 Telephone [facility] MEDICINE [address] [place] [address] Kayleigh Drake ANP 230 [place] [address] Med Refill Social History Tobacco Use Types [...] Telephone Encounter - Blanca Simon LPN - 12/10/2023 2:32 PM EST Medication pended to PCP. * Telephone Encounter - Issac Mclain - 12/10/2023 2:04 PM EST TC from pt requesting medication refill. Medications needing refill : amitriptyline (Elavil) 50 MG tablet To be sent to: [facility] [place], [place] - [address] [place] [address] documented in this encounter Plan of Treatment Upcoming Encounters Date Type Department Care Team (Late st Contact Info) Description 03/02/2025 9:30 AM EDT Office Visit [facility] ADULT DENTAL [address] [place] [address] Sanam Tam DDS [address] [place] [address] 03/15/2025 2:30 PM EDT Clinical Support [facility] CHC MED & PEDS 505 [place] [address] Christie Mak, RN 505 [place] [address] 04/25/2025 11:15 AM EDT Office Visit [facility] MEDICINE [address] [place] [address] Kayleigh Drake, ANP 230 [place] [address] documented as of this encounter Visit Diagnoses Not on filedocumented in this encounter Care Teams Linux Systems Analyst Relationship Specialty Start Date End Date Kayleigh Drake ANP 230 [place] [address] PCP - General Family Medicine 07/06/21 documented as of this encounter
--- OUTSIDE RECORDS SUMMARY | 2025-02-14 13:33 | XMS_ITS | Encounter Summary ---
Author Organization [employer] Address [address] [facility] 7t [place] [address] Care Team Providers Care Industrial Relations Worker Name Role Phone Kayleigh Drake Primary Care Provider [phone] Reason for Visit * Reason Onset Date Comments Durable Medical Equipment 02/14/2025 Encounter Details Date Type Department Care Team ([facility] st Contact Info) Description 02/14/2025 Telephone [facility] MEDICINE 230 [place] [address] Kayleigh Drake ANP 230 [place] [address] Durable Medical Equipment Social History Tobacco Use Types Packs/Day Years [...] encounter Miscellaneous Notes * Telephone Encounter - Alicia Ramon - 02/14/2025 11:39 AM EDT Patient walked in, said he is receiving calls from [employer] for his DME (Cane and shower chair) 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 Patient said he spoke to [employer] and said he doesn't have transportation to get to them. [employer] said delivery was not an option, Patient would like DME sent to closer location if possible (Patient mentioned [facility] General medical supply in [place]). documented in this encounter Plan of Treatment Upcoming Encounters Date Type Department Care Team (Late st Contact Info) Description 03/02/2025 9:30 AM EDT Office Visit [facility] ADULT DENTAL 230 [place] [address] Sanam Tam DDS [address] [place] [address] 03/15/2025 2:30 PM EDT Clinical Support [facility] CH[facility] MED & PEDS [address] [place] [address] Christie Mak, RN 505 [place] [address] 04/25/2025 11:15 AM EDT Office Visit [facility] MEDICINE 230 [place] [address] Kayleigh Drake ANP 230 [place] [address] documented as of this encounter Visit Diagnoses Not on filedocumented in this encounter Additional Health Concerns Assessment Noted Time PHQ-9 Depression Total Score: 6 01/10/20 25 2:32 PM EST documented as of this encounter Care Teams Industrial Relations Worker Relationship Specialty Start Date End Date Kayleigh Drake ANP [address] [place] [address] PCP - General Family Medicine 07/06/21 documented as of this encounter
--- OUTSIDE RECORDS SUMMARY | 2025-02-14 13:33 | XMS_ITS | Encounter Summary ---
Author Organization [employer] Address [address] [facility] 7t [place] [address] Care Team Providers Care Slide Forming Machine Operator Name Role Phone Kayleigh Drake Primary Care Provider [phone] Reason for Visit * Reason Onset Date Comments Call Back Request 01/25/2025 Encounter Details Date Type Department Care Team ([facility] st Contact Info) Description 01/25/2025 Telephone [facility] MEDICINE 230 [place] [address] Kayleigh Drake ANP 230 [place] [address] Call Back Request Social History Tobacco Use Types Packs/Day [...] encounter Miscellaneous Notes * Telephone Encounter - DIRK Cox - 02/02/2025 4:38 PM EDT I can discuss medbox tomorrow at [facility] - want to be sure pt knows it means using our pharmacy (currently he uses [facility]) * Telephone Encounter - Steffanie Sellers RN - 02/02/2025 3:16 PM EDT Pt came to health center to to look for alternatives to calling call center when PCP needs to be reached, RN educated patient about alternatives to calling the call center such as the walk-in clinic and signing up for [facility]. Pt agrees to look into [employer] and RN sent the activation to his phone. Pt states he has a visit tomorrow with PCP and RN advises him that if he has any trouble with the [employer] signup he can ask for assistance there. 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 Adobe Cq Developer advised due 01/26, pt states he knows about it but always getsit sooner. documented in this encounter Plan of Treatment Upcoming Encounters Date Type Department Care Team (Late st Contact Info) Description 03/02/2025 9:30 AM EDT Office Visit [facility] ADULT DENTAL [address] [place] [address] Sanam Tam, DDS [address] [place] [address] 03/15/2025 2:30 PM EDT Clinical Support [facility] CHC MED & PEDS 505 [place], [place] [id number] Christie Mak, RN 505 [place] [address] 04/25/2025 11:15 AM EDT Office Visit [facility] MEDICINE 230 [place] [address] Kayleigh Drake ANP 230 [place] [address] documented as of this encounter Visit Diagnoses Diagnosis Essential hypertension- Primary Unspecified essential hypertension documented in this encounter Additional Health Concerns Assessment Noted Time PHQ-9 Depression Total Score: 6 01/10/20 25 2:32 PM EST documented as of this encounter Care Teams Slide Forming Machine Operator Relationship Specialty Start Date End Date Kayleigh Drake ANP 230 [place] [address] PCP - General Family Medicine 07/06/21 documented as of this encounter
--- OUTSIDE RECORDS SUMMARY | 2025-02-14 13:33 | XMS_ITS | Encounter Summary ---
Author Organization [facility] Address [address] [place] [address] 7t [place] [address] Care Team Providers Care Securities Dealer Name Role Phone Kayleigh Drake Primary Care Provider [phone] Reason for Visit * Reason Onset Date Comments Med Refill 11/19/2022 Encounter Details Date Type Department Care Team (Late st Contact Info) Description 11/19/2022 Refill [facility] MEDICINE [address] [place] [address] Kayleigh Drake ANP [address] [place] [address] Polyarthralgia Social History Tobacco Use Types Packs/Day Years Used Date Smoking Tobacco: Never Assessed Sex and Gender Information Value Date Recorded Sex Assigned at Male 09/16/2022 10:22 AM EDT Legal Sex Male 10:22 AM EDT Gender Identity Male 09/16/2022 10:22 AM EDT Sexual Orientation Straight 09/16/2022 10 :22 AM EDT documented as of this encounter Miscellaneous Notes * Telephone Encounter - April Rubi - 11/19/2022 8:52 AM EST TC from pt requesting a med refill for oxycodone-aceta 5mg-325mg. PCP DR. Drake documented in this encounter Plan of Treatment Upcoming Encounters Date Type Department Care Team (Late st Contact Info) Description 03/02/2025 9:30 AM EDT Office Visit [facility] ADULT DENTAL [address] [place] [address] Sanam Tam DDS [address] [place] [address] 03/15/2025 2:30 PM EDT Clinical Support [facility] CHC MED & PEDS 505 [place] [address] Christie Mak, RN 505 [place], [place] 04/25/2025 11:15 AM EDT Office Visit [facility] MEDICINE 230 [place] [address] Kayleigh Drake ANP [address] [place] [address] documented as of this encounter Visit Diagnoses Diagnosis Polyarthralgia Pain in joint, multiple sites documented in this encounter Care Teams Securities Dealer Relationship Specialty Start Date End Date Kayleigh Drake ANP 230 [place] [address] PCP - General Family Medicine 07/06/21 documented as of this encounter
--- OUTSIDE RECORDS SUMMARY | 2025-02-14 13:34 | XMS_ITS | Encounter Summary ---
Author Organization [facility] Address [address] [facility] 7t [place] [address] Care Team Providers Care Installation Coordinator Name Role Phone Kayleigh Drake Primary Care Provider [phone] Reason for Visit * Reason Onset Date Comments Nurse Triage 09/13/2024 Encounter Details Date Type Department Care Team ([facility] st Contact Info) Description 09/13/2024 Telephone [facility] MEDICINE [address] [place] [address] Kayleigh Drake ANP [address] [place] [address] Nurse Triage Social History Tobacco Use Types Packs/Day Years [...] * Telephone Encounter - Govind Llanos - 09/13/2024 8:43 AM EDT TC from pt requesting medication refill. Medications needing refill : oxyCODONE-acetaminophen (Percocet) 5-325 MG tablet To be sent to: [facility] pharmacy documented in this encounter Plan of Treatment Upcoming Encounters Date Type Department Care Team (Late st Contact Info) Description 03/02/2025 9:30 AM EDT Office Visit [facility] ADULT DENTAL 230 [place] [address] Sanam Tam DDS [address] [place] [address] 03/15/2025 2:30 PM EDT Clinical Support [facility] CHC MED & PEDS [address] [place] [address] Christie Mak, RN [address] [place] [address] 04/25/2025 11:15 AM EDT Office Visit [facility] MEDICINE [address] [place] [address] Kayleigh Drake, ANP [address] [place] [address] documented as of this encounter Visit Diagnoses Not on filedocumented in this encounter Additional Health Concerns Assessment Noted Time PHQ-9 Depression Total Score: 12 024 9:49 AM EDT documented as of this encounter Care Teams Installation Coordinator Relationship Specialty Start Date End Date Kayleigh Drake ANP [address] [place] [address] PCP - General Family Medicine 07/06/21 documented as of this encounter
== END 2025-02-14 11:47 | disposition home or self-care (01) ==
LOC: HO.HHCL 11:46
PROVIDERS: Visit Provider Nurse Practitioner Primary Care
DX: I10 Essential (primary) hypertension (principal)
CPT/HCPCS: 36415; 80048

== ENCOUNTER 2025-05-30 15:54 | Outpatient (REF) | payer OTHER, SELFPAY | END 2025-05-30 15:55 | disposition home or self-care (01) | LOC: HO.HHCL 15:54 | PROVIDERS: PCP Nurse Practitioner Primary Care; Visit Provider Nurse Practitioner Primary Care | DX: E55.9 Vitamin D deficiency, unspecified (principal) | CPT/HCPCS: 36415; 82306 ==

== ENCOUNTER 2025-05-31 10:25 | Outpatient (REF) | payer OTHER, SELFPAY ==
[2025-05-31 12:15] LABS: Microalbum/Creatinine Ratio Ur 24.3 ug/mg cr (<30)
== END 2025-05-31 10:26 | disposition home or self-care (01) ==
LOC: HO.HHCL 10:25
PROVIDERS: PCP Nurse Practitioner Primary Care; Visit Provider Nurse Practitioner Primary Care
DX: I10 Essential (primary) hypertension (principal)
CPT/HCPCS: 82043; 82570

== ENCOUNTER 2025-07-09 08:28 | Outpatient (REF) | payer OTHER, SELFPAY ==
--- NOTE | ~2025-07-09 | CT_ITS ---
CLINICAL HISTORY: BILATERAL HIP PAIN Exam: CT of the left hip without intravenous contrast. Comparison: Radiographs August 04, [address] november 24, 2022. Findings: Bony alignment of the left hip joint is anatomic. No fracture or erosion. Minor degenerative change of the left hip joint as seen on the patient's prior imaging studies. No definitive left hip joint effusion is seen. No muscle atrophy of the muscles in the left hemipelvis and left proximal thigh. Left-sided pubic rami are intact. Vascular calcification of the left external iliac artery. Mild left sacroiliac joint DJD. Impression: Minor left hip DJD. If the patient has persistent or worsening symptoms, consider MRI of the left hip for further evaluation. This document has been electronically signed by: Pasha Corona MD on 07/11/2025 10:06:33
--- NOTE | ~2025-07-09 | CT_ITS ---
CLINICAL HISTORY: BILATERAL HIP PAIN Exam: CT of the right hip without intravenous contrast. Comparison: Radiographs August 04, [address] november 24, 2022. Findings: Bony alignment of the right hip joint is anatomic. No fracture or erosion. Minimal to mild degenerative change of the right hip joint as seen on the patient's prior imaging studies. No definitive hip joint effusion is seen. No muscle atrophy of the muscles in the right hemipelvis and right proximal thigh. Right-sided pubic rami are intact. Mild right sacroiliac joint DJD. Stimulator device is seen within the subcutaneous fat over the right iliac bone. Impression: Minimal to mild right hip DJD. If the patient has persistent or worsening symptoms, consider MRI of the right hip for further evaluation. This document has been electronically signed by: Pasha Corona MD on 07/11/2025 10:09:22
== END 2025-07-09 08:29 | disposition home or self-care (01) ==
LOC: HO.CT 08:28
PROVIDERS: PCP Nurse Practitioner Primary Care; Visit Provider Nurse Practitioner Primary Care
DX: M25.551 Pain in right hip (principal); M25.552 Pain in left hip
CPT/HCPCS: 73700

== ENCOUNTER → 2025-07-09 08:29 | Outpatient (BNV) | payer OTHER, SELFPAY | PROVIDERS: PCP Nurse Practitioner Primary Care; Visit Provider Radiology Diagnostic Radiology | DX: M25.552 Pain in left hip (principal); M25.551 Pain in right hip | CPT/HCPCS: 73700 ==

== ENCOUNTER 2025-08-26 18:24 | Outpatient (REF) | payer OTHER, SELFPAY ==
[2025-09-05 09:20] LABS: Fentanyl, Ur NEGATIVE; Norfentanyl, Ur 84.7
== END 2025-08-26 18:25 | disposition home or self-care (01) ==
LOC: HO.HHCLNP 18:24
PROVIDERS: Visit Provider Nurse Practitioner Primary Care
DX: G89.29 Other chronic pain (principal)
CPT/HCPCS: 80354

== ENCOUNTER 2025-09-28 15:16 | Outpatient (REF) | payer OTHER, SELFPAY ==
--- OUTSIDE RECORDS SUMMARY | 2025-09-28 09:00 | XMS_ITS | Encounter Summary ---
Author Organization [employer] Address [address] [place] [address] 7t [place] [address] Care Team Providers Care Maintenance And Repair Worker Name Role Phone Kayleigh Drake Primary Care Provider [phone] Reason for Visit * Reason Comments [facility] Encounter Details Date Type Department Care Team (Latest Contact Info) Description 09/28/2025 9:00 AM EST Clinical Support [facility] CHC MED & PEDS [address] [place] [address] Christie Mak, RN [address] [place] [address] Other chronic pain (Primary Dx) Social History Tobacco Use Types Packs/Day Years [...] housing situation today? I have raisa roman 05/19/[address] you li ve. Do you have problems with any of the following? None of the above 05/19/2025 Food Insecurity Answer Date Recorded Within the past 12 months, y ou worried that your food would run out before you got money to buy more: Never True 05/19/2025 Within the past 12 months,th e food you bought just didn't last and you didn't have enough money to get more: Never True 01/2025 Transportation Answer Date Recorded In the past 12 months, has l ack of transportation kept you from medical appts, meetings, work or from getting things needed for daily living? No 05/19/2025 Utilities Answer Date Recorded In the past 12 months, has t he electric, gas, oil or water company threatened to shut off services in your home? No 05/19/2025 Depression Answer Date Recorded Patient Health Questionnaire-2 [...] AM EDT documented as of this encounter Progress Notes * Christie Mak RN - 09/28/2025 9:00 AM EST SUBJECTIVE: Justus Pedroza is a 60 y.o. year old male who presents for [facility] Preferred language for medical information: [place] Interpreted needed: No Justus Pedroza does report adherence to Percocet 5-325 mg, take 1 tablet every 6 hours PRN, last refilled 09/22/25. The patient last took Percocet on: 09/28/25 Medication is: 30% % effective at alleviating pain. OBJECTIVE: PNEUMATIC TESTER checked: 09/28/2025 Pill count completed for Percocet , count today is 96 , anticipated count should be 86, this is as expected. Vital Signs Pain Score: 7 Pain Loc: Back Pain Education: Yes Last PCP visit: 09/22/25 BPI completed on: 08/26/2025 , pain severity score: 8, activity interference score: 9 Controlled substance agreement signed: Controlled Substance Agreement 08/26/2025 UNIVERSITY INTERN Tier: 2 Current Medications[1] Smoking status: Denies ETOH use: Denies Illicit substances: Denies Marijuana use: Denies, Lab Results Component Value Date POCTHC Negative 09/28/2025 POCCOCAINEUR Negative 09/28/2025 POCOPIATEUR Negative 09/28/2025 DOAUR Negative 09/28/2025 POCAMPHETAMI Negative 09/28/2025 POCBENZODIUR Negative 09/28/2025 POCBARBSCRN Negative 09/28/2025 POCMETHADOUR Negative 09/28/2025 POCBUPSCRN Negative 09/28/2025 POCTCAUR Negative 09/28/2025 POCMDMAUR Negative 09/28/2025 POCOXYCODONE Positive (A) 09/28/2025 POCPHENCYCUR Negative 09/28/2025 PROPOXUR Negative 09/28/2025 FENTANYLURIN Positive (A) 09/28/2025 ASSESSMENT: Encounter Diagnosis Name Primary? Other chronic pain Yes PLAN: Information on pain group given: Previously discussed Information on acupuncture given: Previously discussed Narcan education provided: Previously discussed Narcan prescription: active Justus Guanakito Pedroza will continue taking medication as prescribed and follow up at the next [facility] visit or sooner if needed. Justus Pedroza has verbalized understanding of care plan. Future Appointments Date Time Provider Department Center 10/11/2025 1:00 PM Walt Johnson, PharmD MEDICINE [facility] 10/26/2025 10:00 AM Christie Mak RN [facility] Christie Mak RN [1] Current Outpatient Medications: acetaminophen (Tylenol 8 Hour) 650 MG ER tablet, TAKE 1 TABLET BY MOUTH EVERY 8 HOURS NEEDED FORMODERATE PAIN, DO NOT BREAK, CRUSH, DISSOLVE OR CHEW, Disp: 30 tablet, Rfl: 0 amitriptyline (Elavil) 50 MG tablet, TAKE 1 TABLET BY MOUTH AT BEDTIME, Disp: 30 tablet, Rfl: 2 atenolol (Tenormin) 50 MG tablet, TAKE 1 TABLET BY MOUTH EVERY DAY, Disp: 90 tablet, Rfl: 1 atorvastatin (Lipitor) 20 MG tablet, TAKE 1 TABLET BY MOUTH EVERY DAY, Disp: 90 tablet, Rfl: 1 Blood Pressure kit, 1 each Use as directed., Disp: 1 kit, Rfl: 0 capsaicin (Capzasin-HP) 0.1 % cream, Apply as needed to hands for pain, Disp: , Rfl: cholecalciferol VITAMIN D (Vitamin D-3) 50 MCG (2000 UT) tablet, TAKE 1 TABLET BY MOUTH EVERY DAY, Disp: 90 tablet, Rfl: 1 Diclofenac Sodium 1 % gel, Apply 2 g topically every 6 (six) hours., Disp: , Rfl: Multiple Vitamins-Minerals (PX Complete Senior Multivits) tablet, Take 1 tablet by mouth Once per day., Disp: 90 tablet, Rfl: 3 naloxone (Narcan) 4 mg/0.1 mL nasal spray, Administer 1 spray (4 mg) into affected nostril(s) if needed for opioid reversal., Disp: 4 each, Rfl: 3 NIFEdipine XL (Procardia XL) 60 MG 24 hr tablet, TAKE 2 TABLETS (120 MG) BY MOUTH EVERY DAY. DO NOTBREAK, CRUSH, DISSOLVE OR CHEW., Disp: 60 tablet, Rfl: 2 olmesartan (BENIcar) 20 MG tablet, TAKE 1 TABLET BY MOUTH EVERY DAY, Disp: 90 tablet, Rfl: 1 oxyCODONE-acetaminophen (Percocet) 5-325 MG tablet, Take 1 tablet by mouth every 6 (six) hours if needed for severe pain for up to 28 days. Do not start before September 22, 2025., Disp: 112 tablet, Rfl: 0 zoster vaccine-recombinant adjuvanted (Shingrix) 50 MCG/0.5ML vaccine, Inject 0.5 mL into the shoulder, thigh, or buttocks., Disp: , Rfl: documented in this encounter Plan of Treatment Upcoming Encounters Date Type Department Care Team (Late st Contact Info) Description 10/11/2025 1:00 PM EST Medication Management [facility] MEDICINE [address] [place] [address] Walt Johnson, PharmD [address] [place] [address] 10/26/2025 10:00 AM EST Clinical Support [facility] CH[facility] MED & PEDS [address] [place] [address] Christie Mak, RN [address] [place] [address] Scheduled Orders Name Type Priority Associated Diagnoses Orde r Schedule Drug Monitoring, Fentanyl, with Confirmation, Urine Lab Routine Other chronic pain Ordered: 09/28/2025 documented as of this encounter Procedures Procedure Name Priority Date/Time Associated Diagnosis Comments POCT RUBEN-14 URINE DRUG SCREEN Routine 09/28/2025 9:08 AM EST Other chronic pain documented in this encounter Results * (ABNORMAL) POCT RUBEN-14 Urine Drug Screen (09/28/2025 9:08 AM EST) THC Negative Negative Cocaine Screen, Urine Negative Negative Opiate Screen, Urine Negative Negative Methamphetamine Screen Urine Negative Negative Amphetamine Screen, Urine Negative Negative Benzodiazepines Screen, Urine Negative Negative Barbiturate Screen, Urine Negative Negative Methadone Screen, Urine Negative Negative Buprenophine Screen, Urine Negative Negative TCA, Urine Negative Negative MDMA Urine Negative Negative ng/mL Oxycodone Screen, Urine Positive(A) Negative Comment:Rx Phencyclidine (PCP), Urine Negative Negative Propoxyphene, Urine Negative Negative Fentanyl, Urine Positive(A) Negative Urine Urine specimen obtained by clean catch procedure / Unknown 09/28/2025 9:08 AM EST Narrative Christie Mak RN - 09/28/2025 9:08 AM EST . Internal Pass Control Lot# [id number] Exp: 09-16-26 Kayleigh CAVAZOS POINT OF CARE TEST ENTER/EDIT OR DERABLES Final Result documented in this encounter Visit Diagnoses Diagnosis Other chronic pain- Primary documented in this encounter Additional Health Concerns Assessment Noted Time PHQ-9 Depression Total Score: 6 01/10/20 25 2:32 PM EST documented as of this encounter Care Teams Maintenance And Repair Worker Relationship Specialty Start Date End Date Kayleigh Drake ANP [address] [place] [address] PCP - General Family Medicine 07/06/21 documented as of this encounter
--- OUTSIDE RECORDS SUMMARY | 2025-09-28 18:32 | XMS_ITS | Encounter Summary ---
Author Organization [employer] Address [address] [facility] 7t [place] [address] Care Team Providers Care Battery Container Tester Aluminum Name Role Phone Kayleigh Drake Primary Care Provider [phone] Reason for Visit * Reason Onset Date Comments Med Refill 01/07/2024 Encounter Details Date Type Department Care Team (Late st Contact Info) Description 01/07/2024 Refill [facility] [address] [place] [address] Kayleigh Drake ANP [address] [place] [address] Polyarthralgia Social History Tobacco Use Types Packs/Day [...] encounter Miscellaneous Notes * Telephone Encounter - Henri Beto - 01/07/2024 9:03 AM EST TC from pt requesting medication refill. Medications needing refill: oxyCODONE-acetaminophen (Percocet) 5-325 MG tablet To be sent to: [facility] documented in this encounter Plan of Treatment Upcoming Encounters Date Type Department Care Team (Late st Contact Info) Description 10/11/2025 1:00 PM EST Medication Management [facility] [address] [place] [address] Walt Johnson, PharmD [address] [place] [address] 10/26/2025 10:00 AM EST Clinical Support [facility] [address] [place] [address] Christie Mak, RN 505 [place] [address] documented as of this encounter Visit Diagnoses Diagnosis Polyarthralgia Pain in joint, multiple sites documented in this encounter Care Teams Battery Container Tester Aluminum Relationship Specialty Start Date End Date Kayleigh Drake ANP [address] [place] [address] PCP - General Family Medicine 07/06/21 documented as of this encounter
--- OUTSIDE RECORDS SUMMARY | 2025-09-28 18:32 | XMS_ITS | Encounter Summary ---
Author Organization [employer] Address 75 [facility] 7t [place] [address] Care Team Providers Care Oxidation Operator Name Role Phone Kayleigh Drake DIRK Primary Care Provider [phone] Reason for Visit * Reason Comments Med Refill Encounter Details Date Type Department Care Team ([facility] st Contact Info) Description 07/21/2024 Refill [facility] [address] [place] [address] Mauri Bejarano DDS [address] [place] [address] Social History Tobacco Use Types Packs/Day Years [...] Description 10/11/2025 1:00 PM EST Medication Management [facility] [address] [place] [address] Walt Johnson, PharmD [address] [place] [address] 10/26/2025 10:00 AM EST Clinical Support [facility] [address] [place] [address] Christie Mak, RN 505 [place] [address] documented as of this encounter Visit Diagnoses Not on filedocumented in this encounter Additional Health Concerns Assessment Noted Time PHQ-9 Depression Total Score: 12 024 9:49 AM EDT documented as of this encounter Care Teams Oxidation Operator Relationship Specialty Start Date End Date Kayleigh Drake ANP [address] [place] [address] PCP - General Family Medicine 07/06/21 documented as of this encounter
--- OUTSIDE RECORDS SUMMARY | 2025-09-28 18:32 | XMS_ITS | Encounter Summary ---
Author Organization [employer] Address 75 [facility] 7t [place] [address] Care Team Providers Care Form Press Operator Name Role Phone Kayleigh Drake Primary Care Provider [phone] Reason for Visit * Reason Comments Med Refill Encounter Details Date Type Department Care Team ([facility] st Contact Info) Description 12/15/2024 Refill [facility] [address] [place], [place] [phone] Estephania Mckeon MD [address] [place], [place] [phone] Other chronic pain Social History Tobacco Use [...] Description 10/11/2025 1:00 PM EST Medication Management [facility] 230 [place] [address] Walt Johnson, PharmD 230 [place] [address] 10/26/2025 10:00 AM EST Clinical Support [facility] [address] [place] [address] Christie Mak, RN 505 [place] [address] documented as of this encounter Visit Diagnoses Diagnosis Other chronic pain documented in this encounter Additional Health Concerns Assessment Noted Time PHQ-9 Depression Total Score: 12 024 9:49 AM EDT documented as of this encounter Care Teams Form Press Operator Relationship Specialty Start Date End Date Kayleigh Drake ANP [address] [place] [address] PCP - General Family Medicine 07/06/21 documented as of this encounter
--- OUTSIDE RECORDS SUMMARY | 2025-09-28 18:32 | XMS_ITS | Encounter Summary ---
Author Organization [employer] Address [address] [place] [address] 7t [place] [address] Care Team Providers Care Concrete Puddler Name Role Phone Kayleigh Drake Primary Care Provider [phone] Reason for Visit * Reason Onset Date Comments Med Refill 12/10/2023 Encounter Details Date Type Department Care Team ([facility] st Contact Info) Description 12/10/2023 Telephone [facility] [address] [place] [address] Kayleigh Drake ANP 230 [place] [address] Med Refill Social History Tobacco Use Types [...] 50 MG tablet To be sent to: [facility] [place], [place] - [address] [place] [address] documented in this encounter Plan of Treatment Upcoming Encounters Date Type Department Care Team (Late st Contact Info) Description 10/11/2025 1:00 PM EST Medication Management [facility] [address] [place] [address] Walt Johnson, PharmD 230 [place] [address] 10/26/2025 10:00 AM EST Clinical Support [facility] [address] [place] [address] Christie Mak, SANDRA [address] [place] [address] documented as of this encounter Visit Diagnoses Not on filedocumented in this encounter Care Teams Concrete Puddler Relationship Specialty Start Date End Date Kayleigh Drake ANP 230 [place] [address] PCP - General Family Medicine 07/06/21 documented as of this encounter
--- OUTSIDE RECORDS SUMMARY | 2025-09-28 18:32 | XMS_ITS | Encounter Summary ---
Author Organization [employer] Address [address] [place] [address] 7t [place] [address] Care Team Providers Care Records Associate Name Role Phone Kayleigh Drake Primary Care Provider [phone] Reason for Visit * Reason Onset Date Comments Med Refill 08/03/2025 Encounter Details Date Type Department Care Team ([facility] st Contact Info) Description 08/03/2025 Telephone [facility] [address] [place] [address] Kayleigh Drake ANP 230 [place] [address] Med Refill Social History Tobacco Use Types [...] encounter Miscellaneous Notes * Telephone Encounter - Eden Kearns - 08/03/2025 9:19 AM EDT TC from pt requesting medication refill. Medications needing refill : - oxyCODONE-acetaminophen (Percocet) 5-325 MG tablet To be sent to: - [facility] - [place], [place] - [address] [place] [address] documented in this encounter Plan of Treatment Upcoming Encounters Date Type Department Care Team ([facility] st Contact Info) Description 10/11/2025 1:00 PM EST Medication Management [facility] [address] [place] [address] Walt Johnson, PharmD [address] [place] [address] 10/26/2025 10:00 AM EST Clinical Support [facility] [address] [place] [address] Christie Mak, RN [address] [place] [address] documented as of this encounter Visit Diagnoses Not on filedocumented in this encounter Additional Health Concerns Assessment Noted Time PHQ-9 Depression Total Score: 6 01/10/20 25 2:32 PM EST documented as of this encounter Care Teams Records Associate Relationship Specialty Start Date End Date Kayleigh Drake ANP 230 [place] [address] PCP - General Family Medicine 07/06/21 documented as of this encounter
--- OUTSIDE RECORDS SUMMARY | 2025-09-28 18:32 | XMS_ITS | Encounter Summary ---
Author Organization [employer] Address [address] [place] [address] 7t [place] [address] Care Team Providers Care Injection Molding Machine Setter Name Role Phone Kayleigh Drake Primary Care Provider [phone] Reason for Visit * Reason Onset Date Comments Call Back Request 01/25/2025 Encounter Details Date Type Department Care Team ([facility] st Contact Info) Description 01/25/[address] [facility] 230 [place] [address] Kayleigh Drake ANP 230 [place] [address] Call Back Request Social History Tobacco Use [...] medbox tomorrow at [facility] - want to be sure pt knows [...] the walk-in clinic and signing up for [employer]IST[employer]. Pt agrees to look into [facility] [employer] and RN sent the activation to his phone. Pt states he has a visit tomorrow with PCP and RN advises him that if he has any trouble with the [employer] signup he can ask for assistance there. Pt expresses understanding and agrees to plan of care.Pt also requesting [place] medbox assistance * Telephone Encounter - Ramona Lopez - 01/25/2025 11:11 AM EDT Tc from pt requesting a call back from Christie stating wants to tow picker oxyCODONE-acetaminophen (Percocet) 5-325 MG tablet today. Mill Control Operator advised due 01/26, pt states he knows about it but always getsit sooner. documented in this encounter Plan of Treatment Upcoming Encounters Date Type Department Care Team (Late st Contact Info) Description 10/11/2025 1:00 PM EST Medication Management [facility] [address] [place] [address] Walt Johnson, PharmD 230 [place], [place] [phone] 10/26/2025 10:00 AM EST Clinical Support [facility] 505 [place], [place] [phone] Christie Mak, RN 505 [place], [place] [phone] documented as of this encounter Visit Diagnoses Diagnosis Essential hypertension- Primary Unspecified essential hypertension documented in this encounter Additional Health Concerns Assessment Noted Time PHQ-9 Depression Total Score: 6 01/10/20 25 2:32 PM EST documented as of this encounter Care Teams Injection Molding Machine Setter Relationship Specialty Start Date End Date Kayleigh Drake ANP 230 [place] [address] PCP - General Family Medicine 07/06/21 documented as of this encounter
--- OUTSIDE RECORDS SUMMARY | 2025-09-28 18:32 | XMS_ITS | Encounter Summary ---
Author Organization [employer] Address [address] [place] [address] 7t [place] [address] Care Team Providers Care Dirt Contractor Name Role Phone Kayleigh Drake Primary Care Provider [phone] Reason for Referral * Consultation (Routine) - Authorized Specialty Diagnoses / Procedures Referred By Alysha wyman Referred To Contact Orthopaedic Surgery Diagnoses Bilateral hip pain Kayleigh Drake ANP [address] [place] [address] Phone: tel: fax: [facility] [address] [place] [address] Phone: tel: Referral ID Status Reason Start Date Expiration Date Visits Requested Visits Authorized [id number] Authorized Specialty Services Required 07/29/2025 07/29/2026 1 1 Reason for Visit * Reason Onset Date Comments Results 07/29/2025 Encounter Details Date Type Department Care Team (Late st Contact Info) Description 07/29/2025 Results Follow-Up [facility] MED[facility]INE [address] [place] [address] Kayleigh Drake ANP [address] [place] [address] CT Hip w/o Contrast Right Social History Tobacco Use Types Packs/Day Years [...] as of this encounter Miscellaneous Notes * Result Encounter Note - DIRK Cox - 07/29/2025 11:00 AM EDT Discussed rx w/ EMBALMER ASSISTANT, pt again advised of need to keep appts. He schedules and then cancels. Referral placed to ortho. * Telephone Encounter - Adilene Bahena RN - 07/29/2025 9:22 AM EDT Telephone call placed to pt regarding below results and POC. Informed CT scan showed mild degenerative joint disease. Discussed options: ortho referral to further evaluate or Pain Management referralbut that he would have to call them d/t many previous no shows. Pt responded by talking at length about his difficulties with transportation, his obligation to care for his deaf child, his pain that causes falls, his inability to drive to [place] to see EMBALMER ASSISTANT RN, and his grievances with receiving limited script of percocet. Pt informed that I would send message to EMBALMER ASSISTANT RN regarding his refill request and request to seen in [facility] for EMBALMER ASSISTANT. Redirected back to CT results and options. Pt agreeable to ortho referral. Advised if he doesn't hear from them within 2 weeks to schedule an appt, please let usknow. Pt verbalized understanding and denied having any further questions or concerns at this time. * Telephone Encounter - Adilene Bahena RN - 07/29/2025 9:14 AM EDT ----- Message from Kayleigh Drkae sent at 07/29/2025 9:04 AM EDT ----- Please let pt know that bilateral HIP CT w/o significant abn, does have mild degenerative joint disease. We could refer to ortho for eval or pain mgmt but he will have to contact that office (pain mgmt) directly d/t many previous no-shows if he does want to schedule. ----- Message ----- From: Rai Walsh Results In Sent: 07/11/2025 10:11 AM EDT To: DIRK Cox * Result Encounter Note - DIRK Cox - 07/29/2025 9:04 AM EDT Please let pt know that bilateral HIP CT w/o significant abn, does have mild degenerative joint disease. We could refer to ortho for eval or pain mgmt but he will have to contact that office (pain mgmt) directly d/t many previous no-shows if he does want to schedule. documented in this encounter Plan of Treatment Upcoming Encounters Date Type Department Care Team (Late st Contact Info) Description 10/11/2025 1:00 PM EST Medication Management [facility] [address] [place] [address] Walt Johnson, PharmD 230 [place] [address] 10/26/2025 10:00 AM EST Clinical Support [facility] [address] [place] [address] Christie Mak, RN 505 [place] [address] Scheduled Referrals Name Type Priority Associated Diagnoses Order Schedule Referral to Orthopaedic Surgery Outpatient Referral Routine Bilateral hip pain Expected: 07/29/2025 (Approximate), Expires: 07/29/2026 documented as of this encounter Visit Diagnoses Diagnosis Bilateral hip pain- Primary Pain in joint, pelvic region and thigh documented in this encounter Additional Health Concerns Assessment Noted Time PHQ-9 Depression Total Score: 6 01/10/20 25 2:32 PM EST documented as of this encounter Care Teams Dirt Contractor Relationship Specialty Start Date End Date Kayleigh Drake ANP [address] [place] [address] PCP - General Family Medicine 07/06/21 documented as of this encounter
--- OUTSIDE RECORDS SUMMARY | 2025-09-28 18:32 | XMS_ITS | Encounter Summary ---
Author Organization [employer] Address [address] [place] [address] [address], [place] [address] Care Team Providers Care Back Seam Stitcher Name Role Phone Kayleigh Drake Primary Care Provider [phone] Reason for Visit * Reason Onset Date Comments Med Refill 11/19/2022 Encounter Details Date Type Department Care Team (Late st Contact Info) Description 11/19/2022 Refill [facility] [address] [place] [address] Kayleigh Drake ANP [address] [place] [address] Polyarthralgia Social History Tobacco Use Types Packs/Day [...] Description 10/11/2025 1:00 PM EST Medication Management [facility] [address] [place] [address] Walt Johnson, PharmD [address] [place] [address] 10/26/2025 10:00 AM EST Clinical Support [facility] [address] [place] [address] Christie Mak, RN 505 [place] [address] documented as of this encounter Visit Diagnoses Diagnosis Polyarthralgia Pain in joint, multiple sites documented in this encounter Care Teams Back Seam Stitcher Relationship Specialty Start Date End Date Kayleigh Drake ANP [address] [place] [address] PCP - General Family Medicine 07/06/21 documented as of this encounter
--- OUTSIDE RECORDS SUMMARY | 2025-09-28 18:32 | XMS_ITS | Encounter Summary ---
Author Organization [employer] Address [address] [place] [address] 7 [place] [address] Care Team Providers Care Component Inspector Name Role Phone Kayleigh Drake Primary Care Provider [phone] Reason for Visit * Reason Comments Med Refill Encounter Details Date Type Department Care Team (Late Contact Info) Description 07/24/2023 Refill [facility] [address] [place] [address] Kayleigh Drake ANP [address] [place] [address] Polyarthralgia Social History Tobacco Use Types Packs/Day [...] Description 10/11/2025 1:00 PM EST Medication Management [facility] [address] [place] [address] Walt Johnson, PharmD 230 [place] [address] 10/26/2025 10:00 AM EST Clinical Support [facility] 505 [place], [place] [phone] Christie Mak, SANDRA 505 [place] [address] documented as of this encounter Visit Diagnoses Diagnosis Polyarthralgia Pain in joint, multiple sites documented in this encounter Care Teams Component Inspector Relationship Specialty Start Date End Date Kayleigh Drake ANP [address] [place] [address] PCP - General Family Medicine 07/06/21 documented as of this encounter
--- OUTSIDE RECORDS SUMMARY | 2025-09-28 18:32 | XMS_ITS | Encounter Summary ---
Author Organization [employer] Address [address] [place] [address] 7 [place] [address] Care Team Providers Care Relish Maker Name Role Phone Kayleigh Drake Primary Care Provider [phone] Reason for Visit * Reason Comments Med Refill Encounter Details Date Type Department Care Team (Late st Contact Info) Description 06/25/2023 Refill [facility]INE [address] [place] [address] Kayleigh Drake ANP [address] [place] [address] Polyarthralgia Social History Tobacco Use Types Packs/Day [...] Description 10/11/2025 1:00 PM EST Medication Management [facility] [address] [place] [address] Walt Johnson PharmD [address] [place] [address] 10/26/2025 10:00 AM EST Clinical Support [facility] [address] [place] [address] Christie Mak, RN 505 [place] [address] documented as of this encounter Visit Diagnoses Diagnosis Polyarthralgia Pain in joint, multiple sites documented in this encounter Care Teams Relish Maker Relationship Specialty Start Date End Date Kayleigh Drake ANP [address] [place] [address] PCP - General Family Medicine 07/06/21 documented as of this encounter
--- OUTSIDE RECORDS SUMMARY | 2025-09-28 18:32 | XMS_ITS | Clinical Summary ---
Author Organization [employer] Address [address] [place] [address] [address] [place] [address] Care Team Providers Care Railways Assistant Name Role Phone Sagrario Conley Primary Care Provider Allergies Active Allergy Reactions Criticality Noted Date Comments Anirudh Inhibitors Rash,Swelling High 06/05/2015 Altretamine 10/07/2018 Cyclobenzaprine Angioedema 01/10/2025 Ibuprofen 10/07/2018 Lisinopril Swelling 10/07/2018 Leg swelling per pt Meloxicam Nausea And Vomiting 08/31/2019 Naproxen 10/07/2018 Nsaids Unknown 06/05/2015 Penicillin G 10/07/2018 Penicillins Hives,Unknown High 06/05/2015 Tramadol Other 06/05/2015 Other Reaction(s): Other (See Comments) seizures seizure Medications * This document contains information received from the source organization and may not represent a complete record from that organization. capsaicin (Capzasin-HP) 0.1 % cream Apply as needed to hands for pain 09/20/20 21 Active Diclofenac Sodium 1 % gel Apply 2 g topically every 6 (six) hours. 05/23/20 22 Active zoster vaccine-recombi nant adjuvanted (Shingrix) 50 MCG/0.5ML vaccine Inject 0.5 mL into the shoulder, thigh, or buttocks. 09/17/20 21 Active acetaminophen (Tylenol 8 Hour) 650 MG ER tablet TAKE 1 TABLET BY MOUTH EVERY 8 HOURS NEEDED FOR MODERATE PAIN, DO NOT BREAK, CRUSH, DISSOLVE OR CHEW 30 tablet 07/21/20 24 Active Blood Pressure kitIndications: Essential hypertension 1 each Use as directed. 1 kit 01/10/20 25 Active Multiple Vitamins-Minera ls (PX Complete Senior Multivits) tabletIndicatio ns:Healthcare maintenance Take 1 tablet by mouth Once per day. 90 tablet 3 03/16/20 25 Active atenolol (Tenormin) 50 MG tabletIndicatio ns:Essential hypertension TAKE 1 TABLET BY MOUTH EVERY DAY 90 tablet 1 04/27/20 25 Active atorvastatin (Lipitor) 20 MG tablet TAKE 1 TABLET BY MOUTH EVERY DAY 90 tablet 1 04/27/20 25 Active cholecalciferol VITAMIN D (Vitamin D-3) 50 MCG (2000 UT) tablet TAKE 1 TABLET BY MOUTH EVERY DAY 90 tablet 1 04/27/20 25 Active NIFEdipine XL (Procardia XL) 60 MG 24 hr tabletIndicatio ns:Essential hypertension TAKE 2 TABLETS (120 MG) BY MOUTH EVERY DAY. DO NOT BREAK, CRUSH, DISSOLVE OR CHEW. 60 tablet 2 04/27/20 25 Active olmesartan (BENIcar) 20 MG tabletIndicatio ns:Essential hypertension TAKE 1 TABLET BY MOUTH EVERY DAY 90 tablet 1 07/11/20 25 Active amitriptyline (Elavil) 50 MG tabletIndicatio ns:Polyarthralg ia TAKE 1 TABLET BY MOUTH AT BEDTIME 30 tablet 2 08/01/20 25 Active oxyCODONE-aceta minophen (Percocet) 5-325 MG tabletIndicatio ns:Polyarthralg ia Take 1 tablet by mouth every 6 (six) hours if needed for severe pain for up to 28 days. Do not start before September 22, 2025. 112 tablet 09/22/20 25 025 Active naloxone (Narcan) 4 mg/0.1 mL nasal sprayIndication s:prison prescription opiate use Administer 1 spray (4 mg) into affected nostril(s) if needed for opioid reversal. 4 each 3 09/22/20 25 Active naloxone (Narcan) 4 mg/0.1 mL nasal sprayIndication s:Opiate misuse Administer 1 spray (4 mg) into affected nostril(s) if needed for opioid reversal. 4 each 3 05/13/20 23 025 Discontinued(R eorder (will not trigger notification to Pharmacy)) gabapentin (Neurontin) 300 MG capsuleIndicati ons:Other chronic pain 1 capsule at bedtime for 1 week, then 1 capsule twice daily for 1 week and increase weekly until 1 capsule AM/PM and 2 QHS 120 capsule 2 11/12/20 24 025 Discontinued(T herapy completed) oxyCODONE-aceta minophen (Percocet) 5-325 MG tabletIndicatio ns:Polyarthralg ia Take 1 tablet by mouth every 6 (six) hours if needed for severe pain for up to 28 days. 112 tablet 08/26/20 25 025 Discontinued(R eorder (will not trigger notification to Pharmacy)) Active Problems Problem Noted Date Diagnosed Date Spinal cord stimulator status 05/19/2025 Primary osteoarthritis of left knee 12/09/2024 Polyarthralgia 12/09/2024 Open fracture of tooth 06/14/2024 prison prescription opiate use 06/05/2023 Other chronic pain 06/05/2023 Local skin infection 11/12/2022 Assessment & Plan (12/15/2022 7:50 PM EST): Lesion seems to be a infected cyst, will provide mupirocin, if not improving call back clinic Closed fracture multiple phalanges, toe 10/14/20 Closed fracture of lower limb 10/14/2022 Essential hypertension 10/14/2022 Injury of right leg 10/14/2022 Monoclonal gammopathy 08/05/2022 Deviated nasal septum 04/08/2022 Closed fracture of right ankle 10/25/2020 Mixed hyperlipidemia 10/25/2020 Vitamin D deficiency 10/25/2020 Depression 06/05/2015 Overview (03/02/2025): Depressive disorder Inguinal hernia 06/05/2015 Overview (03/02/2025): Inguinal hernia Low back pain 06/05/2015 Overview (03/02/2025): Low back pain Hypertension 06/05/2015 Overview (03/02/2025): Hypertensive disorder Resolved Problems Problem Noted Date Diagnosed Date Resolved Date Epilepsy ([facility]) 06/05/2015 Overview (03/02/2025): Epilepsy Encounters Date Type Department Care Team Description 09/28/2025 9:00 AM EST Clinical Support [facility] [address] [place] [address] Christie Mak, RN Other chronic pain (Primary Dx) 09/28/2025 Telephone [facility] [address] [place] [address] Christie Mak RN 09/28/2025 Travel 09/22/2025 9:15 AM EST Office Visit [facility] [address] [place] [phone] Sagrario Conley ANP Mixed hyperlipidemia (Primary Dx); Polyarthralgia; Essential hypertension; Encounter for immunization; 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 09/22/2025 Telephone [facility] [address] [place] [address] Christie Mak RN 09/22/2025 Travel 09/22/2025 Telephone [facility] [address] [place] [phone] Sagrario Conley ANP Appointment Request 09/19/2025 Refill [facility] [address] [place] [address] Christie Mak RN Polyarthralgia 09/19/[address] [address] Sagrario Conley ANP chart prep 09/19/[address] [address] Sagrario Conley ANP Med Refill 09/15/2025 Patient Outreach [facility] [address] [place] [address] Sagrario Conley ANP Pre-visit Planning (SDOH was already completed) 08/26/2025 9:30 AM EDT Clinical Support [facility] [address] [place] [phone] Christie Mak, RN Other chronic pain (Primary Dx) 08/26/2025 Refill [facility] [address] [place] [address] Sagrario Conley ANP Polyarthralgia 08/26/2025 Refill [facility] [address] [place] [address] Christie Mak, SANDRA Polyarthralgia 08/26/2025 Travel 08/22/2025 Telephone [facility] [address] [place] [phone] Sagrario Conley ANP Med Refill 08/16/2025 Refill [facility] [address] [place] [address] Sagrario Conley ANP Polyarthralgia 08/16/2025 Refill [facility] [address] [place] [address] Christie Mak, SANDRA Polyarthralgia 08/16/2025 Telephone [facility] [address] [place] [address] Sagrario Conley ANP Med Refill 08/09/2025 Refill [facility] [address] [place] [address] Christie Mak RN Polyarthralgia 08/09/2025 Telephone [facility] [address] [place] [address] Sagrario Conley ANP Med Refill 08/03/2025 Refill [facility] [address] [place] [address] Christie Mak, SANDRA Polyarthralgia 08/03/2025 Telephone [facility] [address] [place] [phone] Sagrario Conley, DIRK Appointment Confirmation 08/03/2025 Telephone [facility] [address] [place] [address] Sagrario Conley ANP Med Refill 07/31/2025 Refill [facility] [address] [place] [phone] Sagrario Conley ANP Polyarthralgia 07/29/2025 Telephone [facility] [address] [place] [address] Christei Mak RN 07/29/2025 Results Follow-Up [facility] [address] [place] [address] Sagrario Conley, DIRK CT Hip w/o Contrast Right 07/29/2025 Refill [facility] [address] [place] [address] Sagrario Conley ANP Polyarthralgia 07/19/2025 Telephone [facility] [address] [place] [address] Sagrario Conley ANP November recall 07/15/2025 Refill [facility] [address] [place] [address] Christie Mak RN Polyarthralgia 07/15/2025 Telephone [facility] [address] [place] [address] Sagrario Conley ANP Med Refill 07/09/2025 Refill [facility] [address] [place] [address] Sagrario Conley ANP Essential hypertension 07/06/2025 10:00 AM EDT Office Visit [facility] [address] [place] [address] Luna-Hanson , Sanam, DDS 07/04/2025 Refill [facility] [address] [place] [address] Sagrario Conley ANP Polyarthralgia 06/28/2025 Telephone [facility] [address] [place] [address] Sagrario Conley ANP Appointment Request from Last 3 Months Immunizations Immunization Administration Dates Next Due Influenza Injectable Quadriv alant Preservative Free IIV4 MDCK 08/09/2019 Influenza injectable quadriv alent preservative free 10/29/2023,08/15/2022,08/07/2021,2019,09/10/2018 Influenza, IIV3, injectable 08/17/2015, 4 Influenza, Unspecified 08/19/2008 Influenza, seasonal, injecta ble, preservative free 09/22/2025,09/03/2024,07/14/2009 Moderna Covid-19 Vaccine 12+ 12/26/2021,04/05/20 21,03/08/2021 Pfizer Covid-19 Vaccine 12+ 03/09/2024, 3 Pneumococcal Conjugate PCV 13 08/09/2019 Tdap 08/07/2021,11/17/2009,07/14/2009 Zoster, Recombinant 01/07/2024,03/14/2023 Social History [...] Sign Reading Time Taken Comments Blood Pressure 140/90 09/22/2025 9:56 AM EST Pulse 70 09/22/2025 9:56 AM EST Temperature 36.8 C (98.2 F) 09/22/2025 9:56 AM EST Respiratory Rate 11 09/22/2025 9:56 AM EST Oxygen Saturation 98% 09/22/2025 9:56 AM EST Inhaled Oxygen Concentration - - Weight 83.1 kg (183 lb 2 oz) 09/22/2025 9:56 AM EST Height 177.8 cm (5' 10 ) 09/22/2025 9:56 AM EST Body Mass Index 26.28 09/22/2025 9:56 AM EST Plan of Treatment Upcoming Encounters Date Type Department Care Team (Late st Contact Info) Description 10/11/2025 1:00 PM EST Medication Management [facility] [address] [place] [address] Walt Johnson, PharmD [address] [place] [address] 10/26/2025 10:00 AM EST Clinical Support [facility] [address] [place] [address] Christie Mak, RN [address] [place] [address] Health Maintenance Due Date Last Done Comments CT Colonography 1965 Colonoscopy 1965 Colorectal Cancer Screening 1965 Dental Prophylaxis 1965 FIT DNA/Cologuard 1965 FIT 1965 FOBT 1965 Sigmoidoscopy 1965 Pneumococcal Vaccine: 50+ Years (2 of 2 - PCV20 or PCV21) 08/09/2020 08/09/2019 COVID-19 Vaccine ( season) 2025 03/09/2024, 10/29/2023, 08/05/2022, Additional history exists Dental Oral Exam 2025 03/02/2025 Alcohol/Substance Use Screening 01/10/2026 01/10/2025 Depression Screening 01/10/2026 01/10/2025, 01/10/20 Dental X-Ray: Bitewings 03/03/2026 03/02/20, 01/21/2024, 02/25/2019 Disability Screening 05/19/2026 05/19/2025 SDOH Screening 05/19/2026 05/19/2025 Tobacco Screening 09/22/2026 09/22/2025 Dental X-Ray: Full Mouth 03/03/2028 03/02/2025, 0707/2024 Lipid Panel 07/21/2029 07/21/2024, 08/0 05/2023, 09/17/2021, Additional history exists DTaP/Tdap/Td Vaccines (4 - Td or Tdap) 08/07/2031 08/07/2021, 11/17/2009, 07/14/2009 RSV Patients and Patients Aged 60 years or older (1 - 1-dose 75+ series) 2040 Zoster Vaccines Completed 01/07/2024, 03/14/2023 HIV Screening Completed 03/15/2024, 01/29/2022 Hepatitis C Screening Completed 03/15/2024 , 01/29/2022, 08/23/2020 Influenza Vaccine Completed 09/22/2025, , 10/29/2023, Additional history exists HIB Vaccines Aged Out No longer eligi ble based on patient's age to complete this topic HPV Vaccines Aged Out No longer eligi ble based on patient's age to complete this topic Hepatitis A Vaccines Aged Out No long er eligible based on patient's age to complete this topic Hepatitis B Vaccines Aged Out No long er eligible based on patient's age to complete this topic IPV Vaccines Aged Out No longer eligi ble based on patient's age to complete this topic Meningococcal B Vaccine Aged Out No l onger eligible based on patient's age to complete [...] 09/28/2025 9:08 AM EST Other chronic pain POCT RUBEN-14 URINE DRUG SCREEN Routine 08/26/2025 10:05 AM EDT Other chronic pain DRUG MONITOR, FENTANYL, W/CONF, URINE Routine 08/26/2025 10:[address] HIP WO CONTRAST RIGHT Routine 07/11/2025 10:09 AM EDT Bilateral hip pain CT HIP WO CONTRAST LEFT Routine 07/11/2025 10:06 AM EDT Bilateral hip pain NO CHARGE VISIT Routine 07/06/2025 10:00 AM EDT INTRAORAL - COMPLETE SERIES OF RADIOGRAPHIC IMAGES Routine 03/02/2025 9:30 AM EDT Abrasion of teeth, localized Dental caries Tooth sensitivity to cold COMPREHENSIVE ORAL EVALUATION - NEW OR ESTABLISHED PATIENT Routine 03/02/2025 9:30 AM EDT Abrasion of teeth, localized Dental caries Tooth sensitivity to cold LIPID PANEL, STANDARD Routine 07/21/2024 11:57 AM EDT Healthcare maintenance HEPATITIS C AB W/REFL TO HCV RNA, QN, PCR Routine 03/15/2024 9:34 AM EDT Routine screening for STI (sexually transmitted infection) HIV 1/2 ANTIGEN/ANTIBODY, FOURTH GENERATION W/RFL Routine 03/15/2024 9:34 AM EDT Routine screening for STI (sexually transmitted infection) from Last 3 Months or Most Recently Relevant to Health Maintenance Results * (ABNORMAL) POCT RUBEN-14 Urine Drug Screen (09/28/2025 9:08 AM EST) Only the most recent of2 resultswithin the time period is included. THC Negative Negative Cocaine Screen, Urine Negative [...] Unknown 09/28/2025 9:08 AM EST Narrative Christie Mak, RN - 09/28/2025 9:08 AM EST . Internal Pass Control Lot# [id number] Exp: 09-16-26 us Sagrario Conley [facility] POINT OF CARE TEST ENTER/EDIT OR DERABLES Final Result * Drug Monitoring, Fentanyl, with Confirmation, Urine (08/26/2025 10:00 AM EDT) Fentanyl, Ur NEGATIVE [facility] Comment:CUTOFF 0.5 NG/ML Norfentanyl, Ur 84.7 [facility] Comment:CUTOFF 0.5 NG/ML Fentanyl Note SEE NOTE [facility] Comment:This drug testing is for medical treatment only. Analysiswas performed as non-forensic testing and these resultsshould be used only by healthcare providers to renderdiagnosis or treatment, or to monitor progress of medicalconditions. Fentanyl Notes: Norfentanyl detected isconsistent with the use of the drug Fentanyl.LDT Notes: Confirmation tests were developed and theiranalytical performance characteristics have been determinedby [employer]. It has not been cleared or approved bythe FDA. This assay has been validated pursuant to the CLIAregulations and is used for clinical purposes. HealthcareProviders needing Interpretation assistance, please contactus at [phone] ( ) M-F, 8am to 10pm ESTThis drug testing is for medical treatment only. Analysiswas performed as non-forensic testing and these resultsshould be used only by healthcare providers to renderdiagnosis or treatment, or to monitor progress of medicalconditions. 08/26/2025 10:0 0 AM EDT 08/26/2025 6:24 PM EDT us Sagrario Conley [facility] URINE ORDERABLES Final Resul t [facility] [address] [place] [phone] * CT Hip w/o Contrast Right (07/11/2025 10:09 AM EDT) Anatomical Region Laterality Modality Lower Extremities, Hip Right Computed Tomography 07/11/2025 10:0 9 AM EDT Narrative 07/11/2025 10:11 AM EDT [place] [address] CT Scan Report Signed Patient: Justus Pedroza MR#: [id number] : 1965 Acct:[id number] Age/Sex: 59 / M ADM Date: 07/09/25 Loc: HO.CT Attending Dr: Sagrario Conley [employer] Ordering Physician: SAGRARIO CONLEY NP Date of Service: 07/09/25 Procedure(s): CT hip RT wo IV con Accession Number(s): [id number] cc: SAGRARIO CONLEY NP Report Number: [id number]: Total DLP = 361.00 mGy-cm CLINICAL HISTORY: BILATERAL HIP PAIN Exam: CT of the right hip without intravenous contrast. Comparison: Radiographs August 04, [address] november 24, 2022. Findings: Bony alignment of the right hip joint is anatomic. No fracture or erosion. Minimal to mild degenerative change of the right hip joint as seen on the patient's prior imaging studies. No definitive hip joint effusion is seen. No muscle atrophy of the muscles in the right hemipelvis and right proximal thigh. Right-sided pubic rami are intact. Mild right sacroiliac joint DJD. Stimulator device is seen within the subcutaneous fat over the right iliac bone. Impression: Minimal to mild right hip DJD. If the patient has persistent or worsening symptoms, consider MRI of the right hip for further evaluation. This document has been electronically signed by: Pasha Corona MD on 07/11/2025 10:09:22 Dictated By: Pasha Corona MD Signed By: <Electronically signed by Pasha Corona MD in OV> 07/11/25 1010 DD/ 1009 TD/TT: 07/11/25 1009 Milk Collector: Procedure Note Donotuseinterpreter, Image - 07/11/[address] [address] [address] Scan Report Signed Patient: Justus Pedroza WMR#: [id number] : 1965Acct:[id number] Age/Sex: 59 / MADM Date: 07/09/25 Loc: HO.CT Attending Dr: Sagrario Conley NP Ordering Physician: SAGRARIO CONLEY NP Date of Service: 07/09/25 Procedure(s): CT hip RT wo IV con Accession Number(s): [id number] cc: SAGRARIO CONLEY NP Report Number: [id number]: Total DLP = 361.00 mGy-cm CLINICAL HISTORY: BILATERAL HIP PAIN Exam: CT of the right hip without intravenous contrast. Comparison: Radiographs August 04, [address] november 24, 2022. Findings: Bony alignment of the right hip joint is anatomic. No fracture or erosion. Minimal to mild degenerative change of the right hip joint as seen on the patient's prior imaging studies. No definitive hip joint effusion is seen. No muscle atrophy of the muscles in the right hemipelvis and right proximal thigh. Right-sided pubic rami are intact. Mild right sacroiliac joint DJD. Stimulator device is seen within the subcutaneous fat over the right iliac bone. Impression: Minimal to mild right hip DJD. If the patient has persistent or worsening symptoms, consider MRI of the right hip for further evaluation. This document has been electronically signed by: Pasha Corona MD on 07/11/2025 10:09:22 Dictated By: Pasha Corona MD Signed By: <Electronically signed by Pasha Corona MD in OV> 07/11/25 1010 DD/ 1009 TD/TT: 07/11/25 1009 Milk Collector: Sagrario Conley ANP IMG CT PROCEDURES Final Result * CT HIP w/o Contrast Left (07/11/2025 10:06 AM EDT) Anatomical Region Laterality Modality Lower Extremities, Hip Left Computed Tomography 07/11/2025 10:0 6 AM EDT Narrative 07/11/2025 10:08 AM EDT [place] [address] CT Scan Report Signed Patient: Justus Pedroza MR#: [id number] : 1965 Acct:[id number] Age/Sex: 59 / M ADM Date: 07/09/25 Loc: HO.CT Attending Dr: Sagrario Conley NP Ordering Physician: SAGRARIO CONLEY NP Date of Service: 07/09/25 Procedure(s): CT hip LT wo IV con Accession Number(s): [id number] cc: SAGRARIO CONLEY NP Report Number: [id number]: Total DLP = 367.00 mGy-cm CLINICAL HISTORY: BILATERAL HIP PAIN Exam: CT of the left hip without intravenous contrast. Comparison: Radiographs August 04, [address] november 24, 2022. Findings: Bony alignment of the left hip joint is anatomic. No fracture or erosion. Minor degenerative change of the left hip joint as seen on the patient's prior imaging studies. No definitive left hip joint effusion is seen. No muscle atrophy of the muscles in the left hemipelvis and left proximal thigh. Left-sided pubic rami are intact. Vascular calcification of the left external iliac artery. Mild left sacroiliac joint DJD. Impression: Minor left hip DJD. If the patient has persistent or worsening symptoms, consider MRI of the left hip for further evaluation. This document has been electronically signed by: Pasha Corona MD on 07/11/2025 10:06:33 Dictated By: Pasha Corona MD Signed By: <Electronically signed by Pasha Corona MD in OV> 07/11/25 1007 DD/ 1006 TD/TT: 07/11/25 1006 Milk Collector: Procedure Note Donotuseinterpreter, Image - 07/11/[address] [place] [address] [address] Scan Report Signed Patient: Justus Pedroza R#: [id number] : 1965Acct:[id number] Age/Sex: 59 / MADM Date: 07/09/25 Loc: HO.CT Attending Dr: Sagrario Conley NP Ordering Physician: SAGRARIO CONLEY NP Date of Service: 07/09/25 Procedure(s): CT hip LT wo IV con Accession Number(s): [id number] cc: SAGRARIO CONLEY NP Report Number: [id number]: Total DLP = 367.00 mGy-cm CLINICAL HISTORY: BILATERAL HIP PAIN Exam: CT of the left hip without intravenous contrast. Comparison: Radiographs August 04, [address] november 24, 2022. Findings: Bony alignment of the left hip joint is anatomic. No fracture or erosion. Minor degenerative change of the left hip joint as seen on the patient's prior imaging studies. No definitive left hip joint effusion is seen. No muscle atrophy of the muscles in the left hemipelvis and left proximal thigh. Left-sided pubic rami are intact. Vascular calcification of the left external iliac artery. Mild left sacroiliac joint DJD. Impression: Minor left hip DJD. If the patient has persistent or worsening symptoms, consider MRI of the left hip for further evaluation. This document has been electronically signed by: Pasha Corona MD on 07/11/2025 10:06:33 Dictated By: Pasha Corona MD Signed By: <Electronically signed by Pasha Corona MD in OV> 07/11/25 1007 DD/ 1006 TD/TT: 07/11/25 1006 Milk Collector: us Sagrario [facility] IM CT PROCEDURES Final Result * (ABNORMAL) Lipid Panel, Standard (07/21/2024 11:57 AM EDT) Triglycerides 94 <150 mg/dL [facility] Comment:Desirable Triglyceri de: less than 150 mg/dLBorderline High Triglyceride 150-199 mg/dLHigh Triglyceride: 200-499 mg/dLVery High Triglyceride: greater than or equal to 5OO mg/dL Cholesterol 172 <200 mg/dL [facility] Comment:Desirable Cholestero l: less than 200 mg/dLBorderline High Cholesterol: 200-239 mg/dLHigh Cholesterol: greater than 239 mg/dL LDL Cholesterol Calculated 101(H) <100 mg/dL [facility] Comment:Desirable LDL: less than 100 mg/dLNear Optimal/Above Optimal LDL: 110- 129 mg/dLBorderline High LDL: 130-159 mg/dLHigh LDL: 160-189 mg/dLVery High LDL: greater than or equal to 190 mg/dL HDL Cholesterol 53 >40 mg/dL [facility] Comment:Desirable HDL: great er than 40 mg/dL Note: This HDL assay may give artificially low results in patients with liver disease. Blood Venous blood specimen / Unknown 07/21/2024 11:57 AM EDT 07/21/2024 1:06 PM EDT Sagrario [facility] BLOOD ORDERABLES Final Resul t Performing Organization Address [facility] de Phone Number [facility] [address] [place] [phone] * Hepatitis C Antibody with Reflex to HCV, RNA, Quantitative, Real-Time PCR (03/15/2024 9:34 AM EDT) Hepatitis C Antibody Nonreactive Nonreactive [facility] Comment:Antibodies to HCV no t detected; does not exclude early acuteHCV infection. Blood Venous blood specimen / Unknown 03/15/2024 9:34 AM EDT 03/15/2024 11:32 AM EDT Sagrario [facility] BLOOD ORDERABLES Final Resul t Performing Organization Address [facility] de Phone Number [facility] [address] [place] [phone] * HIV-1/2 Antigen and Antibodies, Fourth Generation, with Reflexes (03/15/2024 9:34 AM EDT) HIV AB/AG Nonreactive Nonreactive [facility] Comment:HIV-1 p24 Ag and/or HIV-1/HIV-2 Ab not detected.A test result that is nonreactive does not exclude thepossibility of exposure to or infection with HIV-1 and/orHIV-2. Nonreactive results in this assay for individualswith prior exposure to HIV-1 and/or HIV-2 may be due toantigen and antibody levels that are below the limit ofdetection of this assay.The [employer]ex[employer] HIV Ag/Ab Combo assay result andsupplemental assay results should be interpreted inconjunction with the patient's clinical presentation,history and other laboratory results. If the results areinconsistent with clinical evidence, additional testing issuggested to confirm the result. Blood Venous blood specimen / Unknown 03/15/2024 9:34 AM EDT 03/15/2024 11:32 AM EDT Sagrario Conley DIRK LAB BLOOD ORDERABLES Final Resul t [facility] [address] [place] [address] [phone] from Last 3 Months or Most Recently Relevant to Health Maintenance Insurance [facility] < 65 [facility] Care Teams Railways Assistant Relationship Specialty Start Date End Date Sagrario Conley ANP [address] [place] [address] PCP - General Family Medicine 07/06/21
--- OUTSIDE RECORDS SUMMARY | 2025-09-28 18:32 | XMS_ITS | Encounter Summary ---
Author Organization [employer] Address [address] [place] [address] 7 [place] [address] Care Team Providers Care Tire Bladder Maker Name Role Phone Kayleigh Drake Primary Care Provider [phone] Reason for Visit * Reason Onset Date Comments Appointment Confirmation 08/03/2025 Encounter Details Date Type Department Care Team ([facility] st Contact Info) Description 08/03/2025 Telephone [facility] MEDICINE [address] [place] [address] Kayleigh Drake ANP [address] [place] [address] Appointment Confirmation Social History Tobacco Use Types Packs/Day Years [...] Telephone Encounter - Eden Kearns - 08/03/2025 9:21 AM EDT Tc from pt requesting a call back in regard of 08/26/25 appt, pt wolf like to know in what locationthe appt would be. Contact pt at [phone] documented in this encounter Plan of Treatment Upcoming Encounters Date Type Department Care Team (Late st Contact Info) Description 10/11/2025 1:00 PM EST Medication Management [facility] MEDICINE [address] [place] [address] Walt Johnson, PharmD [address] [place] [address] 10/26/2025 10:00 AM EST Clinical Support [facility] MED [facility] PEDS [address] [place] [address] Christie Mak, SANDRA [address] [place] [address] documented as of this encounter Visit Diagnoses Not on filedocumented in this encounter Additional Health Concerns Assessment Noted Time PHQ-9 Depression Total Score: 6 01/10/20 2:32 PM EST documented as of this encounter Care Teams Tire Bladder Maker Relationship Specialty Start Date End Date Kayleigh Drake ANP [address] [place] [address] PCP - General Family Medicine 07/06/21 documented as of this encounter
--- OUTSIDE RECORDS SUMMARY | 2025-09-28 18:32 | XMS_ITS | Encounter Summary ---
Author Organization [employer] Address [address] [place] [address] 7t [place] [address] Care Team Providers Care Framing Carpenter Name Role Phone Kayleigh Drake Primary Care Provider [phone] Reason for Visit * Reason Onset Date Comments Appointment Request 06/22/2024 Encounter Details Date Type Department Care Team ([facility] st Contact Info) Description 06/22/2024 Telephone [facility] MEDICINE [address] [place] [address] Kayleigh Drake ANP [address] [place] [address] Appointment Request Social History Tobacco Use Types [...] from 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 [phone] documented in this encounter Plan of Treatment Upcoming Encounters Date Type Department Care Team (Late st Contact Info) Description 10/11/2025 1:00 PM EST Medication Management [facility] MEDICINE [address] [place] [address] Walt Johnson, PharmD [address] [place] [address] 10/26/2025 10:00 AM EST Clinical Support [facility] MED & PEDS [address] [place] [address] Christie Mak, RN [address] [place] [address] documented as of this encounter Visit Diagnoses Not on filedocumented in this encounter Additional Health Concerns Assessment Noted Time PHQ-9 Depression Total Score: 12 024 9:49 AM EDT documented as of this encounter Care Teams Framing Carpenter Relationship Specialty Start Date End Date Kayleigh Drake ANP [address] [place] [address] PCP - General Family Medicine 07/06/21 documented as of this encounter
--- OUTSIDE RECORDS SUMMARY | 2025-09-28 18:32 | XMS_ITS | Encounter Summary ---
Author Organization [employer] Address [address] [facility] 7t [place] [address] Care Team Providers Care Crimping Machine Operator Name Role Phone Kayleigh Drake DIRK Primary Care Provider [phone] Reason for Visit * Reason Comments Med Refill Encounter Details Date Type Department Care Team ([facility] st Contact Info) Description 08/19/2024 Refill [facility] ADULT DENTAL [address] [place] [address] Mauri Bejarano DDS [address] [place] [address] Social History Tobacco Use Types Packs/Day Years [...] Description 10/11/2025 1:00 PM EST Medication Management [facility] MEDICINE [address] [place] [address] Walt Johnson, PharmD [address] [place] [address] 10/26/2025 10:00 AM EST Clinical Support [facility] CH[facility] MED & PEDS [address] [place] [address] Christie Mak, RN [address] [place] [address] documented as of this encounter Visit Diagnoses Not on filedocumented in this encounter Additional Health Concerns Assessment Noted Time PHQ-9 Depression Total Score: 12 024 9:49 AM EDT documented as of this encounter Care Teams Crimping Machine Operator Relationship Specialty Start Date End Date Kayleigh Drake ANP [address] [place] [address] PCP - General Family Medicine 07/06/21 documented as of this encounter
--- OUTSIDE RECORDS SUMMARY | 2025-09-28 18:32 | XMS_ITS | Encounter Summary ---
Author Organization [employer] Address [address] [place] [address] 7t [place] [address] Care Team Providers Care Payroll Associate Name Role Phone Kayleigh Drake DIRK Primary Care Provider [phone] Encounter Details Date Type Department Care Team ([facility] Contact Info) Description 09/28/2025 Telephone [facility] [address] [place] [address] Christie Mak, SANDRA 505 [place] [address] Social History Tobacco Use Types Packs/Day Years [...] encounter Miscellaneous Notes * Telephone Encounter - Christie Mak RN - 09/28/2025 9:11 AM EST 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 Utox +FTY again. Pt still denies any Fentanyl use. Sending it out to the lab for confirmation. Next MARKETING OUTREACH COORDINATOR appointment in 1 mo, 10/26/25. documented in this encounter Plan of Treatment Upcoming Encounters Date Type Department Care Team (Late st Contact Info) Description 10/11/2025 1:00 PM EST Medication Management [facility] MEDICINE [address] [place] [address] Walt Johnson, PharmD 230 [place] [address] 10/26/2025 10:00 AM EST Clinical Support [facility] CH[facility] MED & PEDS [address] [place] [address] Christie Mak, SANDRA 505 [place] [address] documented as of this encounter Visit Diagnoses Not on filedocumented in this encounter Additional Health Concerns Assessment Noted Time PHQ-9 Depression Total Score: 6 01/10/20 2:32 PM EST documented as of this encounter Care Teams Payroll Associate Relationship Specialty Start Date End Date Kayleigh Drake ANP [address] [place] [address] PCP - General Family Medicine 07/06/21 documented as of this encounter
--- OUTSIDE RECORDS SUMMARY | 2025-09-28 18:32 | XMS_ITS | Encounter Summary ---
Author Organization [employer] Address [address] [place] [address] Care Team Providers Care Variety Lathe Operator Name Role Phone Kayleigh Drake Primary Care Provider [phone] Reason for Visit * Reason Comments Med Refill Encounter Details Date Type Department Care Team (Late st Contact Info) Description 11/14/[address] [facility] 230 [place] [address] Kayleigh Drake ANP 230 [place] [address] Polyarthralgia Social History Tobacco Use Types Packs/Day [...] Description 10/11/2025 1:00 PM EST Medication Management [facility] MEDICINE [address] [place] [address] Walt Johnson, PharmD 230 [place] [address] 10/26/2025 10:00 AM EST Clinical Support [facility] CHC MED & PEDS [address] [place] [address] Christie Mak, RN 505 [place] [address] documented as of this encounter Visit Diagnoses Diagnosis Polyarthralgia Pain in joint, multiple sites documented in this encounter Care Teams Variety Lathe Operator Relationship Specialty Start Date End Date Kayleigh Drake ANP 230 [place] [address] PCP - General Family Medicine 07/06/21 documented as of this encounter
--- OUTSIDE RECORDS SUMMARY | 2025-09-28 18:32 | XMS_ITS | Encounter Summary ---
Author Organization [employer] Address [address] [place] [address] 7 [place] [address] Care Team Providers Care Diagnostics Sales Developer Name Role Phone Kayleigh Drake Primary Care Provider [phone] Reason for Visit * Reason Comments Med Refill Encounter Details Date Type Department Care Team (Late Contact Info) Description 06/25/2023 Refill [facility] MEDICINE [address] [place] [address] Kayleigh Drake ANP [address] [place] [address] Polyarthralgia Social History Tobacco Use Types Packs/Day [...] Description 10/11/2025 1:00 PM EST Medication Management [facility] MEDICINE [address] [place] [address] Walt Johnson, PharmD [address] [place] [address] 10/26/2025 10:00 AM EST Clinical Support [facility] CHC MED & PEDS 505 [place], [place] [phone] Christie Mak, SANDRA 505 [place] [address] documented as of this encounter Visit Diagnoses Diagnosis Polyarthralgia Pain in joint, multiple sites documented in this encounter Care Teams Diagnostics Sales Developer Relationship Specialty Start Date End Date Kayleigh Drake ANP [address] [place] [address] PCP - General Family Medicine 07/06/21 documented as of this encounter
--- OUTSIDE RECORDS SUMMARY | 2025-09-28 18:32 | XMS_ITS | Encounter Summary ---
Author Organization [employer] Address [address] [place] [address] 7t [place] [address] Care Team Providers Care Investment Recovery Technician Name Role Phone Kayleigh Drake Primary Care Provider [phone] Reason for Visit * Reason Onset Date Comments Med Refill 08/16/2025 Encounter Details Date Type Department Care Team ([facility] st Contact Info) Description 08/16/2025 Telephone [facility] MEDICINE [address] [place] [address] Kayleigh Drake ANP [address] [place] [address] Med Refill Social History Tobacco Use Types [...] encounter Miscellaneous Notes * Telephone Encounter - Jas Sen - 08/16/2025 8:37 AM EDT TC from pt requesting medication refill. Medications needing refill : oxyCODONE-acetaminophen (Percocet) 5-325 MG tablet To be sent to: [facility] - [place], [place] - [address] [place] [address] documented in this encounter Plan of Treatment Upcoming Encounters Date Type Department Care Team ([facility] st Contact Info) Description 10/11/2025 1:00 PM EST Medication Management [facility] MEDICINE [address] [place] [address] Walt Johnson, PharmD 230 [place] [address] 10/26/2025 10:00 AM EST Clinical Support [facility] MED & PEDS [address] [place] [address] Christie Mak, SANDRA [address] [place] [address] documented as of this encounter Visit Diagnoses Not on filedocumented in this encounter Additional Health Concerns Assessment Noted Time PHQ-9 Depression Total Score: 6 01/10/20 2:32 PM EST documented as of this encounter Care Teams Investment Recovery Technician Relationship Specialty Start Date End Date Kayleigh Drake ANP [address] [place] [address] PCP - General Family Medicine 07/06/21 documented as of this encounter
--- OUTSIDE RECORDS SUMMARY | 2025-09-28 18:32 | XMS_ITS | Encounter Summary ---
Author Organization [employer] Address [address] [place] [address] 7 [place] [address] Care Team Providers Care Heel Room Supervisor Name Role Phone Kayleigh Drake Primary Care Provider [phone] Reason for Visit * Reason Comments Med Refill Encounter Details Date Type Department Care Team (Late Contact Info) Description 07/24/2023 Refill [facility] MEDICINE [address] [place] [address] Kayleigh Drake ANP [address] [place] [address] Polyarthralgia Social History Tobacco Use Types Packs/Day [...] Description 10/11/2025 1:00 PM EST Medication Management [facility] MEDICINE [address] [place] [address] Walt Johnson, PharmD 230 [place] [address] 10/26/2025 10:00 AM EST Clinical Support [facility] CHC MED & PEDS 505 [place], [place] [phone] Christie Mak, SANDRA 505 [place] [address] documented as of this encounter Visit Diagnoses Diagnosis Polyarthralgia Pain in joint, multiple sites documented in this encounter Care Teams Heel Room Supervisor Relationship Specialty Start Date End Date Kayleigh Drake ANP [address] [place] [address] PCP - General Family Medicine 07/06/21 documented as of this encounter
--- OUTSIDE RECORDS SUMMARY | 2025-09-28 18:32 | XMS_ITS | Encounter Summary ---
Author Organization [employer] Address [address] [place] [address] 7t [place] [address] Care Team Providers Care Marketing Admin Name Role Phone Kayleigh Drake Primary Care Provider [phone] Reason for Visit * Reason Comments Med Refill Encounter Details Date Type Department Care Team ([facility] Contact Info) Description 08/16/2023 Refill [facility] MEDICINE [address] [place] [address] Estephania Mckeon MD [address] [place] [address] Essential hypertension Social History Tobacco Use Types [...] Department Care Team (Late Contact Info) Description 10/11/2025 1:00 PM EST Medication Management [facility] MEDICINE [address] [place] [address] Walt Johnson, PharmD 230 [place] [address] 10/26/2025 10:00 AM EST Clinical Support [facility] MED & PEDS [address] [place], [place] [phone] Christie Mak, SANDRA 505 [place] [address] documented as of this encounter Visit Diagnoses Diagnosis Essential hypertension Unspecified essential hypertension documented in this encounter Care Teams Marketing Admin Relationship Specialty Start Date End Date Kayleigh Drake ANP [address] [place] [address] PCP - General Family Medicine 07/06/21 documented as of this encounter
--- OUTSIDE RECORDS SUMMARY | 2025-09-28 18:33 | XMS_ITS | Encounter Summary ---
Author Organization [employer] Address [address] [place] [address] 7 [place] [address] Care Team Providers Care Form Drafter Name Role Phone Kayleigh Drake Primary Care Provider [phone] Reason for Visit * Reason Onset Date Comments Appointment Request 09/22/2025 Encounter Details Date Type Department Care Team ([facility] st Contact Info) Description 09/22/2025 Telephone [facility] MEDICINE [address] [place] [address] Kayleigh Drake ANP 230 [place] [address] Appointment Request Social History Tobacco Use Types [...] * Telephone Encounter - Henri Beto - 09/22/2025 9:11 AM EST Tc from 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 Please contact pt at [phone]. documented in this encounter Plan of Treatment Upcoming Encounters Date Type Department Care Team (Late st Contact Info) Description 10/11/2025 1:00 PM EST Medication Management [facility] MEDICINE 230 [place] [address] Walt Johnson, PharmD 230 [place] [address] 10/26/2025 10:00 AM EST Clinical Support [facility] CHC MED & PEDS [address] [place] [address] Christie Mak, RN 505 [place] [address] documented as of this encounter Visit Diagnoses Not on filedocumented in this encounter Additional Health Concerns Assessment Noted Time PHQ-9 Depression Total Score: 6 01/10/20 25 2:32 PM EST documented as of this encounter Care Teams Form Drafter Relationship Specialty Start Date End Date Kayleigh Drake ANP [address] [place] [address] PCP - General Family Medicine 07/06/21 documented as of this encounter
--- OUTSIDE RECORDS SUMMARY | 2025-09-28 18:33 | XMS_ITS | Encounter Summary ---
Author Organization [employer] Address [address] [place] [address] 7 [place] [address] Care Team Providers Care Automobile Mechanic Apprentice Name Role Phone Kayleigh Drake Primary Care Provider [phone] Reason for Visit * Reason Comments Med Refill Encounter Details Date Type Department Care Team ([facility] Contact Info) Description 06/12/2023 Refill [facility] MEDICINE 230 [place], [place] [phone] Estephania Mckeon MD 230 [place], [place] [phone] Other chronic pain Social History Tobacco Use [...] Upcoming Encounters Date Type Department Care Team ([facility] Contact Info) Description 10/11/2025 1:00 PM EST Medication Management [facility] MEDICINE [address] [place] [address] Walt Johnson, PharmD 230 [place] [address] 10/26/2025 10:00 AM EST Clinical Support [facility] CH[facility] MED & PEDS [address] [place] [address] Christie Mak, RN 505 [place] [address] documented as of this encounter Visit Diagnoses Diagnosis Other chronic pain documented in this encounter Care Teams Automobile Mechanic Apprentice Relationship Specialty Start Date End Date Kayleigh Drake ANP [address] [place] [address] PCP - General Family Medicine 07/06/21 documented as of this encounter
--- OUTSIDE RECORDS SUMMARY | 2025-09-28 18:33 | XMS_ITS | Encounter Summary ---
Author Organization [employer] Address [address] [facility] 7t [place] [address] Care Team Providers Care Baking Assistant Name Role Phone Kayleigh Drake Primary Care Provider [phone] Encounter Details Date Type Department Care Team (Latest Contact Info) Description 09/28/2025 Travel Social History Tobacco Use Types Packs/Day Years [...] PM EST Medication Management [facility] MEDICINE [address] [place] [address] Walt Johnson, PharmD 230 [place] [address] 10/26/2025 10:00 AM EST Clinical Support [facility] MED & PEDS 505 [place], [place] [phone] Christie Mak, RN 505 [place] [address] documented as of this encounter Visit Diagnoses Not on filedocumented in this encounter Additional Health Concerns Assessment Noted Time PHQ-9 Depression Total Score: 6 01/10/20 25 2:32 PM EST documented as of this encounter Care Teams Baking Assistant Relationship Specialty Start Date End Date Kayleigh Drake ANP 230 [place] [address] PCP - General Family Medicine 07/06/21 documented as of this encounter
--- OUTSIDE RECORDS SUMMARY | 2025-09-28 18:33 | XMS_ITS | Encounter Summary ---
Author Organization [employer] Address [address] [place] [address] 7t [place] [address] Care Team Providers Care Insole Department Worker Name Role Phone Kayleigh Drake Primary Care Provider [phone] Reason for Visit * Reason Comments Med Refill Encounter Details Date Type Department Care Team ([facility] st Contact Info) Description 11/05/2024 Refill [facility] MEDICINE 230 [place] [address] Kayleigh Drake ANP [address] [place] [address] Polyarthralgia Social History Tobacco Use Types Packs/Day [...] Description 10/11/2025 1:00 PM EST Medication Management [facility] MEDICINE [address] [place] [address] Walt Johnson, PharmD [address] [place] [address] 10/26/2025 10:00 AM EST Clinical Support [facility] CHC MED & PEDS [address] [place], [place] [phone] Christie Mak, RN 505 [place] [address] documented as of this encounter Visit Diagnoses Diagnosis Polyarthralgia Pain in joint, multiple sites documented in this encounter Additional Health Concerns Assessment Noted Time PHQ-9 Depression Total Score: 12 024 9:49 AM EDT documented as of this encounter Care Teams Insole Department Worker Relationship Specialty Start Date End Date Kayleigh Drake ANP [address] [place] [address] PCP - General Family Medicine 07/06/21 documented as of this encounter
--- OUTSIDE RECORDS SUMMARY | 2025-09-28 18:33 | XMS_ITS | Encounter Summary ---
Author Organization [employer] Address [address] [place] [address] 7 [place] [address] Care Team Providers Care Pressure Test Operator Name Role Phone Kayleigh Drake Primary Care Provider [phone] Reason for Visit * Reason Onset Date Comments Appointment Request 06/09/2025 Encounter Details Date Type Department Care Team ([facility] st Contact Info) Description 06/09/2025 Telephone [facility] MEDICINE 230 [place] [address] Kayleigh Drake ANP 230 [place] [address] Appointment Request Social History Tobacco Use Types [...] * Telephone Encounter - Henri Beto - 06/09/2025 8:48 AM EDT Tc from pt requesting to 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 Please contact pt at [phone]. documented in this encounter Plan of Treatment Upcoming Encounters Date Type Department Care Team (Late st Contact Info) Description 10/11/2025 1:00 PM EST Medication Management [facility] MEDICINE [address] [place] [address] Walt Johnson, PharmD 230 [place] [address] 10/26/2025 10:00 AM EST Clinical Support [facility] CHC MED & PEDS [address] [place] [address] Christie Mak, RN 505 [place] [address] documented as of this encounter Visit Diagnoses Not on filedocumented in this encounter Additional Health Concerns Assessment Noted Time PHQ-9 Depression Total Score: 6 01/10/20 25 2:32 PM EST documented as of this encounter Care Teams Pressure Test Operator Relationship Specialty Start Date End Date Kayleigh Drake ANP 230 [place] [address] PCP - General Family Medicine 07/06/21 documented as of this encounter
--- OUTSIDE RECORDS SUMMARY | 2025-09-28 18:33 | XMS_ITS | Encounter Summary ---
Author Organization [employer] Address [address] [facility] 7t [place] [address] Care Team Providers Care Orchard Sprayer Name Role Phone Kayleigh Drake DIRK Primary Care Provider [phone] Encounter Details Date Type Department Care Team ([facility] Contact Info) Description 10/27/2024 Telephone [facility] [address] [place] [address] Rene, Trina, OD [address] [place] [address] Social History Tobacco Use Types Packs/Day Years [...] Description 10/11/2025 1:00 PM EST Medication Management [facility] MEDICINE 230 [place] [address] Walt Johnson, PharmD 230 [place] [address] 10/26/2025 10:00 AM EST Clinical Support [facility] CH[facility] MED & PEDS [address] [place] [address] Christie Mak, RN 505 [place] [address] documented as of this encounter Visit Diagnoses Not on filedocumented in this encounter Additional Health Concerns Assessment Noted Time PHQ-9 Depression Total Score: 12 024 9:49 AM EDT documented as of this encounter Care Teams Orchard Sprayer Relationship Specialty Start Date End Date Kayleigh Drake ANP 230 [place] [address] PCP - General Family Medicine 07/06/21 documented as of this encounter
--- OUTSIDE RECORDS SUMMARY | 2025-09-28 18:33 | XMS_ITS | Encounter Summary ---
Author Organization [employer] Address [address] [place] [address] [address] [place] [address] Care Team Providers Care Invoice Checker Name Role Phone Kayleigh Drake Primary Care Provider [phone] Reason for Visit * Reason Comments Med Refill Encounter Details Date Type Department Care Team ([facility] Contact Info) Description 02/06/2023 Refill [facility] [address] [place], [place] [phone] Estephania Mckeon MD [address], [place] [phone] Polyarthralgia Social History Tobacco Use Types Packs/Day [...] Upcoming Encounters Date Type Department Care Team ([facility] Contact Info) Description 10/11/2025 1:00 PM EST Medication Management [facility] [address] [place] [phone] Walt Johnson, PharmD [address] [place] [address] 10/26/2025 10:00 AM EST Clinical Support [facility] [address] [place] [address] Christie Mak, RN [address] [place] [address] documented as of this encounter Visit Diagnoses Diagnosis Polyarthralgia Pain in joint, multiple sites documented in this encounter Care Teams Invoice Checker Relationship Specialty Start Date End Date Kayleigh Drake ANP [address] [place] [phone] PCP - General Family Medicine 07/06/21 documented as of this encounter
[2025-10-06 09:05] LABS: Fentanyl, Ur 19.4
[2025-10-06 09:06] LABS: Norfentanyl, Ur 0.7
== END 2025-09-28 15:17 | disposition home or self-care (01) ==
LOC: HO.LNP 15:16
PROVIDERS: Visit Provider Nurse Practitioner Primary Care
DX: G89.29 Other chronic pain (principal)
CPT/HCPCS: 80354

== ENCOUNTER 2025-10-24 08:45 | Outpatient (REF) | payer OTHER, SELFPAY ==
--- NOTE | ~2025-10-24 | XR_ITS ---
EXAMINATION: XR BILATERAL HIPS WITH AP PELVIS CLINICAL INFORMATION: M25.559 - Pain in unspecified hip COMPARISON: CT from July 09, 2025 TECHNIQUE: AP view of the pelvis and single views of each hip were obtained. FINDINGS: A generator projects over the right hemipelvis and a single wire traverses toward the cephalad midline. Acetabular roofs demonstrate minute marginal osteophytes. There are also minute marginal osteophytes involving the bilateral fovea that were better demonstrated on recent CT. Minimal marginal osteophyte formation is seen involving the right femoral head. No chondrocalcinosis is identified. Joint spaces are preserved. XR/XR hip BI w PEL1V IMPRESSION: Subtle changes of osteoarthritis involving both hip joints. Electronically signed by: Abe Ceja MD 10/24/2025 11:15 AM LUIS M
== END 2025-10-24 08:46 | disposition home or self-care (01) ==
LOC: HO.HOSX 08:45
PROVIDERS: Visit Provider Physician Assistant
DX: M70.61 Trochanteric bursitis, right hip (principal)
CPT/HCPCS: 73521

== ENCOUNTER 2025-10-24 10:57 | Outpatient (AMB) | payer OTHER, SELFPAY ==
[2025-10-24 11:07] VITALS: BMI 25.2
--- NOTE | 2025-10-24 11:07 | MHC.OFFVIS ---
Vital Signs 10/24/25 11:07 Height 5 ft 10.5 in Weight 178 lb BMI 25.2 Intake Visit Reasons: OV-B/L Hip Pain Intake Note: Justus 60 yr old male presents today wit his partner Gloria, for his follow up visit for his bilateral, right is worse. Patient was last seen with Dr. Reza in August of 2023, he was recommended an evaluation with rheumatology, no orthopedic intervention at that time. He was advise to stay active. Today patient states he is trying his best to stay active, he continues to have radiating pain from his right hip down his leg. States his knee gives out due to painand weakness. Allergies NSAIDS (Non-Steroidal Anti-Inflamma (Nsaids) Allergy (Mild, Verified 10/24/25 11:12) RASH Penicillins Allergy (Mild, Verified 10/24/25 11:12) RASH LAURA Inhibitors Allergy (Unknown, Verified 10/24/25 11:12) Rash altretamine Allergy (Unknown, Verified 10/24/25 11:12) Unknown cyclobenzaprine (CYCLOBENZAPRINE) Allergy (Unknown, Verified 10/24/25 11:12) UNKNOWN ibuprofen Allergy (Unknown, Verified 10/24/25 11:12) GI upset, STOMACH PAIN AND VOMITING lisinopril (LISINOPRIL) Allergy (Unknown, Verified 10/24/25 11:12) UNKNOWN, swelling, rash, SEVERE LEG EDEMA naproxen Allergy (Unknown, Verified 10/24/25 11:12) Unknown penicillin V Allergy (Unknown, Verified 10/24/25 11:12) rash tramadol (From ULTRAM) Allergy (Unknown, Verified 10/24/25 11:12) SEIZURES meloxicam Adverse Reaction (Unknown, Verified 10/24/25 11:12) Vomiting Motrin Allergy (Unknown, Uncoded 10/24/25 11:12) STOMACH PAIN AND VOMITING Medication List - Last Reconciled 10/24/25 by Ismael Mooney PA-C amitriptyline 50 mg PO BEDTIME atenolol 50 mg PO DAILY atorvastatin 20 mg PO DAILY capsaicin 0.1% (Arthritis Pain Relief (capsaicin)) 1 appl topical BID cholecalciferol (vitamin D3) 50 mcg PO DAILY diclofenac epolamine 1.3% 1 patch topical BID diclofenac sodium 1% 1 ea topical QID kndmqssq-mrn-UV-lycopen-lutein 0.4 mg-300 mcg- 250 mcg (Cerovite Senior) 1 tab PO DAILY naloxone 4 mg/actuation (Narcan) 4 mg intranasal Q2M PRN nifedipine ER 60 mg PO DAILY olmesartan 20 mg PO DAILY oxycodone-acetaminophen 5-325 mg (Percocet) 1 tab PO TID PRN HPI HPI OV-B/L Hip Pain: Details: 60 yo male presents to the office today for bilat hip pain. Right hip is worse than the left. He states the pain goes down the leg . He states when the pain comes it causes him to lock up and he cannot move. It has caused him to fall. He denies numbness or tinging down the leg. He states the pain is located along the side of the leg, he states he has pain with sleeping on the right side. He has not had PT or injections in the right hip. He does has an implanted tens unit which is no longer functioning. [facility] Medical History (Updated 10/24/25 @ 11:25 by Ismael Mooney PA-C) Spinal cord stimulator status Monoclonal gammopathy Deviated nasal septum Vitamin D deficiency Low back pain Inguinal hernia Epilepsy Soft tissue lesion of knee region Weight loss Fatigue Lumbar spinal stenosis Dyslipidemia Depression Hypertension Closed right ankle fracture Injury of left ankle Surgical History Hx of hernia repair History of surgery on lower extremity Status post insertion of spinal cord stimulator Family History Mother Fibromyalgia Arthritis Hypertension Father Medical history unknown Social History Household Members: Significant Other Alcohol intake: never Patient Tobacco Use Status: Never used Tobacco Current occupational status: unemployed 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 No pain with ROM of the hip. Pain along the greater trochanter. No pain with hip flexion or abduction.There is no tenderness along the si joint, Negative SLR. NVI. Office Procedures AMB Joint Injection/Aspiration Joint Injection/Aspiration Primary Site: Right Trochanteric Bursa Prep: site was prepped using aseptic technique, ethochloride spray was applied and injection warnings given Injected: 40 mg of, Decadron, with 3 mL of, 1% plain Lidocaine and 0.25% Bupivacaine Procedure: The patient tolerated the procedure well and there was some relief with the local anesthesia Coding 39876 - Glenohumeral/Tronchanteric Bursa/Intraarticular Procedure code (CPT) selection complete Assessment & Plan Assessment & Plan (1) Trochanteric bursitis, right hip: Code(s): M70.61 - Trochanteric bursitis, right hip Category: Medical Plan: We discussed options today which include conservative management with physical therapy and steroid injections. The patient did consent to proceed with right trochanteric bursa steroid injection which he tolerated well. I also placed an order for physical therapy which she will contact them to make an appointment. If symptoms persist or worsen over the next 8-12 weeks the patient contact us to discuss further options otherwise follow up as needed. Orders: Orders PT Evaluation and Treatment Today M70.61 - Trochanteric bursitis, right hip XR hip BI w PEL1V Today M25.559 - Pain in unspecified hip Coding Level of Care Code New Pt Level 3 (96395) Complex visit Add On G2211 Diagnoses Trochanteric bursitis, right hip M70.61 CPT Codes Coding - Joint 7: - Glenohumeral/Tronchanteric Bursa/Intraarticular ([id number])
== END 2025-10-24 11:42 | disposition home or self-care (01) ==
LOC: HO.HOS 10:57
PROVIDERS: PCP Nurse Practitioner Primary Care; Visit Provider Physician Assistant
DX: M70.61 Trochanteric bursitis, right hip (principal)
CPT/HCPCS: 20610; 99213

== ENCOUNTER → 2025-10-24 10:58 | Outpatient (BNV) | payer OTHER, SELFPAY | PROVIDERS: Visit Provider Radiology Diagnostic Radiology | DX: M16.0 Bilateral primary osteoarthritis of hip (principal) | CPT/HCPCS: 73521 ==